=== PATIENT | male | born 1985 | race American Indian/Alaskan Native ===

== ENCOUNTER 2020-12-05 11:35 | Inpatient (IN) | payer OTHER ==
[2020-12-05] MEDS ORDERED: ACETAMINOPHEN 325 MG TAB ONE (11:54)
[2020-12-05] MEDS ORDERED: SODIUM CHLORIDE 0.9% 500 ML 500 ML IV ONE (11:56)
[2020-12-05] MEDS ORDERED: ACETAMINOPHEN 325 MG TAB PO ONE (11:57)
--- NOTE | 2020-12-05 12:08 | Event Note ---
ED Screening Note Date of service: 12/05/20 Time: 12:06 ED Screening Note: 35-year-old male patient presents emergency department with complaints of fever, nausea, vomiting, diarrhea, and fatigue for approximately 8 days. Tested negative for COVID-19 at local urgent care facility today. Temperature 102.3 in triage --> ordered Tylenol SpO2 85% on room air --> ordered supplemental O2 HR 123 --> RN ordered IVF + lactic acid & cultures per sepsis protocol General: Awake, appropriately interactive, no acute distress. Neck: Supple. Full range of motion intact. Cardiovascular: Tachycardic. Normal peripheral perfusion. Pulmonary: No respiratory distress. Patient is speaking normally without use of accessory muscles. Skin: No apparent rashes or lesions. Neurological: No facial asymmetry. Speech is clear. Follows commands. Patient is alert and oriented. Musculoskeletal: Moves all four extremities spontaneously with normal range of motion. Psych: Cooperative. Appropriate mood and affect. I have greeted and performed a focused rapid initial assessment of this patient. A comprehensive ED assessment and evaluation of the patient, analysis of all test results, and completion of the medical decision-making process will be conducted by additional ED providers. This initial assessment/diagnostic orders/clinical plan/treatment(s) is/are subject to change based on patients health status, clinical progression and re-assessment. Further treatment and workup at subsequent clinical provider's discretion. Patient/guardian urged not to elope from the ED as their condition may be serious if not clinically assessed and managed.
[2020-12-05 12:19] LABS: Basophils # (Auto) 0.1 K/mm3 (0.0-0.1); Basophils % (Auto) 1.5 % (0.0-1.8); Hematocrit 47.3 % (35.5-45.6); Hemoglobin 16.2 gm/dl (11.8-15.2); Lymphocytes # (Auto) 1.3 K/mm3 (1.2-5.4); Lymphocytes % (Auto) 24.4 % (13.4-35.0); Mean Corpuscular HGB Conc 34 % (32-34); Mean Corpuscular Volume 85 fl (84-94); Monocytes # (Auto) 0.2 K/mm3 (0.0-0.8); Monocytes % (Auto) 4.3 % (0.0-7.3); Platelet Count 256 K/mm3 (140-440); Red Blood Count 5.53 M/mm3 (3.65-5.03); Red Cell Distribution Width 14.2 % (13.2-15.2)
[2020-12-05 12:32] LABS: Albumin 3.6 g/dL (3.9-5); Calcium 8.7 mg/dL (8.4-10.2)
[2020-12-05 12:35] LABS: INR 0.94 (0.87-1.13)
--- NOTE | 2020-12-05 12:45 | XRay Report ---
CHEST 2 VIEWS INDICATION: possible Sepsis. COMPARISON: None FINDINGS: SUPPORT DEVICES: None. HEART: Within normal limits. LUNGS/PLEURA: Mild patchy bibasilar predominant airspace disease and central peribronchial thickening , all of which appears to be fairly symmetric. Given these findings, there could be an underlying com ponent of edema. No pneumothorax. ADDITIONAL FINDINGS: None. IMPRESSION: 1. Pulmonary findings as above. Signer Name: Maxx Sweeney MD Signed: 12/05/2020 12:41 PM Workstation Name: [id number]
[2020-12-05] MEDS ORDERED: ONDANSETRON 4 MG/2 ML INJ IV ONE (13:17)
[2020-12-05] MEDS ORDERED: methylPREDNISolone Sod Succinate 125 MG/2 ML INJ IV ONE (13:17)
[2020-12-05] MEDS ORDERED: cefTRIAXone/NS 1 GM/50 ML 1 GM/50 ML BAG IV ONE (13:18)
[2020-12-05] MEDS ORDERED: AZITHROMYCIN/NS 500 MG/250 ML 500 MG/250 ML BAG IV ONE (13:18)
--- NOTE | 2020-12-05 13:57 | Emergency Department Report ---
HPI - General Chief Complaint: Nausea/Vomiting/Diarrhea Time Seen by Provider: 12/05/20 12:58 - HPI HPI: This is a 35-year-old male presents to the emergency department with a complaint of a 2-week history of nausea with vomiting, generalized weakness and fatigue, intermittent shortness of breath, and subjective fever. Patient denies any cough, abdominal pain, chest pain, lower extremity swelling. Patient went to an urgent care this afternoon and had a negative [id number] Covid test, but was found to have a low oxygen saturation, and was sent to the emergency department. He denies any past medical history. He just moved here from [place] about 1 month ago and therefore does not have a local primary care physician. He denies any tobacco or illicit drug use. He has not taken anything for symptoms prior to presentation. No sick contacts at home. No obvious known exposure to anyone with COVID-19. ED Past Medical Hx - Past Medical History Previous Medical History?: No - Surgical History Past Surgical History?: No - Social History Smoking Status: Never Smoker Substance Use Type: None - Medications Home Medications: Home Medications Medication Instructions Recorded Confirmed Last Taken Type No Known Home Medications [No 12/05/20 12/05/20 Unknown History Reported Home Medications] ED Review of Systems ROS: Stated complaint: POSSIBLE FOOD POISONING Other details as noted in HPI Comment: All other systems reviewed and negative Constitutional: diaphoresis, fever (Subjective) Eyes: denies: eye pain ENT: denies: ear pain, throat pain Respiratory: shortness of breath. denies: cough Cardiovascular: denies: chest pain, edema Gastrointestinal: nausea, vomiting Genitourinary: denies: dysuria, discharge Musculoskeletal: myalgia. denies: joint swelling Skin: denies: rash, lesions Neurological: denies: numbness, paresthesias Physical Exam - Physical Exam Vital Signs: Vital Signs 12/05/20 11:52 Temperature 102.3 F H Pulse Rate 123 H Respiratory 24 Rate Blood Pressure 146/91 O2 Sat by Pulse 85 Oximetry Physical Exam: GENERAL: The patient is well-developed well-nourished. HENT: Normocephalic. Atraumatic. Patient has moist mucous membranes. EYES: Extraocular motions are intact. Pupils equal reactive to light bilaterally. NECK: Supple. Trachea is midline. CHEST/LUNGS: Clear to auscultation. There is no respiratory distress noted. HEART/CARDIOVASCULAR: Regular. There is moderate tachycardia. There is no murmur. ABDOMEN: Abdomen is soft, nontender. Patient has normal bowel sounds. There is no abdominal distention. SKIN: Patient is diaphoretic. NEURO: The patient is awake, alert, and oriented. The patient is cooperative. The patient has no focal neurologic deficits. Normal speech. MUSCULOSKELETAL: There is no tenderness or deformity. There is no limitation range of motion. ED Course Vital Signs 12/05/20 11:52 Temperature 102.3 F H Pulse Rate 123 H Respiratory 24 Rate Blood Pressure 146/91 O2 Sat by Pulse 85 Oximetry ED Medical Decision Making - Lab Data Result diagrams: 12/05/20 12:03 12/05/20 12:03 Lab Results 12/05/20 12/05/20 12/05/20 Range/Units 12:03 12:03 12:03 WBC 5.5 (4.5-11.0) K/mm3 RBC 5.53 H (3.65-5.03) M/mm3 Hgb 16.2 H (11.8-15.2) gm/dl Hct 47.3 H (35.5-45.6) % MCV 85 (84-94) fl MCH 29 (28-32) pg MCHC 34 (32-34) % RDW 14.2 (13.2-15.2) % Plt Count 256 (140-440) K/mm3 Lymph % (Auto) 24.4 (13.4-35.0) % [place] % (Auto) 4.3 (0.0-7.3) % Eos % (Auto) 0.0 (0.0-4.3) % Baso % (Auto) 1.5 (0.0-1.8) % Lymph # (Auto) 1.3 (1.2-5.4) K/mm3 [place] # (Auto) 0.2 (0.0-0.8) K/mm3 Eos # (Auto) 0.0 (0.0-0.4) K/mm3 Baso # (Auto) 0.1 (0.0-0.1) K/mm3 Seg Neutrophils % 69.8 (40.0-70.0) % Seg Neutrophils # 3.9 (1.8-7.7) K/mm3 PT 12.4 (12.2-14.9) Sec. INR 0.94 (0.87-1.13) D-Dimer (0-234) ng/mlDDU VBG pH (7.320-7.420) Sodium 132 L (137-145) mmol/L Potassium 4.1 (3.6-5.0) mmol/L Chloride 93.5 L (98-107) mmol/L Carbon Dioxide 30 (22-30) mmol/L Anion Gap 13 mmol/L BUN 19 (9-20) mg/dL Creatinine 2.0 H (0.8-1.3) mg/dL Estimated GFR 46 ml/min BUN/Creatinine Ratio 10 % Glucose 124 H (75-100) mg/dL Lactic Acid (0.7-2.0) mmol/L Calcium 8.7 (8.4-10.2) mg/dL Ferritin (30.0-300.0) ng/mL Total Bilirubin 0.40 (0.1-1.2) mg/dL AST 119 H (5-40) units/L ALT 67 H (7-56) units/L Alkaline Phosphatase 26 L (35-129) units/L Lactate Dehydrogenase (91-180) units/L C-Reactive Protein (0.00-1.30) mg/dL NT-Pro-B Natriuret Pep (0-450) pg/mL Total Protein 7.1 (6.3-8.2) g/dL Albumin 3.6 L (3.9-5) g/dL Albumin/Globulin Ratio 1.0 % 12/05/20 12/05/20 12/05/20 Range/Units 12:03 12:03 12:03 WBC (4.5-11.0) K/mm3 RBC (3.65-5.03) M/mm3 Hgb (11.8-15.2) gm/dl Hct (35.5-45.6) % MCV (84-94) fl MCH (28-32) pg MCHC (32-34) % RDW (13.2-15.2) % Plt Count (140-440) K/mm3 Lymph % (Auto) (13.4-35.0) % [place] % (Auto) (0.0-7.3) % Eos % (Auto) (0.0-4.3) % Baso % (Auto) (0.0-1.8) % Lymph # (Auto) (1.2-5.4) K/mm3 [place] # (Auto) (0.0-0.8) K/mm3 Eos # (Auto) (0.0-0.4) K/mm3 Baso # (Auto) (0.0-0.1) K/mm3 Seg Neutrophils % (40.0-70.0) % Seg Neutrophils # (1.8-7.7) K/mm3 PT (12.2-14.9) Sec. INR (0.87-1.13) D-Dimer (0-234) ng/mlDDU VBG pH 7.386 (7.320-7.420) Sodium (137-145) mmol/L Potassium (3.6-5.0) mmol/L Chloride (98-107) mmol/L Carbon Dioxide (22-30) mmol/L Anion Gap mmol/L BUN (9-20) mg/dL Creatinine (0.8-1.3) mg/dL Estimated GFR ml/min BUN/Creatinine Ratio % Glucose (75-100) mg/dL Lactic Acid 1.80 (0.7-2.0) mmol/L Calcium (8.4-10.2) mg/dL Ferritin (30.0-300.0) ng/mL Total Bilirubin (0.1-1.2) mg/dL AST (5-40) units/L ALT (7-56) units/L Alkaline Phosphatase (35-129) units/L Lactate Dehydrogenase (91-180) units/L C-Reactive Protein (0.00-1.30) mg/dL NT-Pro-B Natriuret Pep 9.40 (0-450) pg/mL Total Protein (6.3-8.2) g/dL Albumin (3.9-5) g/dL Albumin/Globulin Ratio % 12/05/20 12/05/20 12/05/20 Range/Units 14:09 14:09 14:09 WBC (4.5-11.0) K/mm3 RBC (3.65-5.03) M/mm3 Hgb (11.8-15.2) gm/dl Hct (35.5-45.6) % MCV (84-94) fl MCH (28-32) pg MCHC (32-34) % RDW (13.2-15.2) % Plt Count (140-440) K/mm3 Lymph % (Auto) (13.4-35.0) % [place] % (Auto) (0.0-7.3) % Eos % (Auto) (0.0-4.3) % Baso % (Auto) (0.0-1.8) % Lymph # (Auto) (1.2-5.4) K/mm3 [place] # (Auto) (0.0-0.8) K/mm3 Eos # (Auto) (0.0-0.4) K/mm3 Baso # (Auto) (0.0-0.1) K/mm3 Seg Neutrophils % (40.0-70.0) % Seg Neutrophils # (1.8-7.7) K/mm3 PT (12.2-14.9) Sec. INR (0.87-1.13) D-Dimer 719.22 H (0-234) ng/mlDDU VBG pH (7.320-7.420) Sodium (137-145) mmol/L Potassium (3.6-5.0) mmol/L Chloride (98-107) mmol/L Carbon Dioxide (22-30) mmol/L Anion Gap mmol/L BUN (9-20) mg/dL Creatinine (0.8-1.3) mg/dL Estimated GFR ml/min BUN/Creatinine Ratio % Glucose (75-100) mg/dL Lactic Acid (0.7-2.0) mmol/L Calcium (8.4-10.2) mg/dL Ferritin 631.9 H (30.0-300.0) ng/mL Total Bilirubin (0.1-1.2) mg/dL AST (5-40) units/L ALT (7-56) units/L Alkaline Phosphatase (35-129) units/L Lactate Dehydrogenase 700 H (91-180) units/L C-Reactive Protein 7.00 H (0.00-1.30) mg/dL NT-Pro-B Natriuret Pep (0-450) pg/mL Total Protein (6.3-8.2) g/dL Albumin (3.9-5) g/dL Albumin/Globulin Ratio % 12/05/20 Range/Units 14:50 WBC (4.5-11.0) K/mm3 RBC (3.65-5.03) M/mm3 Hgb (11.8-15.2) gm/dl Hct (35.5-45.6) % MCV (84-94) fl MCH (28-32) pg MCHC (32-34) % RDW (13.2-15.2) % Plt Count (140-440) K/mm3 Lymph % (Auto) (13.4-35.0) % [place] % (Auto) (0.0-7.3) % Eos % (Auto) (0.0-4.3) % Baso % (Auto) (0.0-1.8) % Lymph # (Auto) (1.2-5.4) K/mm3 [place] # (Auto) (0.0-0.8) K/mm3 Eos # (Auto) (0.0-0.4) K/mm3 Baso # (Auto) (0.0-0.1) K/mm3 Seg Neutrophils % (40.0-70.0) % Seg Neutrophils # (1.8-7.7) K/mm3 PT (12.2-14.9) Sec. INR (0.87-1.13) D-Dimer (0-234) ng/mlDDU VBG pH (7.320-7.420) Sodium (137-145) mmol/L Potassium (3.6-5.0) mmol/L Chloride (98-107) mmol/L Carbon Dioxide (22-30) mmol/L Anion Gap mmol/L BUN (9-20) mg/dL Creatinine (0.8-1.3) mg/dL Estimated GFR ml/min BUN/Creatinine Ratio % Glucose (75-100) mg/dL Lactic Acid 1.60 (0.7-2.0) mmol/L Calcium (8.4-10.2) mg/dL Ferritin (30.0-300.0) ng/mL Total Bilirubin (0.1-1.2) mg/dL AST (5-40) units/L ALT (7-56) units/L Alkaline Phosphatase (35-129) units/L Lactate Dehydrogenase (91-180) units/L C-Reactive Protein (0.00-1.30) mg/dL NT-Pro-B Natriuret Pep (0-450) pg/mL Total Protein (6.3-8.2) g/dL Albumin (3.9-5) g/dL Albumin/Globulin Ratio % - EKG Data -: EKG Interpreted by Me EKG shows normal: sinus rhythm, axis (Left axis deviation), intervals, QRS complexes, ST-T waves Rate: tachycardia (120 bpm) - EKG Data When compared to previous EKG there are: previous EKG unavailable Interpretation: other (Sinus tachycardia at 120 bpm, left axis deviation. No ST elevation HI.) - Radiology Data Radiology results: image reviewed interpreted by me: Chest x-ray shows mild patchy bilateral infiltrates concerning for atypical or viral pneumonia. No pneumothorax. - Medical Decision Making Patient has been dealing with some upper respiratory type symptoms over the past 1 to 2 weeks. He went to an urgent care today was found to have a low pulse ox. Despite allegedly having a negative Covid test this afternoon, the patient appears consistent with a suspected COVID-19 infection. He was 85% on room air through triage and 90 to 92% on room air when I saw him in the room. He was placed on supplemental oxygen. Chest x-ray shows bilateral patchy infiltrates concerning for atypical viral pneumonia. No leukocytosis. Patient has some mild renal insufficiency with a GFR of 45 and a creatinine of 2, transaminitis, and elevated inflammatory markers such as D- dimer, LDH, CRP and ferritin. He has been given Solu-Medrol, IV fluid resuscitation and IV antibiotics. Patient will be admitted to the hospital for further evaluation treatment was accepted for admission by the hospitalist, Dr. Roth. Critical Care Time: No Critical care attestation.: If time is entered above; I have spent that time in minutes in the direct care of this critically ill patient, excluding procedure time. ED Disposition Clinical Impression: Suspected COVID-19 virus infection, Hypoxia, Acute renal insufficiency Pneumonia Qualifiers: Pneumonia type: due to unspecified organism Laterality: bilateral Lung location: unspecified part of lung Qualified Code(s): J18.9 - Pneumonia, unspecified organism Disposition: OP ADMIT IP TO THIS HOSP Is pt being admited?: Yes Condition: Serious Time of Disposition: 14:57
[2020-12-05 16:21] LABS: Bilirubin,Urine NEG (Negative); Blood,Urine LG (Negative); Color,Urine Amber (Yellow); Mucus,Urine 1+ /HPF; Urobilinogen,Urine < 2.0 mg/dL (<2.0)
[2020-12-05] MEDS: ACETAMINOPHEN 325 MG TAB PO PRN (23:32)
--- NOTE | 2020-12-06 00:30 | History and Physical Report ---
History of Present Illness Date of examination: 12/05/20 Date of admission: 12/05/20 14:57 Chief complaint: Low oxygen levels for today Sent by urgent care clinic History of present illness: 35-year-old -[place] male with no significant past medical history comes in for nausea vomiting and generalized weakness. Also intermittent shortness of breath and subjective fever. Denies any cough. Patient went to an urgent care facility this afternoon and had a negative [id number] Covid test was false found to have a low oxygen saturation and was sent to the emergency room for evaluation. No exposure to coronavirus. Patient also has vomiting and diarrhea for the last 3 to 4 days - Past Medical History Previous Medical History?: No - Surgical History Past Surgical History?: No - Social History Smoking Status: Never Smoker Substance Use Type: None Family history Htn Review of Systems ROS: Stated complaint: POSSIBLE FOOD POISONING Other details as noted in HPI Comment: All other systems reviewed and negative Constitutional: diaphoresis, fever (Subjective) Eyes: denies: eye pain ENT: denies: ear pain, throat pain Respiratory: shortness of breath. denies: cough Cardiovascular: denies: chest pain, edema Gastrointestinal: nausea, vomiting Genitourinary: denies: dysuria, discharge Musculoskeletal: myalgia. denies: joint swelling Skin: denies: rash, lesions Neurological: denies: numbness, paresthesias Medications and Allergies Allergies Allergy/AdvReac Type Severity Reaction Status Date / Time No Known Allergies Allergy Unverified 12/05/20 11:47 Home Medications Medication Instructions Recorded Confirmed Last Taken Type No Known Home Medications [No 12/05/20 12/05/20 Unknown History Reported Home Medications] Active Meds: Active Medications Acetaminophen (Acetaminophen 325 Mg Tab) 650 mg PO Q6H PRN PRN Reason: Pain, Mild (1-3) Last Admin: 12/05/20 23:32 Dose: 650 mg Documented by: Exam - Constitutional Vitals: Temp Pulse Resp BP Pulse Ox 97.7 F 104 H 20 132/88 89 12/05/20 22:43 12/05/20 22:43 12/05/20 22:43 12/05/20 22:43 12/05/20 22:43 General appearance: Present: no acute distress, well-nourished - EENT Eyes: Present: PERRL ENT: hearing intact, clear oral mucosa - Neck Neck: Present: supple, normal ROM - Respiratory Respiratory effort: normal Respiratory: bilateral: CTA - Cardiovascular Heart rate: 88 Rhythm: regular Heart Sounds: Present: S1 & S2. Absent: rub, click - Extremities Extremities: pulses symmetrical, No edema Peripheral Pulses: within normal limits - Abdominal General gastrointestinal: Present: soft, non-tender, non-distended, normal bowel sounds Male genitourinary: Present: normal - Rectal Rectal Exam: deferred - Integumentary Integumentary: Present: clear, warm, dry - Musculoskeletal Musculoskeletal: gait normal, strength equal bilaterally - Psychiatric Psychiatric: appropriate mood/affect, intact judgment & insight - Neurologic Neurologic: CNII-XII intact, moves all extremities - Allied Health Allied health notes reviewed: nursing, case management Results - Labs CBC & Chem 7: 12/05/20 12:03 12/05/20 12:03 Labs: Laboratory Last Values WBC 5.5 K/mm3 (4.5-11.0) 12/05/20 12:03 RBC 5.53 M/mm3 (3.65-5.03) H 12/05/20 12:03 Hgb 16.2 gm/dl (11.8-15.2) H 12/05/20 12:03 Hct 47.3 % (35.5-45.6) H 12/05/20 12:03 MCV 85 fl (84-94) 12/05/20 12:03 MCH 29 pg (28-32) 12/05/20 12:03 MCHC 34 % (32-34) 12/05/20 12:03 RDW 14.2 % (13.2-15.2) 12/05/20 12:03 Plt Count 256 K/mm3 (140-440) 12/05/20 12:03 Lymph % (Auto) 24.4 % (13.4-35.0) 12/05/20 12:03 [place] % (Auto) 4.3 % (0.0-7.3) 12/05/20 12:03 Eos % (Auto) 0.0 % (0.0-4.3) 12/05/20 12:03 Baso % (Auto) 1.5 % (0.0-1.8) 12/05/20 12:03 Lymph # (Auto) 1.3 K/mm3 (1.2-5.4) 12/05/20 12:03 [place] # (Auto) 0.2 K/mm3 (0.0-0.8) 12/05/20 12:03 Eos # (Auto) 0.0 K/mm3 (0.0-0.4) 12/05/20 12:03 Baso # (Auto) 0.1 K/mm3 (0.0-0.1) 12/05/20 12:03 Seg Neutrophils % 69.8 % (40.0-70.0) 12/05/20 12:03 Seg Neutrophils # 3.9 K/mm3 (1.8-7.7) 12/05/20 12:03 PT 12.4 Sec. (12.2-14.9) 12/05/20 12:03 INR 0.94 (0.87-1.13) 12/05/20 12:03 D-Dimer 719.22 ng/mlDDU (0-234) H 12/05/20 14:09 VBG pH 7.386 (7.320-7.420) 12/05/20 12:03 Sodium 132 mmol/L (137-145) L 12/05/20 12:03 Potassium 4.1 mmol/L (3.6-5.0) 12/05/20 12:03 Chloride 93.5 mmol/L (98-107) L 12/05/20 12:03 Carbon Dioxide 30 mmol/L (22-30) 12/05/20 12:03 Anion Gap 13 mmol/L 12/05/20 12:03 BUN 19 mg/dL (9-20) 12/05/20 12:03 Creatinine 2.0 mg/dL (0.8-1.3) H 12/05/20 12:03 Estimated GFR 46 ml/min 12/05/20 12:03 BUN/Creatinine Ratio 10 % 12/05/20 12:03 Glucose 124 mg/dL (75-100) H 12/05/20 12:03 Lactic Acid 1.60 mmol/L (0.7-2.0) 12/05/20 14:50 Calcium 8.7 mg/dL (8.4-10.2) 12/05/20 12:03 Ferritin 631.9 ng/mL (30.0-300.0) H 12/05/20 14:09 Total Bilirubin 0.40 mg/dL (0.1-1.2) 12/05/20 12:03 AST 119 units/L (5-40) H 12/05/20 12:03 ALT 67 units/L (7-56) H 12/05/20 12:03 Alkaline Phosphatase 26 units/L (35-129) L 12/05/20 12:03 Lactate Dehydrogenase 700 units/L (91-180) H 12/05/20 14:09 C-Reactive Protein 7.00 mg/dL (0.00-1.30) H 12/05/20 14:09 NT-Pro-B Natriuret Pep 9.40 pg/mL (0-450) 12/05/20 12:03 Total Protein 7.1 g/dL (6.3-8.2) 12/05/20 12:03 Albumin 3.6 g/dL (3.9-5) L 12/05/20 12:03 Albumin/Globulin Ratio 1.0 % 12/05/20 12:03 Urine Color [place] (Yellow) 12/05/20 15:41 Urine Turbidity Slightly-cloudy (Clear) 12/05/20 15:41 Urine pH 5.0 (5.0-7.0) 12/05/20 15:41 Ur Specific [place] 1.023 (1.003-1.030) 12/05/20 15:41 Urine Protein 100 mg/dl mg/dL (Negative) 12/05/20 15:41 Urine Glucose (UA) Neg mg/dL (Negative) 12/05/20 15:41 Urine Ketones 20 mg/dL (Negative) 12/05/20 15:41 Urine Blood Lg (Negative) 12/05/20 15:41 Urine Nitrite Neg (Negative) 12/05/20 15:41 Urine Bilirubin Neg (Negative) 12/05/20 15:41 Urine Urobilinogen < 2.0 mg/dL (<2.0) 12/05/20 15:41 Ur Leukocyte Esterase Neg (Negative) 12/05/20 15:41 Urine WBC (Auto) 18.0 /HPF (0.0-6.0) H 12/05/20 15:41 Urine RBC (Auto) 2.0 /HPF (0.0-6.0) 04/08/21 15:41 U Epithel Cells (Auto) < 1.0 /HPF (0-13.0) 12/05/20 15:41 Urine Mucus 1+ /HPF 12/05/20 15:41 Microbiology: Microbiology 12/05/20 12:03 Peripheral/Venous Blood Culture - Preliminary Culture in Progress 12/05/20 12:03 Peripheral/Venous Blood Culture - Preliminary Culture in Progress - Imaging and Cardiology Imaging and Cardiology: Chest x-ray Mild patchy bibasilar predominant airspace disease and central peribronchial thickening all of which appears to be fairly symmetric. Given these findings there could be an underlying component of edema. No pneumothorax. Art/IV: Voiding Method Toilet Assessment and Plan Advance Directives: Yes (Full code) VTE prophylaxis?: Chemical Plan of care discussed with patient/family: Yes - Patient Problems (1) Acute respiratory failure with hypoxia Current Visit: Yes Status: Acute Plan to address problem: Oxygen as required (2) Bilateral pneumonia Current Visit: Yes Status: Acute Plan to address problem: Treat as community-acquired pneumonia for now IV ceftriaxone and Zithromax for now ID consult requested (3) Suspected COVID-19 virus infection Current Visit: Yes Status: Acute Plan to address problem: Coronavirus PCR in a.m. (4) TIESHA (acute kidney injury) Current Visit: Yes Status: Acute Plan to address problem: IV fluids for 12 hours Vasomotor nephropathy (5) Acute gastroenteritis Current Visit: Yes Status: Acute Plan to address problem: Possible secondary to Covid IV normal saline for 12 hours (6) Transaminitis Current Visit: Yes Status: Acute Plan to address problem: Elevated LFTs possible secondary to Covid (7) Hyponatremia Current Visit: Yes Status: Acute Plan to address problem: IV normal saline for 12 hours (8) DVT prophylaxis Current Visit: Yes Status: Acute Plan to address problem: Lovenox 30 mg subcu daily and GI prophylaxis
[2020-12-06] MEDS ORDERED: dexAMETHasone 4 MG/ML VIAL IV SCH (02:00)
[2020-12-06] MEDS: cefTRIAXone/NS 2 GM/100 ML 2 GM/100 ML BAG IV SCH (10:41)
[2020-12-06] MEDS: AZITHROMYCIN/NS 500 MG/250 ML 500 MG/250 ML BAG IV SCH (10:41)
--- NOTE | 2020-12-06 11:29 | Electrocardiograph Report ---
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
[2020-12-06] MEDS: dexAMETHasone 4 MG/ML VIAL IV SCH (13:33)
--- NOTE | 2020-12-06 15:36 | Progress Note ---
Assessment and Plan Assessment and plan: (1) Acute respiratory failure with hypoxia Current Visit: Yes Status: Acute Plan to address problem: Supplement O2 (2) Bilateral pneumonia Current Visit: Yes Status: Acute Plan to address problem: Treat as community-acquired pneumonia for now IV ceftriaxone and Zithromax for now procal pending (3) Suspected COVID-19 virus infection Current Visit: Yes Status: Acute Plan to address problem: Coronavirus PCR positive ID consulted (4) TIESHA (acute kidney injury) Current Visit: Yes Status: Acute Plan to address problem: IV fluids for 12 hours Vasomotor nephropathy (5) Acute gastroenteritis Current Visit: Yes Status: Acute Plan to address problem: Possible secondary to Covid IV normal saline for 12 hours (6) Transaminitis Current Visit: Yes Status: Acute Plan to address problem: Elevated LFTs possible secondary to Covid Continue to monitor (7) Hyponatremia Current Visit: Yes Status: Acute Plan to address problem: IV normal saline for 12 hours (8) DVT prophylaxis Current Visit: Yes Status: Acute Plan to address problem: Lovenox 30 mg subcu daily and GI prophylaxis DISPOSITION: continue treatment COVID+, continue O2 supplementation History Interval history: 35-year-old -[place] male with no significant past medical history comes in for nausea vomiting and generalized weakness. Also intermittent shortness of breath and subjective fever. Denies any cough. Patient went to an urgent care facility and had a negative [id number] Covid test, however pt found to have a low oxygen saturation and was sent to the emergency room for evaluation. Patient also has vomiting and diarrhea for the last 3 to 4 days. 12/06: pt continues to have SOB w/exertion, no diarrhea however decreased PO intake. COVID PCR+, infectious disease consulted. Hospitalist Physical - Physical exam Narrative exam: General appearance: Present: no acute distress, well-nourished EENT: PERRL, EOM intact, hearing intact, clear oral mucosa, dentition normal Neck: Present: supple, normal ROM Respiratory: bilateral: CTA, negative: rales, rhonchi, wheezing Cardiovascular: Rhythm: regular Heart Sounds: Present: S1 & S2. Absent: gallop, rub Extremities: no ischemia, No edema, normal temperature, normal color, Full ROM Abdominal: soft, non-tender, non-distended, normal bowel sounds Integumentary: Present: clear, warm, dry Psychiatric: appropriate mood/affect, intact judgment & insight Neurologic: CNII-XII intact, moves all extremities - Constitutional Vitals: Temp Pulse Resp BP Pulse Ox 98.8 F 107 H 24 146/97 92 12/06/20 11:11 12/06/20 11:11 12/06/20 11:11 12/06/20 11:11 12/06/20 11:11 Results - Labs CBC & Chem 7: 12/05/20 12:03 12/05/20 12:03 Labs: Laboratory Last Values WBC 5.5 K/mm3 (4.5-11.0) 12/05/20 12:03 RBC 5.53 M/mm3 (3.65-5.03) H 12/05/20 12:03 Hgb 16.2 gm/dl (11.8-15.2) H 12/05/20 12:03 Hct 47.3 % (35.5-45.6) H 12/05/20 12:03 MCV 85 fl (84-94) 12/05/20 12:03 MCH 29 pg (28-32) 12/05/20 12:03 MCHC 34 % (32-34) 12/05/20 12:03 RDW 14.2 % (13.2-15.2) 12/05/20 12:03 Plt Count 256 K/mm3 (140-440) 12/05/20 12:03 Lymph % (Auto) 24.4 % (13.4-35.0) 12/05/20 12:03 [place] % (Auto) 4.3 % (0.0-7.3) 12/05/20 12:03 Eos % (Auto) 0.0 % (0.0-4.3) 12/05/20 12:03 Baso % (Auto) 1.5 % (0.0-1.8) 12/05/20 12:03 Lymph # (Auto) 1.3 K/mm3 (1.2-5.4) 12/05/20 12:03 [place] # (Auto) 0.2 K/mm3 (0.0-0.8) 12/05/20 12:03 Eos # (Auto) 0.0 K/mm3 (0.0-0.4) 12/05/20 12:03 Baso # (Auto) 0.1 K/mm3 (0.0-0.1) 12/05/20 12:03 Seg Neutrophils % 69.8 % (40.0-70.0) 12/05/20 12:03 Seg Neutrophils # 3.9 K/mm3 (1.8-7.7) 12/05/20 12:03 PT 12.4 Sec. (12.2-14.9) 12/05/20 12:03 INR 0.94 (0.87-1.13) 12/05/20 12:03 D-Dimer 719.22 ng/mlDDU (0-234) H 12/05/20 14:09 VBG pH 7.386 (7.320-7.420) 12/05/20 12:03 Sodium 132 mmol/L (137-145) L 12/05/20 12:03 Potassium 4.1 mmol/L (3.6-5.0) 12/05/20 12:03 Chloride 93.5 mmol/L (98-107) L 12/05/20 12:03 Carbon Dioxide 30 mmol/L (22-30) 12/05/20 12:03 Anion Gap 13 mmol/L 12/05/20 12:03 BUN 19 mg/dL (9-20) 12/05/20 12:03 Creatinine 2.0 mg/dL (0.8-1.3) H 12/05/20 12:03 Estimated GFR 46 ml/min 12/05/20 12:03 BUN/Creatinine Ratio 10 % 12/05/20 12:03 Glucose 124 mg/dL (75-100) H 12/05/20 12:03 Lactic Acid 1.60 mmol/L (0.7-2.0) 12/05/20 14:50 Calcium 8.7 mg/dL (8.4-10.2) 12/05/20 12:03 Ferritin 631.9 ng/mL (30.0-300.0) H 12/05/20 14:09 Total Bilirubin 0.40 mg/dL (0.1-1.2) 12/05/20 12:03 AST 119 units/L (5-40) H 12/05/20 12:03 ALT 67 units/L (7-56) H 12/05/20 12:03 Alkaline Phosphatase 26 units/L (35-129) L 12/05/20 12:03 Lactate Dehydrogenase 700 units/L (91-180) H 12/05/20 14:09 C-Reactive Protein 7.00 mg/dL (0.00-1.30) H 12/05/20 14:09 NT-Pro-B Natriuret Pep 9.40 pg/mL (0-450) 12/05/20 12:03 Total Protein 7.1 g/dL (6.3-8.2) 12/05/20 12:03 Albumin 3.6 g/dL (3.9-5) L 12/05/20 12:03 Albumin/Globulin Ratio 1.0 % 12/05/20 12:03 Procalcitonin 0.16 ng/mL (<0.15) 12/05/20 14:09 Urine Color Zuleima (Yellow) 12/05/20 15:41 Urine Turbidity Slightly-cloudy (Clear) 12/05/20 15:41 Urine pH 5.0 (5.0-7.0) 12/05/20 15:41 Ur Specific [place] 1.023 (1.003-1.030) 12/05/20 15:41 Urine Protein 100 mg/dl mg/dL (Negative) 12/05/20 15:41 Urine Glucose (UA) Neg mg/dL (Negative) 12/05/20 15:41 Urine Ketones 20 mg/dL (Negative) 12/05/20 15:41 Urine Blood Lg (Negative) 12/05/20 15:41 Urine Nitrite Neg (Negative) 12/05/20 15:41 Urine Bilirubin Neg (Negative) 12/05/20 15:41 Urine Urobilinogen < 2.0 mg/dL (<2.0) 12/05/20 15:41 Ur Leukocyte Esterase Neg (Negative) 12/05/20 15:41 Urine WBC (Auto) 18.0 /HPF (0.0-6.0) H 12/05/20 15:41 Urine RBC (Auto) 2.0 /HPF (0.0-6.0) 12/05/20 15:41 U Epithel Cells (Auto) < 1.0 /HPF (0-13.0) 12/05/20 15:41 Urine Mucus 1+ /HPF 12/05/20 15:41 Coronavirus (PCR) Positive (Negative) A 12/06/20 Unknown Microbiology: Microbiology 12/05/20 12:03 Peripheral/Venous Blood Culture - Preliminary NO GROWTH AFTER 24 HOURS 12/05/20 12:03 Peripheral/Venous Blood Culture - Preliminary NO GROWTH AFTER 24 HOURS Art/IV: Voiding Method Toilet Active Medications - Current Medications Current Medications: Generic Name Dose Route Start Last Admin Trade Name Freq PRN Reason Stop Dose Admin Acetaminophen 650 mg 12/05/20 23:16 12/05/20 23:32 Acetaminophen 325 Mg Tab PO 650 mg Q6H PRN Administration Pain, Mild (1-3) Dexamethasone 8 mg 12/06/20 12:00 12/06/20 13:33 Dexamethasone 4 Mg/Ml Vial IV 12/14/20 10:01 8 mg Q24HR DEREK Administration Enoxaparin Sodium 40 mg 12/06/20 22:00 Enoxaparin 40 Mg/0.4 Ml Inj SUB-Q QDAY@2200 DEREK Protocol Azithromycin 500 mg in 250 mls @ 250 mls/hr 12/06/20 10:00 12/06/20 10:41 Zithromax/Ns IV 12/09/20 10:59 250 mls/hr Q24HR DEREK Administration Ceftriaxone Sodium 2 gm in 100 mls @ 200 mls/hr 12/06/20 10:00 12/06/20 10:41 Rocephin/Ns 2 Gm/100 Ml IV 200 mls/hr Q24HR DEREK Administration Protocol Nutrition/Malnutrition Assess - Dietary Evaluation Nutrition/Malnutrition Findings: Nutrition Notes Start: 12/06/20 09:06 Freq: Status: Active Protocol: Document 12/06/20 09:06 ADRYAN (Rec: 12/06/20 09:16 ADRYAN [id number]) Nutrition Notes Need for Assessment generated from: MD Order,superannuation clerk,MST Initial or Follow up Assessment Current Diagnosis Acute Kidney Injury, Respiratory Failure Other Pertinent Diagnosis pneu, acute gastroenteritis Current Diet Regular Labs/Tests 12/05: Na 132 Cr 2 AST 119 ALT 67 Pertinent Medications Decadron Height 6 ft 3 in Weight 133 kg Usual Body Weight 145.45 kg [place] Body Weight (kg) 89.09 BMI 36.6 Intake Prior to Admission Poor Weight change and time frame 8.5% wt loss in 2 weeks Weight Status Morbidly Obese Subjective/Other Information MD order for ONS, RN screen for MST. 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 Pt reports feeling better since coming in and ate 100% of dinner last night but unable to eat breakfast this AM. Pt likes the Ensures and is drinking them. Burn Absent Trauma Absent GI Symptoms None Cultural/Ethnic/Confucianist Belief No pork or beef Current % PO Poor (25-49%) Minimum of two criteria Yes Energy Intake (severe) < or equal to 50% Estimated Energy Requirement > or equal to 5 days Interpretation of Weight Loss (severe) >5% in 1 month #1 Nutrition Diagnosis Malnutrition Etiology acute illness As Evidenced by Signs and Symptoms <50% EER for > or = to 5 days, >5% wt loss in 1 month Is patient on ventilator? No Is Patient Ambulatory and/or Out of Bed Yes REE-([facility]-ambulatory/OOB) [ 3049.319 NUTR.MSJOOB] Kcal/Kg value to use for calculation 18 Approximate Energy Requirements Using 2394 kcal/Kg Calculation Used for Recommendations Kcal/kg Additional Notes Protein: 140-176g (1.2-1.5g/kg AdjBW: 117kg) Fluid: 1 ml/kcal Nutrition Intervention Change Diet Order: Continue Add Supplement/Snack (indicate name/kcal Ensure Enlive BID /protein ) Provides kCal: 700 Provides Protein (gm) 40 Goal #1 Meet at least 75% of protein and energy needs via PO and ONS Anticipated Discharge Needs: Regular Follow-Up By: 12/09/20 Additional Comments FU for intakes and ONS tolerance
[2020-12-06] MEDS: ACETAMINOPHEN 325 MG TAB PO PRN (19:13)
[2020-12-06] MEDS: ENOXAPARIN 40 MG/0.4 ML INJ SUB-Q SCH (21:19)
[2020-12-07] MEDS: ACETAMINOPHEN 325 MG TAB PO PRN ×3 (06:32→22:17)
[2020-12-07 06:55] LABS: Hematocrit 43.6 % (35.5-45.6); Hemoglobin 14.6 gm/dl (11.8-15.2); Mean Corpuscular HGB Conc 33 % (32-34); Mean Corpuscular Volume 87 fl (84-94); Platelet Count 340 K/mm3 (140-440); Red Blood Count 5.02 M/mm3 (3.65-5.03); Red Cell Distribution Width 14.4 % (13.2-15.2)
[2020-12-07 07:12] LABS: Alanine Aminotransferase 63 units/L (7-56); Albumin 3.6 g/dL (3.9-5); BUN/Creatinine Ratio 18; Blood Urea Nitrogen 24 mg/dL (9-20); Calcium 8.4 mg/dL (8.4-10.2); Hemolysis Index 2
[2020-12-07] MEDS: cefTRIAXone/NS 2 GM/100 ML 2 GM/100 ML BAG IV SCH (10:57)
[2020-12-07] MEDS: AZITHROMYCIN/NS 500 MG/250 ML 500 MG/250 ML BAG IV SCH (10:57)
[2020-12-07] MEDS: dexAMETHasone 4 MG/ML VIAL IV SCH (10:57)
--- NOTE | 2020-12-07 11:19 | Progress Note ---
Assessment and Plan Assessment and plan: 35-year-old -[place] male with no significant past medical history comes in for nausea vomiting and generalized weakness. Also intermittent shortness of breath and subjective fever. Denies any cough. Patient went to an urgent care facility and had a negative [id number] Covid test, however pt found to have a low oxygen saturation and was sent to the emergency room for evaluation. Patient also has vomiting and diarrhea for the last 3 to 4 days. (1) Acute respiratory failure with hypoxia Current Visit: Yes Status: Acute Plan to address problem: 2/2 covid PNA Supplement O2 continue dexamethasone If no improvement, consider CTA to r/o PE (2) Bilateral pneumonia Current Visit: Yes Status: Acute Plan to address problem: Treat as community-acquired pneumonia for now IV ceftriaxone and Zithromax for now Procal pending, if low, DC ABX (3) Suspected COVID-19 virus infection Current Visit: Yes Status: Acute Plan to address problem: Coronavirus PCR positive ID consulted, renal function improved, possible remdesevir initiation (4) TIESHA (acute kidney injury) Current Visit: Yes Status: Acute Plan to address problem: Improved with fluids Vasomotor nephropathy (5) Acute gastroenteritis Current Visit: Yes Status: Acute Plan to address problem: Possible secondary to Covid resolved (6) Transaminitis Current Visit: Yes Status: Acute Plan to address problem: Elevated LFTs possible secondary to Covid Continue to monitor (7) Hyponatremia Current Visit: Yes Status: Acute Plan to address problem: IV normal saline for 12 hours (8) DVT prophylaxis Current Visit: Yes Status: Acute Plan to address problem: Lovenox 30 mg subcu daily and GI prophylaxis DISPOSITION: continue treatment COVID+, continue O2 supplementation History Interval history: 12/06: pt continues to have SOB w/exertion, no diarrhea however decreased PO intake. COVID PCR+, infectious disease consulted. 12/07: pt without diarrhea, tolerating diet. on 4L NC O2, continues to have SOB Hospitalist Physical - Physical exam Narrative exam: General appearance: Present: no acute distress, well-nourished EENT: PERRL, EOM intact, hearing intact, clear oral mucosa, dentition normal Neck: Present: supple, normal ROM Respiratory: 4L NC O2, bilateral CTA, negative: rales, rhonchi, wheezing Cardiovascular: Rhythm: regular Heart Sounds: Present: S1 & S2. Absent: gallop, rub Extremities: no ischemia, No edema, normal temperature, normal color, Full ROM Abdominal: soft, non-tender, non-distended, normal bowel sounds Integumentary: Present: clear, warm, dry Psychiatric: appropriate mood/affect, intact judgment & insight Neurologic: CNII-XII intact, moves all extremities - Constitutional Vitals: Temp Pulse Resp BP Pulse Ox 102.2 F H 110 H 20 135/88 96 12/07/20 06:35 12/07/20 07:59 12/07/20 06:35 12/07/20 07:59 12/07/20 09:04 General appearance: Present: no acute distress, well-nourished Results - Labs CBC & Chem 7: 12/07/20 06:13 12/07/20 06:13 Labs: Laboratory Last Values WBC 9.8 K/mm3 (4.5-11.0) 12/07/20 06:13 RBC 5.02 M/mm3 (3.65-5.03) 12/07/20 06:13 Hgb 14.6 gm/dl (11.8-15.2) 12/07/20 06:13 Hct 43.6 % (35.5-45.6) 12/07/20 06:13 MCV 87 fl (84-94) 12/07/20 06:13 MCH 29 pg (28-32) 12/07/20 06:13 MCHC 33 % (32-34) 12/07/20 06:13 RDW 14.4 % (13.2-15.2) 12/07/20 06:13 Plt Count 340 K/mm3 (140-440) 12/07/20 06:13 Lymph % (Auto) 24.4 % (13.4-35.0) 12/05/20 12:03 [place] % (Auto) 4.3 % (0.0-7.3) 12/05/20 12:03 Eos % (Auto) 0.0 % (0.0-4.3) 12/05/20 12:03 Baso % (Auto) 1.5 % (0.0-1.8) 12/05/20 12:03 Lymph # (Auto) 1.3 K/mm3 (1.2-5.4) 12/05/20 12:03 [place] # (Auto) 0.2 K/mm3 (0.0-0.8) 12/05/20 12:03 Eos # (Auto) 0.0 K/mm3 (0.0-0.4) 12/05/20 12:03 Baso # (Auto) 0.1 K/mm3 (0.0-0.1) 12/05/20 12:03 Seg Neutrophils % 69.8 % (40.0-70.0) 12/05/20 12:03 Seg Neutrophils # 3.9 K/mm3 (1.8-7.7) 12/05/20 12:03 PT 12.4 Sec. (12.2-14.9) 12/05/20 12:03 INR 0.94 (0.87-1.13) 12/05/20 12:03 D-Dimer 719.22 ng/mlDDU (0-234) H 12/05/20 14:09 VBG pH 7.386 (7.320-7.420) 12/05/20 12:03 Sodium 143 mmol/L (137-145) D 12/07/20 06:13 Potassium 4.3 mmol/L (3.6-5.0) 12/07/20 06:13 Chloride 99.1 mmol/L (98-107) 12/07/20 06:13 Carbon Dioxide 34 mmol/L (22-30) H 12/07/20 06:13 Anion Gap 14 mmol/L 12/07/20 06:13 BUN 24 mg/dL (9-20) H 12/07/20 06:13 Creatinine 1.3 mg/dL (0.8-1.3) 12/07/20 06:13 Estimated GFR > 60 ml/min 12/07/20 06:13 BUN/Creatinine Ratio 18 % 12/07/20 06:13 Glucose 137 mg/dL (75-100) H 12/07/20 06:13 Lactic Acid 1.60 mmol/L (0.7-2.0) 12/05/20 14:50 Calcium 8.4 mg/dL (8.4-10.2) 12/07/20 06:13 Ferritin 631.9 ng/mL (30.0-300.0) H 12/05/20 14:09 Total Bilirubin 0.40 mg/dL (0.1-1.2) 12/07/20 06:13 AST 53 units/L (5-40) H 12/07/20 06:13 ALT 63 units/L (7-56) H 12/07/20 06:13 Alkaline Phosphatase 28 units/L (35-129) L 12/07/20 06:13 Lactate Dehydrogenase 700 units/L (91-180) H 12/05/20 14:09 C-Reactive Protein 7.00 mg/dL (0.00-1.30) H 12/05/20 14:09 NT-Pro-B Natriuret Pep 9.40 pg/mL (0-450) 12/05/20 12:03 Total Protein 6.5 g/dL (6.3-8.2) 12/07/20 06:13 Albumin 3.6 g/dL (3.9-5) L 12/07/20 06:13 Albumin/Globulin Ratio 1.2 % 12/07/20 06:13 Procalcitonin 0.16 ng/mL (<0.15) 12/05/20 14:09 Urine Color Zuleima (Yellow) 12/05/20 15:41 Urine Turbidity Slightly-cloudy (Clear) 12/05/20 15:41 Urine pH 5.0 (5.0-7.0) 12/05/20 15:41 Ur Specific [place] 1.023 (1.003-1.030) 12/05/20 15:41 Urine Protein 100 mg/dl mg/dL (Negative) 12/05/20 15:41 Urine Glucose (UA) Neg mg/dL (Negative) 12/05/20 15:41 Urine Ketones 20 mg/dL (Negative) 12/05/20 15:41 Urine Blood Lg (Negative) 12/05/20 15:41 Urine Nitrite Neg (Negative) 12/05/20 15:41 Urine Bilirubin Neg (Negative) 12/05/20 15:41 Urine Urobilinogen < 2.0 mg/dL (<2.0) 12/05/20 15:41 Ur Leukocyte Esterase Neg (Negative) 12/05/20 15:41 Urine WBC (Auto) 18.0 /HPF (0.0-6.0) H 12/05/20 15:41 Urine RBC (Auto) 2.0 /HPF (0.0-6.0) 12/05/20 15:41 U Epithel Cells (Auto) < 1.0 /HPF (0-13.0) 12/05/20 15:41 Urine Mucus 1+ /HPF 12/05/20 15:41 Coronavirus (PCR) Positive (Negative) A 12/06/20 Unknown Microbiology: Microbiology 12/05/20 12:03 Peripheral/Venous Blood Culture - Preliminary NO GROWTH AFTER 24 HOURS 12/05/20 12:03 Peripheral/Venous Blood Culture - Preliminary NO GROWTH AFTER 24 HOURS Art/IV: Voiding Method Toilet Active Medications - Current Medications Current Medications: Generic Name Dose Route Start Last Admin Trade Name Freq PRN Reason Stop Dose Admin Acetaminophen 650 mg 12/05/20 23:16 12/07/20 10:57 Acetaminophen 325 Mg Tab PO 650 mg Q6H PRN Administration Pain, Mild (1-3) Dexamethasone 8 mg 12/06/20 12:00 12/07/20 10:57 Dexamethasone 4 Mg/Ml Vial IV 12/14/20 10:01 8 mg Q24HR DEREK Administration Enoxaparin Sodium 40 mg 12/06/20 22:00 12/06/20 21:19 Enoxaparin 40 Mg/0.4 Ml Inj SUB-Q 40 mg QDAY@2200 DEREK Administration Protocol Azithromycin 500 mg in 250 mls @ 250 mls/hr 12/06/20 10:00 12/07/20 10:57 Zithromax/Ns IV 12/09/20 10:59 200 mls/hr Q24HR DEREK Administration Ceftriaxone Sodium 2 gm in 100 mls @ 200 mls/hr 12/06/20 10:00 12/07/20 10:57 Rocephin/Ns 2 Gm/100 Ml IV 200 mls/hr Q24HR DEREK Administration Protocol Nutrition/Malnutrition Assess - Dietary Evaluation Nutrition/Malnutrition Findings: Nutrition Notes Start: 12/06/20 09:06 Freq: Status: Active Protocol: Document 12/06/20 09:06 ADRYAN (Rec: 12/06/20 09:16 ADRYAN [id number]) Nutrition Notes 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 Pt reports feeling better since coming in and ate 100% of dinner last night but unable to eat breakfast this AM. Pt likes the Ensures and is drinking them. Burn Absent Trauma Absent GI Symptoms None Cultural/Ethnic/Episcopalian Belief No pork or beef Current % PO Poor (25-49%) Minimum of two criteria Yes Energy Intake (severe) < or equal to 50% Estimated Energy Requirement > or equal to 5 days Interpretation of Weight Loss (severe) >5% in 1 month #1 Nutrition Diagnosis Malnutrition Etiology acute illness As Evidenced by Signs and Symptoms <50% EER for > or = to 5 days, >5% wt loss in 1 month Is patient on ventilator? No Is Patient Ambulatory and/or Out of Bed Yes REE-([facility]-ambulatory/OOB) [ 3049.319 NUTR.MSJOOB] Kcal/Kg value to use for calculation 18 Approximate Energy Requirements Using 2394 kcal/Kg Calculation Used for Recommendations Kcal/kg Additional Notes Protein: 140-176g (1.2-1.5g/kg AdjBW: 117kg) Fluid: 1 ml/kcal Nutrition Intervention Change Diet Order: Continue Add Supplement/Snack (indicate name/kcal [place] Enlive BID /protein ) Provides kCal: 700 Provides Protein (gm) 40 Goal #1 Meet at least 75% of protein and energy needs via PO and ONS Anticipated Discharge Needs: Regular Follow-Up By: 12/09/20 Additional Comments FU for intakes and ONS tolerance
[2020-12-07] MEDS ORDERED: REMDESIVIR 200 MG in SODIUM CHLORIDE 0.9% 250ML 250 ML IV ONE (14:36)
--- NOTE | 2020-12-07 14:37 | Consultation ---
History of Present Illness - Reason for Consult Consult date: 12/07/20 COVID/hypoxia Requesting physician: YECENIA ASHRAF - History of Present Illness 35 years old male with no significant medical history admitted on 12/05/2020 secondary to generalized weakness, nausea, vomiting, diarrhea and subjective fever for 4 days. Patient denies cough. Patient was seen in an urgent care facility where he was found hypoxic. Covid test there was negative. On arrival, temperature 102.3, HR 123, RR 24, O2 sat 85%, BP 146/91. Initial WBC 5.5. D-dimer 719. Ferritin 631. AST 119, ALT 67. CRP 7. Procalcitonin 0.1. Urinalysis with 18 WBCs. Blood culture 12/05/2020 no growth today. Chest x-ray shows patchy bibasilar infiltrates. Review of Systems: reviewed ED and H&P notes. Review of system deferred to minimize COVID-19 transmission. Medications and Allergies Allergies Allergy/AdvReac Type Severity Reaction Status Date / Time No Known Allergies Allergy Unverified 12/05/20 11:47 Home Medications Medication Instructions Recorded Confirmed Last Taken Type No Known Home Medications [No 12/05/20 12/05/20 Unknown History Reported Home Medications] Active Meds: Active Medications Acetaminophen (Acetaminophen 325 Mg Tab) 650 mg PO Q6H PRN PRN Reason: Pain, Mild (1-3) Last Admin: 12/07/20 10:57 Dose: 650 mg Documented by: Dexamethasone (Dexamethasone 4 Mg/Ml Vial) 8 mg IV Q24HR DEREK Stop: 12/14/20 10:01 Last Admin: 12/07/20 10:57 Dose: 8 mg Documented by: Enoxaparin Sodium (Enoxaparin 40 Mg/0.4 Ml Inj) 40 mg SUB-Q QDAY@2200 DEREK; Protocol Last Admin: 12/06/20 21:19 Dose: 40 mg Documented by: Azithromycin (Zithromax/Ns) 500 mg in 250 mls @ 250 mls/hr IV Q24HR DEREK Stop: 12/09/20 10:59 Last Infusion: 12/07/20 14:07 Dose: Infused Documented by: Ceftriaxone Sodium (Rocephin/Ns 2 Gm/100 Ml) 2 gm in 100 mls @ 200 mls/hr IV Q24HR DEREK; Protocol Last Infusion: 12/07/20 14:07 Dose: Infused Documented by: REMDESIVIR 200 mg/ Sodium (Chloride) 250 mls @ 500 mls/hr IV ONCE ONE Stop: 12/07/20 15:05 REMDESIVIR 100 mg/ Sodium (Chloride) 250 mls @ 500 mls/hr IV Q24HR@2100 DEREK Stop: 12/11/20 21:29 Sodium Chloride (Sodium Chloride 0.9% 50 Ml Ivpb) 50 ml IV Q24HR@2100 DEREK Stop: 12/11/20 21:01 Physical Examination - Physical Exam Narrative exam: Physical exam deferred to minimize COVID-19 transmission during pandemic. - Constitutional Vitals: Vital Signs Temp Pulse Resp BP Pulse Ox 102.2 F H 110 H 20 135/88 96 12/07/20 06:35 12/07/20 07:59 12/07/20 06:35 12/07/20 07:59 12/07/20 09:04 Temperature -Last 24 Hours Temperature 102.2 F Temperature 99.2 F Results - Labs CBC & Chem 7: 12/07/20 06:13 12/07/20 06:13 Labs: Abnormal lab results 12/06/20 12/07/20 Range/Units Unknown 06:13 Carbon Dioxide 34 H (22-30) mmol/L BUN 24 H (9-20) mg/dL Glucose 137 H (75-100) mg/dL AST 53 H (5-40) units/L ALT 63 H (7-56) units/L Alkaline Phosphatase 28 L (35-129) units/L Albumin 3.6 L (3.9-5) g/dL Coronavirus (PCR) Positive A (Negative) Assessment and Plan Cultures: Blood culture no growth today SARS CoV2 PCR positive Assessment: 35 years old male with no significant medical history admitted on 12/05/2020 secondary to generalized weakness, nausea, vomiting, diarrhea and subjective fever for 4 days: #Severe sepsis: Present on admission with high fever, tachycardia, hypoxia, l ikely due to bilateral pneumonia. #Severe COVID pneumonia: Chest x-ray with bibasilar infiltrates. Inflammatory markers elevated. #Acute hypoxemic respiratory failure: O2 sat dropped to 85%. Patient currently on 4 L nasal cannula. #Elevated LFTs: from COVID #Nausea, vomiting, diarrhea: Likely due to acute COVID-19. #UTI: mild pyuria, no LE Recommendations: -Continue dexamethasone 6 mg IV/PO daily for 10 days -Start Remdesivir for 5 days (male>30 mg/mL) ordered -Monitor inflammatory markers - ferritin, Ddimer, CRP, LDH -Monitor liver function test on Remdesivir -Continue anticoagulation per System Protocol -Prone positioning as possible -Stop ceftriaxone and azithromycin, procalcitonin <0.25 ng/mL -Macrobid po bid for 5 days for UTI, f/u urine cx All laboratory, cultures and imaging were reviewed. Will follow Jaky Beasley MD Infectious Diseases Venue Attendant [facility] M [phone] O [phone]
[2020-12-07] MEDS ORDERED: REMDESIVIR 100 MG VIAL IV ONE (14:46)
[2020-12-07] MEDS ORDERED: SODIUM CHLORIDE 0.9% 50 ML ONE (15:01)
[2020-12-07] MEDS ORDERED: NITROFURANTOIN MONOHYD/M-CRYST 100 MG CAP PO SCH (16:00)
[2020-12-07 16:08] LABS: Alanine Aminotransferase 56 units/L (7-56); Albumin 2.8 g/dL (3.9-5); BUN/Creatinine Ratio 16; Blood Urea Nitrogen 21 mg/dL (9-20); Hemolysis Index 13
[2020-12-07] MEDS: SODIUM CHLORIDE 0.9% 50 ML IVPB IV SCH (20:48)
[2020-12-07] MEDS: ENOXAPARIN 40 MG/0.4 ML INJ SUB-Q SCH (21:00)
[2020-12-07] MEDS: NITROFURANTOIN MONOHYD/M-CRYST 100 MG CAP PO SCH (21:01)
[2020-12-07] MEDS: guaiFENesin ER 600 MG TAB PO SCH (22:17)
[2020-12-07] MEDS: BENZONATATE 100 MG CAP PO SCH (22:17)
[2020-12-08] MEDS: BENZONATATE 100 MG CAP PO SCH ×3 (06:55→21:28)
[2020-12-08 07:20] LABS: Alanine Aminotransferase 58 units/L (7-56); Albumin 3.2 g/dL (3.9-5); BUN/Creatinine Ratio 19; Blood Urea Nitrogen 19 mg/dL (9-20); Calcium 8.4 mg/dL (8.4-10.2); Hemolysis Index 1
[2020-12-08] MEDS: NITROFURANTOIN MONOHYD/M-CRYST 100 MG CAP PO SCH ×2 (09:29→21:27)
[2020-12-08] MEDS: guaiFENesin ER 600 MG TAB PO SCH ×2 (09:29→21:28)
[2020-12-08] MEDS: dexAMETHasone 4 MG/ML VIAL IV SCH (09:30)
--- NOTE | 2020-12-08 12:39 | Progress Note ---
Assessment and Plan Cultures: Blood culture no growth today SARS CoV2 PCR positive Assessment: 35 years old male with no significant medical history admitted on 12/05/2020 secondary to generalized weakness, nausea, vomiting, diarrhea and subjective fever for 4 days: #Severe sepsis: Present on admission with high fever, tachycardia, hypoxia, likely due to bilateral pneumonia. #Severe COVID pneumonia: Chest x-ray with bibasilar infiltrates. Inflammatory markers elevated. #Acute hypoxemic respiratory failure: O2 sat dropped to 85%. Desats overnight now on 5L. #Elevated LFTs: from COVID #Nausea, vomiting, diarrhea: Likely due to acute COVID-19. Resolved. #UTI: mild pyuria, no LE Recommendations: -Continue dexamethasone 6 mg IV/PO daily for 10 days -Continue Remdesivir for 5 days (male>30 mg/mL) D2 of 5 -Monitor inflammatory markers - ferritin, Ddimer, CRP, LDH, ordered today -Monitor liver function test on Remdesivir -Continue anticoagulation per System Protocol -Prone positioning as possible -Macrobid po bid for 5 days for UTI, f/u urine cx Patient seen and examined. Discussed with patient plan All laboratory, cultures and imaging were reviewed. Close monitor if further desaturation and increasing O2 req will consult pulm Will follow Jaky Beasley MD Infectious Diseases Gardener [facility] M [phone] O [phone] Subjective Date of service: 12/08/20 Principal diagnosis: COVID-19 Interval history: Patient reported feeling about the same. Had a bad night with shortness of breath and dyspnea on exertion. Noted desaturation to 89%. Now on 5 L nasal cannula. No fever overnight. Objective - Exam Narrative Exam: General appearance: Alert in NAD pleasant Eyes: anicteric sclerae, moist conjunctivae; no lid-lag; PERRLA HENT: Normocephalic, Atraumatic; normal external ears, nares open, oropharynx clear Neck: supple, tracheal midline, no JVD Lungs: Scattered crackles bilaterally CV: RRR no murmur Abdomen: Soft, non-tender; no masses or hepatosplenomegaly Extremities: no edema, no cyanosis Skin: No rash. Psych: no agitated Neuro: alert and oriented x 3. Moving all extermities - Constitutional Vitals: Vital Signs Temp Pulse Resp BP Pulse Ox 98.6 F 96 H 20 144/98 93 12/08/20 04:01 12/08/20 04:01 12/08/20 04:01 12/08/20 04:01 12/08/20 12:05 Temperature -Last 24 Hours Temperature 98.6 F Temperature 98.5 F - Labs CBC & Chem 7: 12/07/20 06:13 12/08/20 06:39 Labs: Abnormal lab results 12/07/20 12/08/20 Range/Units 14:51 06:39 BUN 21 H (9-20) mg/dL Glucose 152 H 120 H (75-100) mg/dL Calcium 8.0 L (8.4-10.2) mg/dL AST 47 H 41 H (5-40) units/L ALT 58 H (7-56) units/L Alkaline Phosphatase 24 L 27 L (35-129) units/L Total Protein 5.7 L 6.2 L (6.3-8.2) g/dL Albumin 2.8 L 3.2 L (3.9-5) g/dL
--- NOTE | 2020-12-08 13:30 | Progress Note ---
Assessment and Plan Assessment and plan: 35-year-old -Russian male with no significant past medical history comes in for nausea vomiting and generalized weakness. Also intermittent shortness of breath and subjective fever. Denies any cough. Patient went to an urgent care facility and had a negative [id number] Covid test, however pt found to have a low oxygen saturation and was sent to the emergency room for evaluation. Patient also has vomiting and diarrhea for the last 3 to 4 days. (1) Acute respiratory failure with hypoxia Current Visit: Yes Status: Acute Plan to address problem: 2/2 covid PNA Supplement O2 continue dexamethasone If no improvement, consider CTA to r/o PE (2) Bilateral pneumonia Current Visit: Yes Status: Acute Plan to address problem: CAP treated, however procal low IV ceftriaxone and Zithromax DC'd (3) Suspected COVID-19 virus infection Current Visit: Yes Status: Acute Plan to address problem: Coronavirus PCR positive ID consulted Dexamethasone and remdesevir (4) TIESHA (acute kidney injury) Current Visit: Yes Status: Acute Plan to address problem: Improved with fluids Vasomotor nephropathy resolved (5) Acute gastroenteritis Current Visit: Yes Status: Acute Plan to address problem: Possible secondary to Covid resolved (6) Transaminitis Current Visit: Yes Status: Acute Plan to address problem: Elevated LFTs possible secondary to Covid Continue to monitor (7) Hyponatremia Current Visit: Yes Status: Acute Plan to address problem: resolved w/fluids (8) DVT prophylaxis Current Visit: Yes Status: Acute Plan to address problem: Lovenox 30 mg subcu daily and GI prophylaxis DISPOSITION: continue treatment COVID+, continue O2 supplementation History Interval history: 12/06: pt continues to have SOB w/exertion, no diarrhea however decreased PO intake. COVID PCR+, infectious disease consulted. 12/07: pt without diarrhea, tolerating diet. on 4L NC O2, continues to have SOB 12/08 pt seen, no distress, on 4L O2. spoke with nurse to walk pt w/o O2, remdesivir started. pt states he's feeling better, would like to be weaned off O2 Hospitalist Physical - Physical exam Narrative exam: General appearance: Present: no acute distress, well-nourished EENT: PERRL, EOM intact, hearing intact, clear oral mucosa, dentition normal Neck: Present: supple, normal ROM Respiratory: 4L NC O2, bilateral CTA, negative: rales, rhonchi, wheezing, no acute distress Cardiovascular: Rhythm: regular Heart Sounds: Present: S1 & S2. Absent: gallop, rub Extremities: no ischemia, No edema, normal temperature, normal color, Full ROM Abdominal: soft, non-tender, non-distended, normal bowel sounds Integumentary: Present: clear, warm, dry Psychiatric: appropriate mood/affect, intact judgment & insight Neurologic: CNII-XII intact, moves all extremities - Constitutional Vitals: Temp Pulse Resp BP Pulse Ox 98.6 F 96 H 20 144/98 93 12/08/20 04:01 12/08/20 04:01 12/08/20 04:01 12/08/20 04:01 12/08/20 12:05 General appearance: Present: no acute distress, well-nourished Results - Labs CBC & Chem 7: 12/07/20 06:13 12/08/20 06:39 Labs: Laboratory Last Values WBC 9.8 K/mm3 (4.5-11.0) 12/07/20 06:13 RBC 5.02 M/mm3 (3.65-5.03) 12/07/20 06:13 Hgb 14.6 gm/dl (11.8-15.2) 12/07/20 06:13 Hct 43.6 % (35.5-45.6) 12/07/20 06:13 MCV 87 fl (84-94) 12/07/20 06:13 MCH 29 pg (28-32) 12/07/20 06:13 MCHC 33 % (32-34) 12/07/20 06:13 RDW 14.4 % (13.2-15.2) 12/07/20 06:13 Plt Count 340 K/mm3 (140-440) 12/07/20 06:13 Lymph % (Auto) 24.4 % (13.4-35.0) 12/05/20 12:03 [place] % (Auto) 4.3 % (0.0-7.3) 12/05/20 12:03 Eos % (Auto) 0.0 % (0.0-4.3) 12/05/20 12:03 Baso % (Auto) 1.5 % (0.0-1.8) 12/05/20 12:03 Lymph # (Auto) 1.3 K/mm3 (1.2-5.4) 12/05/20 12:03 [place] # (Auto) 0.2 K/mm3 (0.0-0.8) 12/05/20 12:03 Eos # (Auto) 0.0 K/mm3 (0.0-0.4) 12/05/20 12:03 Baso # (Auto) 0.1 K/mm3 (0.0-0.1) 12/05/20 12:03 Seg Neutrophils % 69.8 % (40.0-70.0) 12/05/20 12:03 Seg Neutrophils # 3.9 K/mm3 (1.8-7.7) 12/05/20 12:03 PT 12.4 Sec. (12.2-14.9) 12/05/20 12:03 INR 0.94 (0.87-1.13) 12/05/20 12:03 D-Dimer 719.22 ng/mlDDU (0-234) H 12/05/20 14:09 VBG pH 7.386 (7.320-7.420) 12/05/20 12:03 Sodium 139 mmol/L (137-145) 12/08/20 06:39 Potassium 4.6 mmol/L (3.6-5.0) 12/08/20 06:39 Chloride 100.5 mmol/L (98-107) 12/08/20 06:39 Carbon Dioxide 29 mmol/L (22-30) 12/08/20 06:39 Anion Gap 14 mmol/L 12/08/20 06:39 BUN 19 mg/dL (9-20) 12/08/20 06:39 Creatinine 1.0 mg/dL (0.8-1.3) 12/08/20 06:39 Estimated GFR > 60 ml/min 12/08/20 06:39 BUN/Creatinine Ratio 19 % 12/08/20 06:39 Glucose 120 mg/dL (75-100) H 12/08/20 06:39 Lactic Acid 1.60 mmol/L (0.7-2.0) 12/05/20 14:50 Calcium 8.4 mg/dL (8.4-10.2) 12/08/20 06:39 Ferritin 631.9 ng/mL (30.0-300.0) H 12/05/20 14:09 Total Bilirubin 0.50 mg/dL (0.1-1.2) 12/08/20 06:39 AST 41 units/L (5-40) H 12/08/20 06:39 ALT 58 units/L (7-56) H 12/08/20 06:39 Alkaline Phosphatase 27 units/L (35-129) L 12/08/20 06:39 Lactate Dehydrogenase 700 units/L (91-180) H 12/05/20 14:09 C-Reactive Protein 7.00 mg/dL (0.00-1.30) H 12/05/20 14:09 NT-Pro-B Natriuret Pep 9.40 pg/mL (0-450) 12/05/20 12:03 Total Protein 6.2 g/dL (6.3-8.2) L 12/08/20 06:39 Albumin 3.2 g/dL (3.9-5) L 12/08/20 06:39 Albumin/Globulin Ratio 1.1 % 12/08/20 06:39 Procalcitonin 0.07 ng/mL (<0.15) 12/07/20 06:13 Urine Color [place] (Yellow) 12/05/20 15:41 Urine Turbidity Slightly-cloudy (Clear) 12/05/20 15:41 Urine pH 5.0 (5.0-7.0) 12/05/20 15:41 Ur Specific [place] 1.023 (1.003-1.030) 12/05/20 15:41 Urine Protein 100 mg/dl mg/dL (Negative) 12/05/20 15:41 Urine Glucose (UA) Neg mg/dL (Negative) 12/05/20 15:41 Urine Ketones 20 mg/dL (Negative) 12/05/20 15:41 Urine Blood Lg (Negative) 12/05/20 15:41 Urine Nitrite Neg (Negative) 12/05/20 15:41 Urine Bilirubin Neg (Negative) 12/05/20 15:41 Urine Urobilinogen < 2.0 mg/dL (<2.0) 12/05/20 15:41 Ur Leukocyte Esterase Neg (Negative) 12/05/20 15:41 Urine WBC (Auto) 18.0 /HPF (0.0-6.0) H 12/05/20 15:41 Urine RBC (Auto) 2.0 /HPF (0.0-6.0) 12/05/20 15:41 U Epithel Cells (Auto) < 1.0 /HPF (0-13.0) 12/05/20 15:41 Urine Mucus 1+ /HPF 12/05/20 15:41 Coronavirus (PCR) Positive (Negative) A 12/06/20 Unknown Microbiology: Microbiology 12/05/20 12:03 Peripheral/Venous Blood Culture - Preliminary NO GROWTH AFTER 72 HOURS 12/05/20 12:03 Peripheral/Venous Blood Culture - Preliminary NO GROWTH AFTER 72 HOURS 12/05/20 15:41 Urine,Clean Catch Urine Culture - Preliminary NO GROWTH AFTER 24 HOURS Art/IV: Voiding Method Toilet Active Medications - Current Medications Current Medications: Generic Name Dose Route Start Last Admin Trade Name Freq PRN Reason Stop Dose Admin Acetaminophen 650 mg 12/05/20 23:16 12/07/20 22:17 Acetaminophen 325 Mg Tab PO 650 mg Q6H PRN Administration Pain, Mild (1-3) Benzonatate 100 mg 12/07/20 22:00 12/08/20 06:55 Benzonatate 100 Mg Cap PO 12/12/20 21:59 100 mg Q8HR DEREK Administration Dexamethasone 8 mg 12/06/20 12:00 12/08/20 09:30 Dexamethasone 4 Mg/Ml Vial IV 12/14/20 10:01 8 mg Q24HR DEREK Administration Enoxaparin Sodium 40 mg 12/06/20 22:00 12/07/20 21:00 Enoxaparin 40 Mg/0.4 Ml Inj SUB-Q 40 mg QDAY@2200 [facility] Administration Protocol Guaifenesin 600 mg 12/07/20 22:00 12/08/20 09:29 Guaifenesin Er 600 Mg Tab PO 600 mg BID DEREK Administration REMDESIVIR 100 mg/ Sodium 250 mls @ 500 mls/hr 12/08/20 21:00 Chloride IV 12/11/20 21:29 Q24HR@2100 DEREK Nitrofurantoin Macrocrystals 100 mg 12/07/20 20:00 12/08/20 09:29 Nitrofurantoin Monohyd/M-Cryst 100 Mg Cap PO 100 mg Q12H DEREK Administration Sodium Chloride 50 ml 12/07/20 21:00 12/07/20 20:48 Sodium Chloride 0.9% 50 Ml Ivpb IV 12/11/20 21:01 Not Given Q24HR@2100 [facility] Nutrition/Malnutrition Assess - Dietary Evaluation Nutrition/Malnutrition Findings: Nutrition Notes Start: 12/06/20 09:06 Freq: Status: Active Protocol: Document 12/06/20 09:06 ADRYAN (Rec: 12/06/20 09:16 ADRYAN [id number]) Nutrition Notes Need for Assessment generated from: MD Order,sand mixer machine,MST Initial or Follow up Assessment Current Diagnosis Acute Kidney Injury, Respiratory Failure Other Pertinent Diagnosis pneu, acute gastroenteritis Current Diet Regular Labs/Tests 12/05: Na 132 Cr 2 AST 119 ALT 67 Pertinent Medications Decadron Height 6 ft 3 in Weight 133 kg Usual Body Weight 145.45 kg [place] Body Weight (kg) 89.09 BMI 36.6 Intake Prior to Admission Poor Weight change and time frame 8.5% wt loss in 2 weeks Weight Status Morbidly Obese Subjective/Other Information MD order for ONS, RN screen for MST. Pt reports eating poorly for 2 weeks [employer], with not eating anything for the past week. Pt reports feeling better since coming in and ate 100% of dinner last night but unable to eat breakfast this AM. Pt likes the Ensures and is drinking them. Burn Absent Trauma Absent GI Symptoms None Cultural/Ethnic/Scientology Belief No pork or beef Current % PO Poor (25-49%) Minimum of two criteria Yes Energy Intake (severe) < or equal to 50% Estimated Energy Requirement > or equal to 5 days Interpretation of Weight Loss (severe) >5% in 1 month #1 Nutrition Diagnosis Malnutrition Etiology acute illness As Evidenced by Signs and Symptoms <50% EER for > or = to 5 days, >5% wt loss in 1 month Is patient on ventilator? No Is Patient Ambulatory and/or Out of Bed Yes REE-([place]-St. Jeor-ambulatory/OOB) [ 3049.319 NUTR.MSJOOB] Kcal/Kg value to use for calculation 18 Approximate Energy Requirements Using 2394 kcal/Kg Calculation Used for Recommendations Kcal/kg Additional Notes Protein: 140-176g (1.2-1.5g/kg AdjBW: 117kg) Fluid: 1 ml/kcal Nutrition Intervention Change Diet Order: Continue Add Supplement/Snack (indicate name/kcal Ensure Enlive BID /protein ) Provides kCal: 700 Provides Protein (gm) 40 Goal #1 Meet at least 75% of protein and energy needs via PO and ONS Anticipated Discharge Needs: Regular Follow-Up By: 12/09/20 Additional Comments FU for intakes and ONS tolerance
[2020-12-08 15:03] LABS: C-Reactive Protein 8.4 mg/dL (0.00-1.30)
[2020-12-08] MEDS: REMDESIVIR 100 MG in SODIUM CHLORIDE 0.9% 250ML 250 ML IV SCH (21:26)
[2020-12-08] MEDS: SODIUM CHLORIDE 0.9% 50 ML IVPB IV SCH (21:28)
[2020-12-08] MEDS: ENOXAPARIN 40 MG/0.4 ML INJ SUB-Q SCH (21:29)
[2020-12-08] MEDS ORDERED: METOPROLOL TARTRATE 5 MG/5 ML INJ IV ONE (21:37)
[2020-12-09] MEDS: BENZONATATE 100 MG CAP PO SCH ×3 (05:32→21:38)
[2020-12-09 07:57] LABS: Alanine Aminotransferase 56 units/L (7-56); Albumin 3.1 g/dL (3.9-5); BUN/Creatinine Ratio 19; Blood Urea Nitrogen 19 mg/dL (9-20); Calcium 8.8 mg/dL (8.4-10.2); Hemolysis Index 2
[2020-12-09] MEDS: guaiFENesin ER 600 MG TAB PO SCH ×2 (09:41→21:38)
[2020-12-09] MEDS: DEXAMETHASONE 4 MG TAB PO SCH (10:18)
[2020-12-09] MEDS: NITROFURANTOIN MONOHYD/M-CRYST 100 MG CAP PO SCH ×2 (10:19→21:38)
--- NOTE | 2020-12-09 14:08 | Progress Note ---
Assessment and Plan Cultures: Blood culture no growth today SARS CoV2 PCR positive Assessment: 35 years old male with no significant medical history admitted on 12/05/2020 secondary to generalized weakness, nausea, vomiting, diarrhea and subjective fever for 4 days: #Severe sepsis: Present on admission with high fever, tachycardia, hypoxia, likely due to bilateral pneumonia. #Severe COVID pneumonia: Chest x-ray with bibasilar infiltrates. Inflammatory markers elevated. #Acute hypoxemic respiratory failure: O2 sat dropped to 85%. Desats overnight now on 5L. #Elevated LFTs: from COVID #Nausea, vomiting, diarrhea: Likely due to acute COVID-19. Resolved. #UTI: mild pyuria, no LE Recommendations: -Continue dexamethasone 6 mg IV/PO daily for 10 days -Continue Remdesivir for 5 days. D3 of 5 -Monitor inflammatory markers - ferritin, Ddimer, CRP, LDH, ordered today -Monitor liver function test on Remdesivir -Continue anticoagulation per System Protocol -Prone positioning as possible -Macrobid po bid for 5 days for UTI, f/u urine cx G. Candy Snyder MD [facility] O: [phone] F: [phone] Subjective Date of service: 12/09/20 Principal diagnosis: COVID-19 Interval history: Afebrile, normal white count. On 5L NC Objective - Exam Narrative Exam: Physical exam deferred due to PPE conservation strategy. Please refer to primary team's note. - Constitutional Vitals: Vital Signs Temp Pulse Resp BP Pulse Ox 97.0 F L 105 H 20 127/86 91 12/09/20 04:35 12/09/20 04:35 12/09/20 04:35 12/09/20 04:35 12/09/20 04:35 Temperature -Last 24 Hours Temperature 97.0 F Temperature 98.0 F - Labs CBC & Chem 7: 12/07/20 06:13 12/09/20 05:39 Labs: Abnormal lab results 12/08/20 12/08/20 12/08/20 Range/Units 13:43 13:43 13:43 D-Dimer 486.31 H (0-234) ng/mlDDU Glucose (75-100) mg/dL Ferritin 586.6 H (30.0-300.0) ng/mL Alkaline Phosphatase (35-129) units/L Lactate Dehydrogenase 680 H (91-180) units/L C-Reactive Protein 8.40 H (0.00-1.30) mg/dL Total Protein (6.3-8.2) g/dL Albumin (3.9-5) g/dL 12/09/20 Range/Units 05:39 D-Dimer (0-234) ng/mlDDU Glucose 103 H (75-100) mg/dL Ferritin (30.0-300.0) ng/mL Alkaline Phosphatase 30 L (35-129) units/L Lactate Dehydrogenase (91-180) units/L C-Reactive Protein (0.00-1.30) mg/dL Total Protein 6.0 L (6.3-8.2) g/dL Albumin 3.1 L (3.9-5) g/dL
--- NOTE | 2020-12-09 14:20 | Progress Note ---
Assessment and Plan Assessment and plan: 35-year-old -Swiss male with no significant past medical history comes in for nausea vomiting and generalized weakness. Also intermittent shortness of breath and subjective fever. Denies any cough. Patient went to an urgent care facility and had a negative [id number] Covid test, however pt found to have a low oxygen saturation and was sent to the emergency room for evaluation. Patient also has vomiting and diarrhea for the last 3 to 4 days. Currently admitted for positive Covid test during hospital stay, currently on Solu-Medrol and remdesivir, infectious disease following. (1) Acute respiratory failure with hypoxia Current Visit: Yes Status: Acute Plan to address problem: 2/2 covid PNA Supplement O2 continue dexamethasone If no improvement, consider CTA to r/o PE (2) Bilateral pneumonia Current Visit: Yes Status: Acute Plan to address problem: CAP treated, however procal low ceftriaxone and Zithromax DC'd (3) Suspected COVID-19 virus infection Current Visit: Yes Status: Acute Plan to address problem: Coronavirus PCR positive ID consulted Dexamethasone and remdesevir (4) TIESHA (acute kidney injury) Current Visit: Yes Status: Acute Plan to address problem: Improved with fluids Vasomotor nephropathy resolved (5) Acute gastroenteritis Current Visit: Yes Status: Acute Plan to address problem: Possible secondary to Covid resolved (6) Transaminitis Current Visit: Yes Status: Acute Plan to address problem: Elevated LFTs possible secondary to Covid Continue to monitor (7) Hyponatremia Current Visit: Yes Status: Acute Plan to address problem: resolved w/fluids (8) DVT prophylaxis Current Visit: Yes Status: Acute Plan to address problem: Lovenox 30 mg subcu daily and GI prophylaxis DISPOSITION: continue treatment COVID+, continue O2 supplementation, wean as tolerated History Interval history: 12/06: pt continues to have SOB w/exertion, no diarrhea however decreased PO intake. COVID PCR+, infectious disease consulted. 12/07: pt without diarrhea, tolerating diet. on 4L NC O2, continues to have SOB 12/08 pt seen, no distress, on 4L O2. spoke with nurse to walk pt w/o O2, remdesivir started. pt states he's feeling better, would like to be weaned off O2 12/09 patient seen, on 5 L of oxygen. Spoke with respiratory, attempt to wean patient down. Patient has pending ambulatory oxygen study. Hospitalist Physical - Physical exam Narrative exam: General appearance: Present: no acute distress, well-nourished EENT: PERRL, EOM intact, hearing intact, clear oral mucosa, dentition normal Neck: Present: supple, normal ROM Respiratory: 4L NC O2, bilateral CTA, negative: rales, rhonchi, wheezing, no acute distress Cardiovascular: Rhythm: regular Heart Sounds: Present: S1 & S2. Absent: gallop, rub Extremities: no ischemia, No edema, normal temperature, normal color, Full ROM Abdominal: soft, non-tender, non-distended, normal bowel sounds Integumentary: Present: clear, warm, dry Psychiatric: appropriate mood/affect, intact judgment & insight Neurologic: CNII-XII intact, moves all extremities - Constitutional Vitals: Temp Pulse Resp BP Pulse Ox 97.0 F L 105 H 20 127/86 91 12/09/20 04:35 12/09/20 04:35 12/09/20 04:35 12/09/20 04:35 12/09/20 04:35 General appearance: Present: no acute distress, well-nourished Results - Labs CBC & Chem 7: 12/07/20 06:13 12/09/20 05:39 Labs: Laboratory Last Values WBC 9.8 K/mm3 (4.5-11.0) 12/07/20 06:13 RBC 5.02 M/mm3 (3.65-5.03) 12/07/20 06:13 Hgb 14.6 gm/dl (11.8-15.2) 12/07/20 06:13 Hct 43.6 % (35.5-45.6) 12/07/20 06:13 MCV 87 fl (84-94) 12/07/20 06:13 MCH 29 pg (28-32) 12/07/20 06:13 MCHC 33 % (32-34) 12/07/20 06:13 RDW 14.4 % (13.2-15.2) 12/07/20 06:13 Plt Count 340 K/mm3 (140-440) 12/07/20 06:13 Lymph % (Auto) 24.4 % (13.4-35.0) 12/05/20 12:03 [place] % (Auto) 4.3 % (0.0-7.3) 12/05/20 12:03 Eos % (Auto) 0.0 % (0.0-4.3) 12/05/20 12:03 Baso % (Auto) 1.5 % (0.0-1.8) 12/05/20 12:03 Lymph # (Auto) 1.3 K/mm3 (1.2-5.4) 12/05/20 12:03 [place] # (Auto) 0.2 K/mm3 (0.0-0.8) 12/05/20 12:03 Eos # (Auto) 0.0 K/mm3 (0.0-0.4) 12/05/20 12:03 Baso # (Auto) 0.1 K/mm3 (0.0-0.1) 12/05/20 12:03 Seg Neutrophils % 69.8 % (40.0-70.0) 12/05/20 12:03 Seg Neutrophils # 3.9 K/mm3 (1.8-7.7) 12/05/20 12:03 PT 12.4 Sec. (12.2-14.9) 12/05/20 12:03 INR 0.94 (0.87-1.13) 12/05/20 12:03 D-Dimer 486.31 ng/mlDDU (0-234) H 12/08/20 13:43 VBG pH 7.386 (7.320-7.420) 12/05/20 12:03 Sodium 138 mmol/L (137-145) 12/09/20 05:39 Potassium 4.6 mmol/L (3.6-5.0) 12/09/20 05:39 Chloride 101.3 mmol/L (98-107) 12/09/20 05:39 Carbon Dioxide 28 mmol/L (22-30) 12/09/20 05:39 Anion Gap 13 mmol/L 12/09/20 05:39 BUN 19 mg/dL (9-20) 12/09/20 05:39 Creatinine 1.0 mg/dL (0.8-1.3) 12/09/20 05:39 Estimated GFR > 60 ml/min 12/09/20 05:39 BUN/Creatinine Ratio 19 % 12/09/20 05:39 Glucose 103 mg/dL (75-100) H 12/09/20 05:39 Lactic Acid 1.60 mmol/L (0.7-2.0) 12/05/20 14:50 Calcium 8.8 mg/dL (8.4-10.2) 12/09/20 05:39 Ferritin 586.6 ng/mL (30.0-300.0) H 12/08/20 13:43 Total Bilirubin 0.40 mg/dL (0.1-1.2) 12/09/20 05:39 AST 31 units/L (5-40) 12/09/20 05:39 ALT 56 units/L (7-56) 12/09/20 05:39 Alkaline Phosphatase 30 units/L (35-129) L 12/09/20 05:39 Lactate Dehydrogenase 680 units/L (91-180) H 12/08/20 13:43 C-Reactive Protein 8.40 mg/dL (0.00-1.30) H 12/08/20 13:43 NT-Pro-B Natriuret Pep 9.40 pg/mL (0-450) 12/05/20 12:03 Total Protein 6.0 g/dL (6.3-8.2) L 12/09/20 05:39 Albumin 3.1 g/dL (3.9-5) L 12/09/20 05:39 Albumin/Globulin Ratio 1.1 % 12/09/20 05:39 Procalcitonin 0.07 ng/mL (<0.15) 12/07/20 06:13 Urine Color Zuleima (Yellow) 12/05/20 15:41 Urine Turbidity Slightly-cloudy (Clear) 12/05/20 15:41 Urine pH 5.0 (5.0-7.0) 12/05/20 15:41 Ur Specific [employer] 1.023 (1.003-1.030) 12/05/20 15:41 Urine Protein 100 mg/dl mg/dL (Negative) 12/05/20 15:41 Urine Glucose (UA) Neg mg/dL (Negative) 12/05/20 15:41 Urine Ketones 20 mg/dL (Negative) 12/05/20 15:41 Urine Blood Lg (Negative) 12/05/20 15:41 Urine Nitrite Neg (Negative) 12/05/20 15:41 Urine Bilirubin Neg (Negative) 12/05/20 15:41 Urine Urobilinogen < 2.0 mg/dL (<2.0) 12/05/20 15:41 Ur Leukocyte Esterase Neg (Negative) 12/05/20 15:41 Urine WBC (Auto) 18.0 /HPF (0.0-6.0) H 12/05/20 15:41 Urine RBC (Auto) 2.0 /HPF (0.0-6.0) 12/05/20 15:41 U Epithel Cells (Auto) < 1.0 /HPF (0-13.0) 12/05/20 15:41 Urine Mucus 1+ /HPF 12/05/20 15:41 Coronavirus (PCR) Positive (Negative) A 12/06/20 Unknown Microbiology: Microbiology 12/05/20 12:03 Peripheral/Venous Blood Culture - Preliminary NO GROWTH AFTER 4 DAYS 12/05/20 12:03 Peripheral/Venous Blood Culture - Preliminary NO GROWTH AFTER 4 DAYS 12/05/20 15:41 Urine,Clean Catch Urine Culture - Preliminary NO GROWTH AFTER 24 HOURS Art/IV: Voiding Method Toilet Active Medications - Current Medications Current Medications: Generic Name Dose Route Start Last Admin Trade Name Freq PRN Reason Stop Dose Admin Acetaminophen 650 mg 12/05/20 23:16 12/07/20 22:17 Acetaminophen 325 Mg Tab PO 650 mg Q6H PRN Administration Pain, Mild (1-3) Benzonatate 100 mg 12/07/20 22:00 12/09/20 05:32 Benzonatate 100 Mg Cap PO 12/12/20 21:59 100 mg Q8HR DEREK Administration Dexamethasone 6 mg 12/09/20 10:00 12/09/20 10:18 Dexamethasone 4 Mg Tab PO 12/14/20 12:00 6 mg DAILY DEREK Administration Enoxaparin Sodium 40 mg 12/06/20 22:00 12/08/20 21:29 Enoxaparin 40 Mg/0.4 Ml Inj SUB-Q 40 mg QDAY@2200 DEREK Administration Protocol Guaifenesin 600 mg 12/07/20 22:00 12/09/20 09:41 Guaifenesin Er 600 Mg Tab PO 600 mg BID DEREK Administration REMDESIVIR 100 mg/ Sodium 250 mls @ 500 mls/hr 12/08/20 21:00 12/08/20 21:26 Chloride IV 12/11/20 21:29 500 mls/hr Q24HR@2100 DEREK Administration Nitrofurantoin Macrocrystals 100 mg 12/07/20 20:00 12/09/20 10:19 Nitrofurantoin Monohyd/M-Cryst 100 Mg Cap PO 12/12/20 08:01 100 mg Q12H DEREK Administration Sodium Chloride 50 ml 12/07/20 21:00 12/08/20 21:28 Sodium Chloride 0.9% 50 Ml Ivpb IV 12/11/20 21:01 50 ml Q24HR@2100 DEREK Administration Nutrition/Malnutrition Assess - Dietary Evaluation Nutrition/Malnutrition Findings: Nutrition Notes Start: 12/06/20 09:06 Freq: Status: Active Protocol: Document 12/06/20 09:06 ADRYAN (Rec: 12/06/20 09:16 ADRYAN [id number]) Nutrition Notes 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 Pt reports feeling better since coming in and ate 100% of dinner last night but unable to eat breakfast this AM. Pt likes the Ensures and is drinking them. Burn Absent Trauma Absent GI Symptoms None Cultural/Ethnic/[employer]ism Belief No pork or beef Current % PO Poor (25-49%) Minimum of two criteria Yes Energy Intake (severe) < or equal to 50% Estimated Energy Requirement > or equal to 5 days Interpretation of Weight Loss (severe) >5% in 1 month #1 Nutrition Diagnosis Malnutrition Etiology acute illness As Evidenced by Signs and Symptoms <50% EER for > or = to 5 days, >5% wt loss in 1 month Is patient on ventilator? No Is Patient Ambulatory and/or Out of Bed Yes REE-([place]-[facility] [facility]-ambulatory/OOB) [ 3049.319 NUTR.MSJOOB] Kcal/Kg value to use for calculation 18 Approximate Energy Requirements Using 2394 kcal/Kg Calculation Used for Recommendations Kcal/kg Additional Notes Protein: 140-176g (1.2-1.5g/kg AdjBW: 117kg) Fluid: 1 ml/kcal Nutrition Intervention Change Diet Order: Continue Add Supplement/Snack (indicate name/kcal Ensure Enlive BID /protein ) Provides kCal: 700 Provides Protein (gm) 40 Goal #1 Meet at least 75% of protein and energy needs via PO and ONS Anticipated Discharge Needs: Regular Follow-Up By: 12/09/20 Additional Comments FU for intakes and ONS tolerance
--- NOTE | 2020-12-09 21:05 | Event Note ---
Date: 12/09/20 Valsartan and Lopressor added for high blood pressure Also IV labetalol as as needed medicine 10 mg every 3 as needed for blood pressure more than 160/100
[2020-12-09] MEDS: METOPROLOL TARTRATE 25 MG TAB PO SCH (21:38)
[2020-12-09] MEDS: ENOXAPARIN 40 MG/0.4 ML INJ SUB-Q SCH (21:38)
[2020-12-09] MEDS: VALSARTAN 40 MG TAB PO SCH (21:39)
[2020-12-09] MEDS: SODIUM CHLORIDE 0.9% 50 ML IVPB IV SCH (21:40)
[2020-12-09] MEDS: REMDESIVIR 100 MG in SODIUM CHLORIDE 0.9% 250ML 250 ML IV SCH (21:40)
[2020-12-10] MEDS: BENZONATATE 100 MG CAP PO SCH ×3 (06:19→21:09)
[2020-12-10] MEDS: NITROFURANTOIN MONOHYD/M-CRYST 100 MG CAP PO SCH ×2 (08:56→21:08)
[2020-12-10] MEDS: METOPROLOL TARTRATE 25 MG TAB PO SCH ×2 (09:19→21:09)
[2020-12-10] MEDS: DEXAMETHASONE 4 MG TAB PO SCH (09:19)
[2020-12-10] MEDS: guaiFENesin ER 600 MG TAB PO SCH ×2 (09:20→21:08)
[2020-12-10] MEDS: VALSARTAN 40 MG TAB PO SCH ×2 (09:21→21:08)
--- NOTE | 2020-12-10 09:48 | Progress Note ---
Assessment and Plan Assessment and plan: 35-year-old -[place]ogol[place] male with no significant past medical history comes in for nausea vomiting and generalized weakness. Also intermittent shortness of breath and subjective fever. Denies any cough. Patient went to an urgent care facility and had a negative [id number] Covid test, however pt found to have a low oxygen saturation and was sent to the emergency room for evaluation. Patient also has vomiting and diarrhea for the last 3 to 4 days. Currently admitted for positive Covid test during hospital stay, currently on Solu-Medrol and remdesivir, infectious disease following. Acute hypoxic respiratory failure COVID-19 pneumonia Bilateral pneumonia Acute kidney injury Sepsis Acute gastroenteritis Transaminitis Hyponatremia 12/06: pt continues to have SOB w/exertion, no diarrhea however decreased PO intake. COVID PCR+, infectious disease consulted. 12/07: pt without diarrhea, tolerating diet. on 4L NC O2, continues to have SOB 12/08 pt seen, no distress, on 4L O2. spoke with nurse to walk pt w/o O2, remdesivir started. pt states he's feeling better, would like to be weaned off O2 12/09 patient seen, on 5 L of oxygen. Spoke with respiratory, attempt to wean patient down. Patient has pending ambulatory oxygen study. 12/10. Patient still requiring 5 L of oxygen via nasal cannula. Check exercise pulse oximetry for further evaluation. Continue dexamethasone and remdesivir. Continue to trend inflammatory markers of ferritin, D-dimer, CRP and LDH. Prone positioning as possible. Continue Macrobid for UTI. Urine culture negative x24 hours History Interval history: No new issues overnight. Hospitalist Physical - Constitutional Vitals: Temp Pulse Resp BP Pulse Ox 99.3 F 93 H 22 149/109 93 12/10/20 09:16 12/10/20 09:16 12/10/20 09:16 12/10/20 09:16 12/10/20 09:33 General appearance: Present: no acute distress, well-nourished - EENT Eyes: Present: PERRL, EOM intact ENT: hearing intact, clear oral mucosa, dentition normal - Neck Neck: Present: supple, normal ROM - Respiratory Respiratory effort: normal Respiratory: bilateral: CTA - Cardiovascular Rhythm: regular Heart Sounds: Present: S1 & S2. Absent: gallop, rub - Extremities Extremities: no ischemia, No edema, Full ROM - Abdominal General gastrointestinal: soft, non-tender, non-distended, normal bowel sounds - Integumentary Integumentary: Present: clear, warm, dry - Neurologic Neurologic: CNII-XII intact, moves all extremities Results - Labs CBC & Chem 7: 12/07/20 06:13 12/09/20 05:39 Labs: Laboratory Last Values WBC 9.8 K/mm3 (4.5-11.0) 12/07/20 06:13 RBC 5.02 M/mm3 (3.65-5.03) 12/07/20 06:13 Hgb 14.6 gm/dl (11.8-15.2) 12/07/20 06:13 Hct 43.6 % (35.5-45.6) 12/07/20 06:13 MCV 87 fl (84-94) 12/07/20 06:13 MCH 29 pg (28-32) 12/07/20 06:13 MCHC 33 % (32-34) 12/07/20 06:13 RDW 14.4 % (13.2-15.2) 12/07/20 06:13 Plt Count 340 K/mm3 (140-440) 12/07/20 06:13 Lymph % (Auto) 24.4 % (13.4-35.0) 12/05/20 12:03 [place] % (Auto) 4.3 % (0.0-7.3) 12/05/20 12:03 Eos % (Auto) 0.0 % (0.0-4.3) 12/05/20 12:03 Baso % (Auto) 1.5 % (0.0-1.8) 12/05/20 12:03 Lymph # (Auto) 1.3 K/mm3 (1.2-5.4) 12/05/20 12:03 [place] # (Auto) 0.2 K/mm3 (0.0-0.8) 12/05/20 12:03 Eos # (Auto) 0.0 K/mm3 (0.0-0.4) 12/05/20 12:03 Baso # (Auto) 0.1 K/mm3 (0.0-0.1) 12/05/20 12:03 Seg Neutrophils % 69.8 % (40.0-70.0) 12/05/20 12:03 Seg Neutrophils # 3.9 K/mm3 (1.8-7.7) 12/05/20 12:03 PT 12.4 Sec. (12.2-14.9) 12/05/20 12:03 INR 0.94 (0.87-1.13) 12/05/20 12:03 D-Dimer 486.31 ng/mlDDU (0-234) H 12/08/20 13:43 VBG pH 7.386 (7.320-7.420) 12/05/20 12:03 Sodium 138 mmol/L (137-145) 12/09/20 05:39 Potassium 4.6 mmol/L (3.6-5.0) 12/09/20 05:39 Chloride 101.3 mmol/L (98-107) 12/09/20 05:39 Carbon Dioxide 28 mmol/L (22-30) 12/09/20 05:39 Anion Gap 13 mmol/L 12/09/20 05:39 BUN 19 mg/dL (9-20) 12/09/20 05:39 Creatinine 1.0 mg/dL (0.8-1.3) 12/09/20 05:39 Estimated GFR > 60 ml/min 12/09/20 05:39 BUN/Creatinine Ratio 19 % 12/09/20 05:39 Glucose 103 mg/dL (75-100) H 12/09/20 05:39 Lactic Acid 1.60 mmol/L (0.7-2.0) 12/05/20 14:50 Calcium 8.8 mg/dL (8.4-10.2) 12/09/20 05:39 Ferritin 586.6 ng/mL (30.0-300.0) H 12/08/20 13:43 Total Bilirubin 0.40 mg/dL (0.1-1.2) 12/09/20 05:39 AST 31 units/L (5-40) 12/09/20 05:39 ALT 56 units/L (7-56) 12/09/20 05:39 Alkaline Phosphatase 30 units/L (35-129) L 12/09/20 05:39 Lactate Dehydrogenase 680 units/L (91-180) H 12/08/20 13:43 C-Reactive Protein 8.40 mg/dL (0.00-1.30) H 12/08/20 13:43 NT-Pro-B Natriuret Pep 9.40 pg/mL (0-450) 12/05/20 12:03 Total Protein 6.0 g/dL (6.3-8.2) L 12/09/20 05:39 Albumin 3.1 g/dL (3.9-5) L 12/09/20 05:39 Albumin/Globulin Ratio 1.1 % 12/09/20 05:39 Procalcitonin 0.07 ng/mL (<0.15) 12/07/20 06:13 Urine Color Zuleima (Yellow) 12/05/20 15:41 Urine Turbidity Slightly-cloudy (Clear) 12/05/20 15:41 Urine pH 5.0 (5.0-7.0) 12/05/20 15:41 Ur Specific [place] 1.023 (1.003-1.030) 12/05/20 15:41 Urine Protein 100 mg/dl mg/dL (Negative) 12/05/20 15:41 Urine Glucose (UA) Neg mg/dL (Negative) 12/05/20 15:41 Urine Ketones 20 mg/dL (Negative) 12/05/20 15:41 Urine Blood Lg (Negative) 12/05/20 15:41 Urine Nitrite Neg (Negative) 12/05/20 15:41 Urine Bilirubin Neg (Negative) 12/05/20 15:41 Urine Urobilinogen < 2.0 mg/dL (<2.0) 12/05/20 15:41 Ur Leukocyte Esterase Neg (Negative) 12/05/20 15:41 Urine WBC (Auto) 18.0 /HPF (0.0-6.0) H 12/05/20 15:41 Urine RBC (Auto) 2.0 /HPF (0.0-6.0) 12/05/20 15:41 U Epithel Cells (Auto) < 1.0 /HPF (0-13.0) 12/05/20 15:41 Urine Mucus 1+ /HPF 12/05/20 15:41 Coronavirus (PCR) Positive (Negative) A 12/06/20 Unknown Microbiology: Microbiology 12/05/20 12:03 Peripheral/Venous Blood Culture - Preliminary NO GROWTH AFTER 4 DAYS 12/05/20 12:03 Peripheral/Venous Blood Culture - Preliminary NO GROWTH AFTER 4 DAYS Art/IV: Voiding Method Toilet Active Medications - Current Medications Current Medications: Generic Name Dose Route Start Last Admin Trade Name Freq PRN Reason Stop Dose Admin Acetaminophen 650 mg 12/05/20 23:16 12/07/20 22:17 Acetaminophen 325 Mg Tab PO 650 mg Q6H PRN Administration Pain, Mild (1-3) Benzonatate 100 mg 12/07/20 22:00 12/10/20 06:19 Benzonatate 100 Mg Cap PO 12/12/20 21:59 100 mg Q8HR DEREK Administration Dexamethasone 6 mg 12/09/20 10:00 12/10/20 09:19 Dexamethasone 4 Mg Tab PO 12/14/20 12:00 6 mg DAILY DEREK Administration Enoxaparin Sodium 40 mg 12/06/20 22:00 12/09/20 21:38 Enoxaparin 40 Mg/0.4 Ml Inj SUB-Q 40 mg QDAY@2200 DEREK Administration Protocol Guaifenesin 600 mg 12/07/20 22:00 12/10/20 09:20 Guaifenesin Er 600 Mg Tab PO 600 mg BID DEREK Administration REMDESIVIR 100 mg/ Sodium 250 mls @ 500 mls/hr 12/08/20 21:00 12/09/20 21:40 Chloride IV 12/11/20 21:29 500 mls/hr Q24HR@2100 DEREK Administration Labetalol HCl 10 mg 12/09/20 21:00 12/10/20 09:20 Labetalol 20 Mg/4 Ml Inj IV 10 mg Q3H DEREK Administration Metoprolol Tartrate 25 mg 12/09/20 22:00 12/10/20 09:19 Metoprolol Tartrate 25 Mg Tab PO 25 mg BID DEREK Administration Nitrofurantoin Macrocrystals 100 mg 12/07/20 20:00 12/10/20 08:56 Nitrofurantoin Monohyd/M-Cryst 100 Mg Cap PO 12/12/20 08:01 100 mg Q12H DEREK Administration Sodium Chloride 50 ml 12/07/20 21:00 12/09/20 21:40 Sodium Chloride 0.9% 50 Ml Ivpb IV 12/11/20 21:01 50 ml Q24HR@2100 DEREK Administration Valsartan 80 mg 12/09/20 22:00 12/10/20 09:21 Valsartan 40 Mg Tab PO 80 mg Q12HR DEREK Administration Nutrition/Malnutrition Assess - Dietary Evaluation Nutrition/Malnutrition Findings: Nutrition Notes Start: 12/06/20 09:06 Freq: Status: Active Protocol: Document 12/09/20 14:17 CW (Rec: 12/09/20 14:28 CW [email or web address]) Nutrition Notes Initial or Follow up Reassessment Current Diagnosis Acute Kidney Injury, Respiratory Failure Other Pertinent Diagnosis pneu, acute gastroenteritis Current Diet Regular Labs/Tests reviewed Pertinent Medications Decadron Height 6 ft 3 in Weight 133 kg [place] Body Weight (kg) 89.09 BMI 36.6 Weight Status Morbidly Obese Subjective/Other Information F/U for intakes and ONS. Pt reports eating 50% of breakfast and is currently eating his lunch. Pt reports drinking ensures. Percent of energy/protein needs met: 77%/61% Burn Absent Trauma Absent GI Symptoms None Cultural/Ethnic/Adventism Belief No pork or beef Current % PO Fair (50-74%) Minimum of two criteria Yes Energy Intake (severe) < or equal to 50% Estimated Energy Requirement > or equal to 5 days Interpretation of Weight Loss (severe) >5% in 1 month #1 Nutrition Diagnosis Malnutrition Diagnosis Progress(for reassessment Continues documentation) Is patient on ventilator? No Is Patient Ambulatory and/or Out of Bed Yes REE-([facility]-ambulatory/OOB) [ 3049.319 NUTR.MSJOOB] Kcal/Kg value to use for calculation 18 Approximate Energy Requirements Using 2394 kcal/Kg Calculation Used for Recommendations Kcal/kg Additional Notes Protein: 140-176g (1.2-1.5g/kg AdjBW: 117kg) Fluid: 1 ml/kcal Nutrition Intervention Change Diet Order: Continue Add Supplement/Snack (indicate name/kcal Ensure Enlive BID /protein ) Provides kCal: 700 Provides Protein (gm) 40 Goal #1 Meet at least 75% of protein and energy needs via PO and ONS Anticipated Discharge Needs: Regular Follow-Up By: 12/12/20 Additional Comments F/U for intakes and ONS tolerance
[2020-12-10 10:14] LABS: Alanine Aminotransferase 56 units/L (7-56); Albumin 2.9 g/dL (3.9-5); BUN/Creatinine Ratio 19; Blood Urea Nitrogen 19 mg/dL (9-20); Calcium 8.9 mg/dL (8.4-10.2); Hemolysis Index 1
--- NOTE | 2020-12-10 11:54 | Progress Note ---
Assessment and Plan Cultures: Blood culture no growth today SARS CoV2 PCR positive Assessment: 35 years old male with no significant medical history admitted on 12/05/2020 secondary to generalized weakness, nausea, vomiting, diarrhea and subjective fever for 4 days: #Severe sepsis: Present on admission with high fever, tachycardia, hypoxia, likely due to bilateral pneumonia. #Severe COVID pneumonia: Chest x-ray with bibasilar infiltrates. Inflammatory markers elevated. #Acute hypoxemic respiratory failure: O2 sat dropped to 85%. Desats overnight now on 5L. #Elevated LFTs: from COVID #Nausea, vomiting, diarrhea: Likely due to acute COVID-19. Resolved. #UTI: mild pyuria, no LE Recommendations: -Continue dexamethasone 6 mg IV/PO daily for 10 days -Continue Remdesivir for 5 days. D4 of 5 -Monitor inflammatory markers - ferritin, Ddimer, CRP, LDH, ordered today -Monitor liver function test on Remdesivir -Continue anticoagulation per System Protocol -Prone positioning as possible -Macrobid po bid for 5 days for UTI, f/u urine cx G. Candy Snyder MD [facility] O: [phone] F: [phone] Subjective Date of service: 12/10/20 Principal diagnosis: COVID-19 Interval history: Afebrile, no acute change. Currently on 5 L nasal cannula. Objective - Exam Narrative Exam: Physical exam deferred due to PPE conservation strategy. Please refer to primary team's note. - Constitutional Vitals: Vital Signs Temp Pulse Resp BP Pulse Ox 99.3 F 93 H 22 149/109 93 12/10/20 09:16 12/10/20 09:16 12/10/20 09:16 12/10/20 09:16 12/10/20 09:33 Temperature -Last 24 Hours Temperature 99.3 F Temperature 98.4 F Temperature 97.6 F Temperature 98.0 F - Labs CBC & Chem 7: 12/07/20 06:13 12/10/20 07:33 Labs: Abnormal lab results 12/10/20 Range/Units 07:33 Alkaline Phosphatase 27 L (35-129) units/L Total Protein 5.9 L (6.3-8.2) g/dL Albumin 2.9 L (3.9-5) g/dL
[2020-12-10] MEDS: NIFEdipine XL 30 MG TAB PO SCH ×2 (14:27→21:11)
[2020-12-10] MEDS: ENOXAPARIN 40 MG/0.4 ML INJ SUB-Q SCH (21:09)
[2020-12-10] MEDS: REMDESIVIR 100 MG in SODIUM CHLORIDE 0.9% 250ML 250 ML IV SCH (21:35)
[2020-12-10] MEDS: SODIUM CHLORIDE 0.9% 50 ML IVPB IV SCH (21:35)
[2020-12-11] MEDS: BENZONATATE 100 MG CAP PO SCH ×3 (05:04→21:46)
--- NOTE | 2020-12-11 09:12 | Progress Note ---
Assessment and Plan Assessment and plan: 35-year-old -[place] male with no significant past medical history comes in for nausea vomiting and generalized weakness. Also intermittent shortness of breath and subjective fever. Denies any cough. Patient went to an urgent care facility and had a negative [id number] Covid test, however pt found to have a low oxygen saturation and was sent to the emergency room for evaluation. Patient also has vomiting and diarrhea for the last 3 to 4 days. Currently admitted for positive Covid test during hospital stay, currently on Solu-Medrol and remdesivir, infectious disease following. Acute hypoxic respiratory failure COVID-19 pneumonia Bilateral pneumonia Acute kidney injury Sepsis Acute gastroenteritis Transaminitis Hyponatremia 12/06: pt continues to have SOB w/exertion, no diarrhea however decreased PO intake. COVID PCR+, infectious disease consulted. 12/07: pt without diarrhea, tolerating diet. on 4L NC O2, continues to have SOB 12/08 pt seen, no distress, on 4L O2. spoke with nurse to walk pt w/o O2, remdesivir started. pt states he's feeling better, would like to be weaned off O2 12/09 patient seen, on 5 L of oxygen. Spoke with respiratory, attempt to wean patient down. Patient has pending ambulatory oxygen study. 12/10. Patient still requiring 5 L of oxygen via nasal cannula. Check exercise pulse oximetry for further evaluation. Continue dexamethasone and remdesivir. Continue to trend inflammatory markers of ferritin, D-dimer, CRP and LDH. Prone positioning as possible. Continue Macrobid for UTI. Urine culture negative x24 hours 12/11. Patient still requiring 5 L of oxygen via nasal cannula. Check exercise pulse oximetry for further evaluation. Continue dexamethasone and remdesivir. Continue to trend inflammatory markers of ferritin, D-dimer, CRP and LDH. Prone positioning as possible. Continue Macrobid for UTI. Blood cultures remain negative. History Interval history: No new issues overnight. Hospitalist Physical - Constitutional Vitals: Temp Pulse Resp BP Pulse Ox 97.8 F 94 H 27 H 103/69 92 12/11/20 04:53 12/11/20 04:53 12/11/20 04:53 12/11/20 04:53 12/11/20 09:00 General appearance: Present: no acute distress, well-nourished - EENT Eyes: Present: PERRL, EOM intact ENT: hearing intact, clear oral mucosa, dentition normal - Neck Neck: Present: supple, normal ROM - Respiratory Respiratory effort: normal Respiratory: bilateral: CTA - Cardiovascular Rhythm: regular Heart Sounds: Present: S1 & S2. Absent: gallop, rub - Extremities Extremities: no ischemia, No edema, Full ROM - Abdominal General gastrointestinal: soft, non-tender, non-distended, normal bowel sounds - Integumentary Integumentary: Present: clear, warm, dry - Neurologic Neurologic: CNII-XII intact, moves all extremities Results - Labs CBC & Chem 7: 12/07/20 06:13 12/10/20 07:33 Labs: Laboratory Last Values WBC 9.8 K/mm3 (4.5-11.0) 12/07/20 06:13 RBC 5.02 M/mm3 (3.65-5.03) 12/07/20 06:13 Hgb 14.6 gm/dl (11.8-15.2) 12/07/20 06:13 Hct 43.6 % (35.5-45.6) 12/07/20 06:13 MCV 87 fl (84-94) 12/07/20 06:13 MCH 29 pg (28-32) 12/07/20 06:13 MCHC 33 % (32-34) 12/07/20 06:13 RDW 14.4 % (13.2-15.2) 12/07/20 06:13 Plt Count 340 K/mm3 (140-440) 12/07/20 06:13 Lymph % (Auto) 24.4 % (13.4-35.0) 12/05/20 12:03 [place] % (Auto) 4.3 % (0.0-7.3) 12/05/20 12:03 Eos % (Auto) 0.0 % (0.0-4.3) 12/05/20 12:03 Baso % (Auto) 1.5 % (0.0-1.8) 12/05/20 12:03 Lymph # (Auto) 1.3 K/mm3 (1.2-5.4) 12/05/20 12:03 [place] # (Auto) 0.2 K/mm3 (0.0-0.8) 12/05/20 12:03 Eos # (Auto) 0.0 K/mm3 (0.0-0.4) 12/05/20 12:03 Baso # (Auto) 0.1 K/mm3 (0.0-0.1) 12/05/20 12:03 Seg Neutrophils % 69.8 % (40.0-70.0) 12/05/20 12:03 Seg Neutrophils # 3.9 K/mm3 (1.8-7.7) 12/05/20 12:03 PT 12.4 Sec. (12.2-14.9) 12/05/20 12:03 INR 0.94 (0.87-1.13) 12/05/20 12:03 D-Dimer 486.31 ng/mlDDU (0-234) H 12/08/20 13:43 VBG pH 7.386 (7.320-7.420) 12/05/20 12:03 Sodium 138 mmol/L (137-145) 12/10/20 07:33 Potassium 4.5 mmol/L (3.6-5.0) 12/10/20 07:33 Chloride 101.0 mmol/L (98-107) 12/10/20 07:33 Carbon Dioxide 27 mmol/L (22-30) 12/10/20 07:33 Anion Gap 15 mmol/L 12/10/20 07:33 BUN 19 mg/dL (9-20) 12/10/20 07:33 Creatinine 1.0 mg/dL (0.8-1.3) 12/10/20 07:33 Estimated GFR > 60 ml/min 12/10/20 07:33 BUN/Creatinine Ratio 19 % 12/10/20 07:33 Glucose 98 mg/dL (75-100) 12/10/20 07:33 Lactic Acid 1.60 mmol/L (0.7-2.0) 12/05/20 14:50 Calcium 8.9 mg/dL (8.4-10.2) 12/10/20 07:33 Ferritin 586.6 ng/mL (30.0-300.0) H 12/08/20 13:43 Total Bilirubin 0.40 mg/dL (0.1-1.2) 12/10/20 07:33 AST 29 units/L (5-40) 12/10/20 07:33 ALT 56 units/L (7-56) 12/10/20 07:33 Alkaline Phosphatase 27 units/L (35-129) L 12/10/20 07:33 Lactate Dehydrogenase 680 units/L (91-180) H 12/08/20 13:43 C-Reactive Protein 8.40 mg/dL (0.00-1.30) H 12/08/20 13:43 NT-Pro-B Natriuret Pep 9.40 pg/mL (0-450) 12/05/20 12:03 Total Protein 5.9 g/dL (6.3-8.2) L 12/10/20 07:33 Albumin 2.9 g/dL (3.9-5) L 12/10/20 07:33 Albumin/Globulin Ratio 1.0 % 12/10/20 07:33 Procalcitonin 0.07 ng/mL (<0.15) 12/07/20 06:13 Urine Color [place] (Yellow) 12/05/20 15:41 Urine Turbidity Slightly-cloudy (Clear) 12/05/20 15:41 Urine pH 5.0 (5.0-7.0) 12/05/20 15:41 Ur Specific [place] 1.023 (1.003-1.030) 12/05/20 15:41 Urine Protein 100 mg/dl mg/dL (Negative) 12/05/20 15:41 Urine Glucose (UA) Neg mg/dL (Negative) 12/05/20 15:41 Urine Ketones 20 mg/dL (Negative) 12/05/20 15:41 Urine Blood Lg (Negative) 12/05/20 15:41 Urine Nitrite Neg (Negative) 12/05/20 15:41 Urine Bilirubin Neg (Negative) 12/05/20 15:41 Urine Urobilinogen < 2.0 mg/dL (<2.0) 12/05/20 15:41 Ur Leukocyte Esterase Neg (Negative) 12/05/20 15:41 Urine WBC (Auto) 18.0 /HPF (0.0-6.0) H 12/05/20 15:41 Urine RBC (Auto) 2.0 /HPF (0.0-6.0) 12/05/20 15:41 U Epithel Cells (Auto) < 1.0 /HPF (0-13.0) 12/05/20 15:41 Urine Mucus 1+ /HPF 12/05/20 15:41 Coronavirus (PCR) Positive (Negative) A 12/06/20 Unknown Microbiology: Microbiology 12/05/20 15:41 Urine,Clean Catch Urine Culture - Final NO GROWTH AFTER 48 HOURS 12/05/20 12:03 Peripheral/Venous Blood Culture - Final NO GROWTH AFTER 5 DAYS 12/05/20 12:03 Peripheral/Venous Blood Culture - Final NO GROWTH AFTER 5 DAYS Art/IV: Voiding Method Toilet Active Medications - Current Medications Current Medications: Generic Name Dose Route Start Last Admin Trade Name Freq PRN Reason Stop Dose Admin Acetaminophen 650 mg 12/05/20 23:16 12/07/20 22:17 Acetaminophen 325 Mg Tab PO 650 mg Q6H PRN Administration Pain, Mild (1-3) Benzonatate 100 mg 12/07/20 22:00 12/11/20 05:04 Benzonatate 100 Mg Cap PO 12/12/20 21:59 100 mg Q8HR DEREK Administration Dexamethasone 6 mg 12/09/20 10:00 12/10/20 09:19 Dexamethasone 4 Mg Tab PO 12/14/20 12:00 6 mg DAILY DEREK Administration Enoxaparin Sodium 40 mg 12/06/20 22:00 12/10/20 21:09 Enoxaparin 40 Mg/0.4 Ml Inj SUB-Q 40 mg QDAY@2200 DEREK Administration Protocol Guaifenesin 600 mg 12/07/20 22:00 12/10/20 21:08 Guaifenesin Er 600 Mg Tab PO 600 mg BID DEREK Administration REMDESIVIR 100 mg/ Sodium 250 mls @ 500 mls/hr 12/08/20 21:00 12/10/20 21:35 Chloride IV 12/11/20 21:29 500 mls/hr Q24HR@2100 DEREK Administration Labetalol HCl 10 mg 12/10/20 15:00 12/10/20 22:15 Labetalol 20 Mg/4 Ml Inj IV 10 mg Q3H PRN Administration Blood Pressure Metoprolol Tartrate 25 mg 12/09/20 22:00 12/10/20 21:09 Metoprolol Tartrate 25 Mg Tab PO 25 mg BID DEREK Administration Nifedipine 30 mg 12/10/20 15:00 12/10/20 21:11 Nifedipine Xl 30 Mg Tab PO 30 mg Q12HR DEREK Administration Nitrofurantoin Macrocrystals 100 mg 12/07/20 20:00 12/10/20 21:08 Nitrofurantoin Monohyd/M-Cryst 100 Mg Cap PO 12/12/20 08:01 100 mg Q12H DEREK Administration Sodium Chloride 50 ml 12/07/20 21:00 12/10/20 21:35 Sodium Chloride 0.9% 50 Ml Ivpb IV 12/11/20 21:01 50 ml Q24HR@2100 DEREK Administration Valsartan 80 mg 12/09/20 22:00 12/10/20 21:08 Valsartan 40 Mg Tab PO 80 mg Q12HR DEREK Administration Nutrition/Malnutrition Assess - Dietary Evaluation Nutrition/Malnutrition Findings: Nutrition Notes Start: 12/06/20 09:06 Freq: Status: Active Protocol: Document 12/09/20 14:17 CW (Rec: 12/09/20 14:28 CW [id number]) Nutrition Notes Initial or Follow up Reassessment Current Diagnosis Acute Kidney Injury, Respiratory Failure Other Pertinent Diagnosis pneu, acute gastroenteritis Current Diet Regular Labs/Tests reviewed Pertinent Medications Decadron Height 6 ft 3 in Weight 133 kg [place] Body Weight (kg) 89.09 BMI 36.6 Weight Status Morbidly Obese Subjective/Other Information F/U for intakes and ONS. Pt reports eating 50% of breakfast and is currently eating his lunch. Pt reports drinking ensures. Percent of energy/protein needs met: 77%/61% Burn Absent Trauma Absent GI Symptoms None Cultural/Ethnic/M[employer]on Belief No pork or beef Current % PO Fair (50-74%) Minimum of two criteria Yes Energy Intake (severe) < or equal to 50% Estimated Energy Requirement > or equal to 5 days Interpretation of Weight Loss (severe) >5% in 1 month #1 Nutrition Diagnosis Malnutrition Diagnosis Progress(for reassessment Continues documentation) Is patient on ventilator? No Is Patient Ambulatory and/or Out of Bed Yes REE-([place]-St. Jeor-ambulatory/OOB) [ 3049.319 NUTR.MSJOOB] Kcal/Kg value to use for calculation 18 Approximate Energy Requirements Using 2394 kcal/Kg Calculation Used for Recommendations Kcal/kg Additional Notes Protein: 140-176g (1.2-1.5g/kg AdjBW: 117kg) Fluid: 1 ml/kcal Nutrition Intervention Change Diet Order: Continue Add Supplement/Snack (indicate name/kcal Ensure Enlive BID /protein ) Provides kCal: 700 Provides Protein (gm) 40 Goal #1 Meet at least 75% of protein and energy needs via PO and ONS Anticipated Discharge Needs: Regular Follow-Up By: 12/12/20 Additional Comments F/U for intakes and ONS tolerance
[2020-12-11] MEDS: guaiFENesin ER 600 MG TAB PO SCH ×2 (09:22→21:46)
[2020-12-11] MEDS: DEXAMETHASONE 4 MG TAB PO SCH (09:22)
[2020-12-11] MEDS: NITROFURANTOIN MONOHYD/M-CRYST 100 MG CAP PO SCH ×2 (09:23→21:46)
[2020-12-11] MEDS: VALSARTAN 40 MG TAB PO SCH ×2 (09:23→21:46)
[2020-12-11] MEDS: METOPROLOL TARTRATE 25 MG TAB PO SCH ×2 (09:24→21:46)
[2020-12-11] MEDS: NIFEdipine XL 30 MG TAB PO SCH ×2 (09:24→21:46)
--- NOTE | 2020-12-11 16:59 | Progress Note ---
Assessment and Plan Cultures: Blood culture no growth today SARS CoV2 PCR positive Assessment: 35 years old male with no significant medical history admitted on 12/05/2020 secondary to generalized weakness, nausea, vomiting, diarrhea and subjective fever for 4 days: #Severe sepsis: Present on admission with high fever, tachycardia, hypoxia, likely due to bilateral pneumonia. #Severe COVID pneumonia: Chest x-ray with bibasilar infiltrates. Inflammatory markers elevated. #Acute hypoxemic respiratory failure: O2 sat dropped to 85%. Desats overnight now on 5L. #Elevated LFTs: from COVID #Nausea, vomiting, diarrhea: Likely due to acute COVID-19. Resolved. #UTI: mild pyuria, no LE Recommendations: -Continue dexamethasone 6 mg IV/PO daily for 10 days -Continue Remdesivir for 5 days. D5 of 5 -Monitor inflammatory markers - ferritin, Ddimer, CRP, LDH, ordered today -Monitor liver function test on Remdesivir -Continue anticoagulation per System Protocol -Prone positioning as possible Blayne Snyder MD [facility] ([facility] O: [phone] F: [phone] Subjective Date of service: 12/11/20 Principal diagnosis: COVID-19 Interval history: Afebrile, no acute change. Currently on 5 L nasal cannula. Objective - Exam Narrative Exam: Physical exam deferred due to PPE conservation strategy. Please refer to primary team's note. - Constitutional Vitals: Vital Signs Temp Pulse Resp BP Pulse Ox 97.7 F 91 H 18 132/86 94 12/11/20 12:34 12/11/20 12:34 12/11/20 12:34 12/11/20 12:34 12/11/20 12:34 Temperature -Last 24 Hours Temperature 97.7 F Temperature 97.8 F Temperature 98.3 F Temperature 98.1 F - Labs CBC & Chem 7: 12/07/20 06:13 12/10/20 07:33
[2020-12-11] MEDS: REMDESIVIR 100 MG in SODIUM CHLORIDE 0.9% 250ML 250 ML IV SCH (21:47)
[2020-12-11] MEDS: ENOXAPARIN 40 MG/0.4 ML INJ SUB-Q SCH (21:47)
[2020-12-11] MEDS: SODIUM CHLORIDE 0.9% 50 ML IVPB IV SCH (21:47)
[2020-12-12] MEDS: BENZONATATE 100 MG CAP PO SCH ×2 (05:35→13:45)
--- NOTE | 2020-12-12 07:41 | Progress Note ---
Assessment and Plan 35-year-old -[place] male with no significant past medical history comes in for nausea vomiting and generalized weakness. Also intermittent shortness of breath and subjective fever. Denies any cough. Patient went to an urgent care facility and had a negative [id number] Covid test, however pt found to have a low oxygen saturation and was sent to the emergency room for evaluation. Patient also has vomiting and diarrhea for the last 3 to 4 days. Currently admitted for positive Covid test during hospital stay, currently on Solu-Medrol and remdesivir, infectious disease following. Acute hypoxic respiratory failure-secondary to Covid pneumonia. Improving however slowly. Unable to wean from 5 L today. Complete remdesivir continue dexamethasone at this particular time. Continue supportive care, prone position COVID-19 pneumonia Bilateral pneumonia-secondary to COVID-19 pneumonia. Progressing however slowly. Acute kidney injury-secondary to prerenal azotemia improving follow renal function a.m. Sepsis-resolving since admission continues to improve. Clinically feels better. Still remains hypoxic. Acute gastroenteritis resolved Transaminitis secondary to COVID-19 infection. Subjective Principal diagnosis: COVID-19 Interval history: 35-year-old -[place] male with no significant past medical history comes in for nausea vomiting and generalized weakness. Also intermittent shortness of breath and subjective fever. Denies any cough. Patient went to an urgent care facility and had a negative [id number] Covid test, however pt found to have a low oxygen saturation and was sent to the emergency room for evaluation. Ashley harrington also has vomiting and diarrhea for the last 3 to 4 days. Currently admitted for positive Covid test during hospital stay, currently on Solu-Medrol and remdesivir, infectious disease following. 12/06: pt continues to have SOB w/exertion, no diarrhea however decreased PO intake. COVID PCR+, infectious disease consulted. 12/07: pt without diarrhea, tolerating diet. on 4L NC O2, continues to have SOB 12/08 pt seen, no distress, on 4L O2. spoke with nurse to walk pt w/o O2, remdesivir started. pt states he's feeling better, would like to be weaned off O2 12/09 patient seen, on 5 L of oxygen. Spoke with respiratory, attempt to wean patient down. Patient has pending ambulatory oxygen study. 12/10. Patient still requiring 5 L of oxygen via nasal cannula. Check exercise pulse oximetry for further evaluation. Continue dexamethasone and remdesivir. Continue to trend inflammatory markers of ferritin, D-dimer, CRP and LDH. Prone positioning as possible. Continue Macrobid for UTI. Urine culture negative x24 hours 12/11. Patient still requiring 5 L of oxygen via nasal cannula. Check exercise pulse oximetry for further evaluation. Continue dexamethasone and remdesivir. Continue to trend inflammatory markers of ferritin, D-dimer, CRP and LDH. Prone positioning as possible. Continue Macrobid for UTI. Blood cultures remain negative. 12/12. Patient remains on 5 L of oxygen. Attempted to decrease O2 to 4 L and sats went down into the high 80s. Unable to tolerate titration. Presently on dexamethasone remdesivir. Objective - Constitutional Vitals: Vital Signs - 12hr 12/11/20 12/11/20 12/12/20 20:39 22:18 01:32 Temperature 98.7 F Pulse Rate 93 H Respiratory 20 Rate Blood Pressure 140/102 125/83 O2 Sat by Pulse 93 93 Oximetry 12/12/20 04:24 Temperature 98.6 F Pulse Rate 91 H Respiratory 18 Rate Blood Pressure 136/84 O2 Sat by Pulse 90 Oximetry General appearance: Present: no acute distress, well-nourished - EENT Eyes: PERRL, EOM intact ENT: hearing intact, clear oral mucosa Ears: bilateral: normal - Neck Neck: supple, normal ROM - Respiratory Respiratory effort: normal Respiratory: bilateral: CTA - Breasts Breasts: normal - Cardiovascular Rhythm: regular Heart Sounds: Present: S1 & S2. Absent: gallop, rub Extremities: pulses intact, No edema, normal color, Full ROM - Gastrointestinal General gastrointestinal: Present: soft, non-tender, non-distended, normal bowel sounds - Genitourinary Male genitourinary: normal - Integumentary Integumentary: clear, warm, dry - Musculoskeletal Musculoskeletal: 1, strength equal bilaterally - Neurologic Neurologic: moves all extremities - Psychiatric Psychiatric: memory intact, appropriate mood/affect, intact judgment & insight - Labs CBC & Chem 7: 12/07/20 06:13 12/10/20 07:33
[2020-12-12] MEDS: DEXAMETHASONE 4 MG TAB PO SCH (09:27)
[2020-12-12] MEDS: guaiFENesin ER 600 MG TAB PO SCH ×2 (09:28→22:07)
[2020-12-12] MEDS: METOPROLOL TARTRATE 25 MG TAB PO SCH ×2 (09:28→22:07)
[2020-12-12] MEDS: VALSARTAN 40 MG TAB PO SCH ×2 (09:28→22:07)
[2020-12-12] MEDS: NITROFURANTOIN MONOHYD/M-CRYST 100 MG CAP PO SCH (09:28)
[2020-12-12] MEDS: NIFEdipine XL 30 MG TAB PO SCH ×2 (09:30→22:06)
--- NOTE | 2020-12-12 15:23 | Progress Note ---
Assessment and Plan Cultures: Blood culture no growth today SARS CoV2 PCR positive Assessment: 35 years old male with no significant medical history admitted on 12/05/2020 secondary to generalized weakness, nausea, vomiting, diarrhea and subjective fever for 4 days: #Severe sepsis: Present on admission with high fever, tachycardia, hypoxia, likely due to bilateral pneumonia. #Severe COVID pneumonia: Chest x-ray with bibasilar infiltrates. Inflammatory markers elevated. #Acute hypoxemic respiratory failure: O2 sat dropped to 85%. Desats overnight now on 5L. #Elevated LFTs: from COVID #Nausea, vomiting, diarrhea: Likely due to acute COVID-19. Resolved. #UTI: mild pyuria, no LE Recommendations: -Continue dexamethasone 6 mg IV/PO daily for 10 days -Completed remdesivir -Monitor inflammatory markers - ferritin, Ddimer, CRP, LDH, ordered today -Continue anticoagulation per System Protocol -Prone positioning as possible Recommend 6-minute walk test prior to discharge. Infectious disease will sign off. Blayne Snyder MD [facility] ([facility] O: [phone] F: [phone] Subjective Date of service: 12/12/20 Principal diagnosis: COVID-19 Interval history: Afebrile, no acute change. Currently on 5 L nasal cannula. Objective - Exam Narrative Exam: Physical exam deferred to reduce risk of transmission of COVID-19. Please refer to primary team's note. - Constitutional Vitals: Vital Signs Temp Pulse Resp BP Pulse Ox 98.4 F 106 H 19 144/104 92 12/12/20 11:29 12/12/20 11:29 12/12/20 11:29 12/12/20 11:29 12/12/20 11:29 Temperature -Last 24 Hours Temperature 98.4 F Temperature 98.6 F Temperature 98.7 F - Labs CBC & Chem 7: 12/07/20 06:13 12/10/20 07:33
[2020-12-12] MEDS: ENOXAPARIN 40 MG/0.4 ML INJ SUB-Q SCH (22:06)
--- NOTE | 2020-12-13 08:44 | Progress Note ---
Assessment and Plan Assessment and plan: 35-year-old -[place] male with no significant past medical history comes in for nausea vomiting and generalized weakness. Also intermittent shortness of breath and subjective fever. Denies any cough. Patient went to an urgent care facility and had a negative oficj-oa-rhdo Covid test, however pt found to have a low oxygen saturation and was sent to the emergency room for evaluation. Patient also has vomiting and diarrhea for the last 3 to 4 days. Currently admitted for positive Covid test during hospital stay, currently on Solu-Medrol and remdesivir, infectious disease following. Acute hypoxic respiratory failure COVID-19 pneumonia Bilateral pneumonia Acute kidney injury Sepsis Acute gastroenteritis Transaminitis Hyponatremia 12/06: pt continues to have SOB w/exertion, no diarrhea however decreased PO intake. COVID PCR+, infectious disease consulted. 12/07: pt without diarrhea, tolerating diet. on 4L NC O2, continues to have SOB 12/08 pt seen, no distress, on 4L O2. spoke with nurse to walk pt w/o O2, remdesivir started. pt states he's feeling better, would like to be weaned off O2 12/09 patient seen, on 5 L of oxygen. Spoke with respiratory, attempt to wean patient down. Patient has pending ambulatory oxygen study. 12/10. Patient still requiring 5 L of oxygen via nasal cannula. Check exercise pulse oximetry for further evaluation. Continue dexamethasone and remdesivir. Continue to trend inflammatory markers of ferritin, D-dimer, CRP and LDH. Prone positioning as possible. Continue Macrobid for UTI. Urine culture negative x24 hours 12/11. Patient still requiring 5 L of oxygen via nasal cannula. Check exercise pulse oximetry for further evaluation. Continue dexamethasone and remdesivir. Continue to trend inflammatory markers of ferritin, D-dimer, CRP and LDH. Prone positioning as possible. Continue Macrobid for UTI. Blood cultures remain negative. 12/12. Patient remains on 5 L of oxygen. Attempted to decrease O2 to 4 L and sats went down into the high 80s. Unable to tolerate titration. Presently on dexamethasone remdesivir. 12/13. Patient remains on 5 L of oxygen. Continue to wean oxygen supplementation as tolerated. Continue dexamethasone and remdesivir. Prone positioning as possible. Continue to trend inflammatory markers. Macrobid for UTI. History Interval history: No new issues overnight. Hospitalist Physical - Constitutional Vitals: Temp Pulse Resp BP Pulse Ox 98.4 F 93 H 20 125/80 90 12/13/20 06:18 12/13/20 06:18 12/13/20 06:18 12/13/20 06:18 12/13/20 06:18 General appearance: Present: no acute distress, well-nourished - EENT Eyes: Present: PERRL, EOM intact ENT: hearing intact, clear oral mucosa, dentition normal - Neck Neck: Present: supple, normal ROM - Respiratory Respiratory effort: normal Respiratory: bilateral: CTA - Cardiovascular Rhythm: regular Heart Sounds: Present: S1 & S2. Absent: gallop, rub - Extremities Extremities: no ischemia, No edema, Full ROM - Abdominal General gastrointestinal: soft, non-tender, non-distended, normal bowel sounds - Integumentary Integumentary: Present: clear, warm, dry - Neurologic Neurologic: CNII-XII intact, moves all extremities Results - Labs CBC & Chem 7: 12/07/20 06:13 12/10/20 07:33 Labs: Laboratory Last Values WBC 9.8 K/mm3 (4.5-11.0) 12/07/20 06:13 RBC 5.02 M/mm3 (3.65-5.03) 12/07/20 06:13 Hgb 14.6 gm/dl (11.8-15.2) 12/07/20 06:13 Hct 43.6 % (35.5-45.6) 12/07/20 06:13 MCV 87 fl (84-94) 12/07/20 06:13 MCH 29 pg (28-32) 12/07/20 06:13 MCHC 33 % (32-34) 12/07/20 06:13 RDW 14.4 % (13.2-15.2) 12/07/20 06:13 Plt Count 340 K/mm3 (140-440) 12/07/20 06:13 Lymph % (Auto) 24.4 % (13.4-35.0) 12/05/20 12:03 [place] % (Auto) 4.3 % (0.0-7.3) 12/05/20 12:03 Eos % (Auto) 0.0 % (0.0-4.3) 12/05/20 12:03 Baso % (Auto) 1.5 % (0.0-1.8) 12/05/20 12:03 Lymph # (Auto) 1.3 K/mm3 (1.2-5.4) 12/05/20 12:03 [place] # (Auto) 0.2 K/mm3 (0.0-0.8) 12/05/20 12:03 Eos # (Auto) 0.0 K/mm3 (0.0-0.4) 12/05/20 12:03 Baso # (Auto) 0.1 K/mm3 (0.0-0.1) 12/05/20 12:03 Seg Neutrophils % 69.8 % (40.0-70.0) 12/05/20 12:03 Seg Neutrophils # 3.9 K/mm3 (1.8-7.7) 12/05/20 12:03 PT 12.4 Sec. (12.2-14.9) 12/05/20 12:03 INR 0.94 (0.87-1.13) 12/05/20 12:03 D-Dimer 486.31 ng/mlDDU (0-234) H 12/08/20 13:43 VBG pH 7.386 (7.320-7.420) 12/05/20 12:03 Sodium 138 mmol/L (137-145) 12/10/20 07:33 Potassium 4.5 mmol/L (3.6-5.0) 12/10/20 07:33 Chloride 101.0 mmol/L (98-107) 12/10/20 07:33 Carbon Dioxide 27 mmol/L (22-30) 12/10/20 07:33 Anion Gap 15 mmol/L 12/10/20 07:33 BUN 19 mg/dL (9-20) 12/10/20 07:33 Creatinine 1.0 mg/dL (0.8-1.3) 12/10/20 07:33 Estimated GFR > 60 ml/min 12/10/20 07:33 BUN/Creatinine Ratio 19 % 12/10/20 07:33 Glucose 98 mg/dL (75-100) 12/10/20 07:33 Lactic Acid 1.60 mmol/L (0.7-2.0) 12/05/20 14:50 Calcium 8.9 mg/dL (8.4-10.2) 12/10/20 07:33 Ferritin 586.6 ng/mL (30.0-300.0) H 12/08/20 13:43 Total Bilirubin 0.40 mg/dL (0.1-1.2) 12/10/20 07:33 AST 29 units/L (5-40) 12/10/20 07:33 ALT 56 units/L (7-56) 12/10/20 07:33 Alkaline Phosphatase 27 units/L (35-129) L 12/10/20 07:33 Lactate Dehydrogenase 680 units/L (91-180) H 12/08/20 13:43 C-Reactive Protein 8.40 mg/dL (0.00-1.30) H 12/08/20 13:43 NT-Pro-B Natriuret Pep 9.40 pg/mL (0-450) 12/05/20 12:03 Total Protein 5.9 g/dL (6.3-8.2) L 12/10/20 07:33 Albumin 2.9 g/dL (3.9-5) L 12/10/20 07:33 Albumin/Globulin Ratio 1.0 % 12/10/20 07:33 Procalcitonin 0.07 ng/mL (<0.15) 12/07/20 06:13 Urine Color [place] (Yellow) 12/05/20 15:41 Urine Turbidity Slightly-cloudy (Clear) 12/05/20 15:41 Urine pH 5.0 (5.0-7.0) 12/05/20 15:41 Ur Specific [place] 1.023 (1.003-1.030) 12/05/20 15:41 Urine Protein 100 mg/dl mg/dL (Negative) 12/05/20 15:41 Urine Glucose (UA) Neg mg/dL (Negative) 12/05/20 15:41 Urine Ketones 20 mg/dL (Negative) 12/05/20 15:41 Urine Blood Lg (Negative) 12/05/20 15:41 Urine Nitrite Neg (Negative) 12/05/20 15:41 Urine Bilirubin Neg (Negative) 12/05/20 15:41 Urine Urobilinogen < 2.0 mg/dL (<2.0) 12/05/20 15:41 Ur Leukocyte Esterase Neg (Negative) 12/05/20 15:41 Urine WBC (Auto) 18.0 /HPF (0.0-6.0) H 12/05/20 15:41 Urine RBC (Auto) 2.0 /HPF (0.0-6.0) 12/05/20 15:41 U Epithel Cells (Auto) < 1.0 /HPF (0-13.0) 12/05/20 15:41 Urine Mucus 1+ /HPF 12/05/20 15:41 Coronavirus (PCR) Positive (Negative) A 12/06/20 Unknown Art/IV: Voiding Method Urinal Active Medications - Current Medications Current Medications: Generic Name Dose Route Start Last Admin Trade Name Freq PRN Reason Stop Dose Admin Acetaminophen 650 mg 12/05/20 23:16 12/07/20 22:17 Acetaminophen 325 Mg Tab PO 650 mg Q6H PRN Administration Pain, Mild (1-3) Dexamethasone 6 mg 12/09/20 10:00 12/12/20 09:27 Dexamethasone 4 Mg Tab PO 12/14/20 12:00 6 mg DAILY DEREK Administration Enoxaparin Sodium 40 mg 12/06/20 22:00 12/12/20 22:06 Enoxaparin 40 Mg/0.4 Ml Inj SUB-Q 40 mg QDAY@2200 DEREK Administration Protocol Guaifenesin 600 mg 12/07/20 22:00 12/12/20 22:07 Guaifenesin Er 600 Mg Tab PO 600 mg BID DEREK Administration Labetalol HCl 10 mg 12/10/20 15:00 12/12/20 14:21 Labetalol 20 Mg/4 Ml Inj IV 10 mg Q3H PRN Administration Blood Pressure Metoprolol Tartrate 25 mg 12/09/20 22:00 12/12/20 22:07 Metoprolol Tartrate 25 Mg Tab PO 25 mg BID DEREK Administration Nifedipine 30 mg 12/10/20 15:00 12/12/20 22:06 Nifedipine Xl 30 Mg Tab PO 30 mg Q12HR DEREK Administration Valsartan 80 mg 12/09/20 22:00 12/12/20 22:07 Valsartan 40 Mg Tab PO 80 mg Q12HR DEREK Administration Nutrition/Malnutrition Assess - Dietary Evaluation Nutrition/Malnutrition Findings: Nutrition Notes Start: 12/06/20 09:06 Freq: Status: Active Protocol: Document 12/12/20 09:01 ADRYAN (Rec: 12/12/20 09:05 ADRYAN [id number]) Nutrition Notes Initial or Follow up Reassessment Current Diagnosis Acute Kidney Injury, Respiratory Failure Other Pertinent Diagnosis pneu, acute gastroenteritis Current Diet Cardiac Labs/Tests 12/11: BP 140/102 Pertinent Medications Reviewed Height 6 ft 3 in Weight 132.2 kg [place] Body Weight (kg) 89.09 BMI 36.4 Weight Status Morbidly Obese Subjective/Other Information FU for intakes and ONS. Pt with elevated BP since admission. Pt given low sodium diet education. Pt reports eating 75% of meals and 100% of 2 ONS. Percent of energy/protein needs met: 100%/74% Burn Absent Trauma Absent GI Symptoms None Cultural/Ethnic/Buddhist Belief No pork or beef Current % PO Good (75-100%) Minimum of two criteria Yes Energy Intake (severe) < or equal to 50% Estimated Energy Requirement > or equal to 5 days Interpretation of Weight Loss (severe) >5% in 1 month #1 Nutrition Diagnosis Malnutrition Diagnosis Progress(for reassessment Continues documentation) Is patient on ventilator? No Is Patient Ambulatory and/or Out of Bed Yes REE-([place]. or-ambulatory/OOB) [ 3038.919 NUTR.MSJOOB] Kcal/Kg value to use for calculation 18 Approximate Energy Requirements Using 2380 kcal/Kg Calculation Used for Recommendations Kcal/kg Additional Notes Protein: 140-176g (1.2-1.5g/kg AdjBW: 117kg) Fluid: 1 ml/kcal Nutrition Intervention Change Diet Order: Continue Add Supplement/Snack (indicate name/kcal Ensure Enlive BID /protein ) Provides kCal: 700 Provides Protein (gm) 40 Goal #1 Meet at least 75% of protein and energy needs via PO and ONS Anticipated Discharge Needs: Cardiac Follow-Up By: 12/17/20 Additional Comments FU for stable intakes
[2020-12-13] MEDS: DEXAMETHASONE 4 MG TAB PO SCH (09:27)
[2020-12-13] MEDS: METOPROLOL TARTRATE 25 MG TAB PO SCH ×2 (09:28→21:27)
[2020-12-13] MEDS: NIFEdipine XL 30 MG TAB PO SCH ×2 (09:28→21:27)
[2020-12-13] MEDS: guaiFENesin ER 600 MG TAB PO SCH ×2 (09:28→21:27)
[2020-12-13] MEDS: VALSARTAN 40 MG TAB PO SCH ×2 (09:29→21:27)
[2020-12-13] MEDS: ENOXAPARIN 40 MG/0.4 ML INJ SUB-Q SCH (21:27)
[2020-12-14] MEDS: METOPROLOL TARTRATE 25 MG TAB PO SCH ×2 (09:12→21:25)
[2020-12-14] MEDS: VALSARTAN 40 MG TAB PO SCH ×2 (09:12→21:25)
[2020-12-14] MEDS: DEXAMETHASONE 4 MG TAB PO SCH (09:12)
[2020-12-14] MEDS: NIFEdipine XL 30 MG TAB PO SCH ×2 (09:12→21:25)
[2020-12-14] MEDS: guaiFENesin ER 600 MG TAB PO SCH ×2 (09:12→21:25)
--- NOTE | 2020-12-14 09:20 | Progress Note ---
Assessment and Plan Assessment and plan: 35-year-old -[place] male with no significant past medical history comes in for nausea vomiting and generalized weakness. Also intermittent shortness of breath and subjective fever. Denies any cough. Patient went to an urgent care facility and had a negative rirhs-ze-hadb Covid test, however pt found to have a low oxygen saturation and was sent to the emergency room for evaluation. Patient also has vomiting and diarrhea for the last 3 to 4 days. Currently admitted for positive Covid test during hospital stay, currently on Solu-Medrol and remdesivir, infectious disease following. Acute hypoxic respiratory failure COVID-19 pneumonia Bilateral pneumonia Acute kidney injury Sepsis Acute gastroenteritis Transaminitis Hyponatremia 12/06: pt continues to have SOB w/exertion, no diarrhea however decreased PO intake. COVID PCR+, infectious disease consulted. 12/07: pt without diarrhea, tolerating diet. on 4L [place] O2, continues to have SOB 12/08 pt seen, no distress, on 4L O2. spoke with nurse to walk pt w/o O2, remdesivir started. pt states he's feeling better, would like to be weaned off O2 12/09 patient seen, on 5 L of oxygen. Spoke with respiratory, attempt to wean patient down. Patient has pending ambulatory oxygen study. 12/10. Patient still requiring 5 L of oxygen via nasal cannula. Check exercise pulse oximetry for further evaluation. Continue dexamethasone and remdesivir. Continue to trend inflammatory markers of ferritin, D-dimer, CRP and LDH. Prone positioning as possible. Continue Macrobid for UTI. Urine culture negative x24 hours 12/11. Patient still requiring 5 L of oxygen via nasal cannula. Check exercise pulse oximetry for further evaluation. Continue dexamethasone and remdesivir. Continue to trend inflammatory markers of ferritin, D-dimer, CRP and LDH. Prone positioning as possible. Continue Macrobid for UTI. Blood cultures remain negative. 12/12. Patient remains on 5 L of oxygen. Attempted to decrease O2 to 4 L and sats went down into the high 80s. Unable to tolerate titration. Presently on dexamethasone remdesivir. 12/13. Patient remains on 5 L of oxygen. Continue to wean oxygen supplementation as tolerated. Continue dexamethasone and remdesivir. Prone positioning as possible. Continue to trend inflammatory markers. Macrobid for UTI. 12/14. Patient's oxygen requirements have been decreased to 3 L. Check exercise pulse oximetry today. Dexamethasone (5/10). Completed remdesivir. Macrobid completed for UTI. Patient is uninsured but Case management reports patient can afford home oxygen at $75 per month History Interval history: No new issues overnight. Hospitalist Physical - Constitutional Vitals: Temp Pulse Resp BP Pulse Ox 97.6 F 76 18 120/73 97 12/14/20 05:58 12/14/20 09:12 12/14/20 05:58 12/14/20 09:12 12/14/20 05:58 General appearance: Present: no acute distress, well-nourished - EENT Eyes: Present: PERRL, EOM intact ENT: hearing intact, clear oral mucosa, dentition normal - Neck Neck: Present: supple, normal ROM - Respiratory Respiratory effort: normal Respiratory: bilateral: CTA - Cardiovascular Rhythm: regular Heart Sounds: Present: S1 & S2. Absent: gallop, rub - Extremities Extremities: no ischemia, No edema, Full ROM - Abdominal General gastrointestinal: soft, non-tender, non-distended, normal bowel sounds - Integumentary Integumentary: Present: clear, warm, dry - Neurologic Neurologic: CNII-XII intact, moves all extremities Results - Labs CBC & Chem 7: 12/07/20 06:13 12/10/20 07:33 Labs: Laboratory Last Values WBC 9.8 K/mm3 (4.5-11.0) 12/07/20 06:13 RBC 5.02 M/mm3 (3.65-5.03) 12/07/20 06:13 Hgb 14.6 gm/dl (11.8-15.2) 12/07/20 06:13 Hct 43.6 % (35.5-45.6) 12/07/20 06:13 MCV 87 fl (84-94) 12/07/20 06:13 MCH 29 pg (28-32) 12/07/20 06:13 MCHC 33 % (32-34) 12/07/20 06:13 RDW 14.4 % (13.2-15.2) 12/07/20 06:13 Plt Count 340 K/mm3 (140-440) 12/07/20 06:13 Lymph % (Auto) 24.4 % (13.4-35.0) 12/05/20 12:03 [place] % (Auto) 4.3 % (0.0-7.3) 12/05/20 12:03 Eos % (Auto) 0.0 % (0.0-4.3) 12/05/20 12:03 Baso % (Auto) 1.5 % (0.0-1.8) 12/05/20 12:03 Lymph # (Auto) 1.3 K/mm3 (1.2-5.4) 12/05/20 12:03 [place] # (Auto) 0.2 K/mm3 (0.0-0.8) 12/05/20 12:03 Eos # (Auto) 0.0 K/mm3 (0.0-0.4) 12/05/20 12:03 Baso # (Auto) 0.1 K/mm3 (0.0-0.1) 12/05/20 12:03 Seg Neutrophils % 69.8 % (40.0-70.0) 12/05/20 12:03 Seg Neutrophils # 3.9 K/mm3 (1.8-7.7) 12/05/20 12:03 PT 12.4 Sec. (12.2-14.9) 12/05/20 12:03 INR 0.94 (0.87-1.13) 12/05/20 12:03 D-Dimer 486.31 ng/mlDDU (0-234) H 12/08/20 13:43 VBG pH 7.386 (7.320-7.420) 12/05/20 12:03 Sodium 138 mmol/L (137-145) 12/10/20 07:33 Potassium 4.5 mmol/L (3.6-5.0) 12/10/20 07:33 Chloride 101.0 mmol/L (98-107) 12/10/20 07:33 Carbon Dioxide 27 mmol/L (22-30) 12/10/20 07:33 Anion Gap 15 mmol/L 12/10/20 07:33 BUN 19 mg/dL (9-20) 12/10/20 07:33 Creatinine 1.0 mg/dL (0.8-1.3) 12/10/20 07:33 Estimated GFR > 60 ml/min 12/10/20 07:33 BUN/Creatinine Ratio 19 % 12/10/20 07:33 Glucose 98 mg/dL (75-100) 12/10/20 07:33 Lactic Acid 1.60 mmol/L (0.7-2.0) 12/05/20 14:50 Calcium 8.9 mg/dL (8.4-10.2) 12/10/20 07:33 Ferritin 586.6 ng/mL (30.0-300.0) H 12/08/20 13:43 Total Bilirubin 0.40 mg/dL (0.1-1.2) 12/10/20 07:33 AST 29 units/L (5-40) 12/10/20 07:33 ALT 56 units/L (7-56) 12/10/20 07:33 Alkaline Phosphatase 27 units/L (35-129) L 12/10/20 07:33 Lactate Dehydrogenase 680 units/L (91-180) H 12/08/20 13:43 C-Reactive Protein 8.40 mg/dL (0.00-1.30) H 12/08/20 13:43 NT-Pro-B Natriuret Pep 9.40 pg/mL (0-450) 12/05/20 12:03 Total Protein 5.9 g/dL (6.3-8.2) L 12/10/20 07:33 Albumin 2.9 g/dL (3.9-5) L 12/10/20 07:33 Albumin/Globulin Ratio 1.0 % 12/10/20 07:33 Procalcitonin 0.07 ng/mL (<0.15) 12/07/20 06:13 Urine Color [place] (Yellow) 12/05/20 15:41 Urine Turbidity Slightly-cloudy (Clear) 12/05/20 15:41 Urine pH 5.0 (5.0-7.0) 12/05/20 15:41 Ur Specific [place] 1.023 (1.003-1.030) 12/05/20 15:41 Urine Protein 100 mg/dl mg/dL (Negative) 12/05/20 15:41 Urine Glucose (UA) Neg mg/dL (Negative) 12/05/20 15:41 Urine Ketones 20 mg/dL (Negative) 12/05/20 15:41 Urine Blood Lg (Negative) 12/05/20 15:41 Urine Nitrite Neg (Negative) 12/05/20 15:41 Urine Bilirubin Neg (Negative) 12/05/20 15:41 Urine Urobilinogen < 2.0 mg/dL (<2.0) 12/05/20 15:41 Ur Leukocyte Esterase Neg (Negative) 12/05/20 15:41 Urine WBC (Auto) 18.0 /HPF (0.0-6.0) H 12/05/20 15:41 Urine RBC (Auto) 2.0 /HPF (0.0-6.0) 12/05/20 15:41 U Epithel Cells (Auto) < 1.0 /HPF (0-13.0) 12/05/20 15:41 Urine Mucus 1+ /HPF 12/05/20 15:41 Coronavirus (PCR) Positive (Negative) A 12/06/20 Unknown Art/IV: Voiding Method Toilet Active Medications - Current Medications Current Medications: Generic Name Dose Route Start Last Admin Trade Name Freq PRN Reason Stop Dose Admin Acetaminophen 650 mg 12/05/20 23:16 12/07/20 22:17 Acetaminophen 325 Mg Tab PO 650 mg Q6H PRN Administration Pain, Mild (1-3) Dexamethasone 6 mg 12/09/20 10:00 12/14/20 09:12 Dexamethasone 4 Mg Tab PO 12/14/20 12:00 6 mg DAILY DEREK Administration Enoxaparin Sodium 40 mg 12/06/20 22:00 12/13/20 21:27 Enoxaparin 40 Mg/0.4 Ml Inj SUB-Q 40 mg QDAY@2200 DEREK Administration Protocol Guaifenesin 600 mg 12/07/20 22:00 12/14/20 09:12 Guaifenesin Er 600 Mg Tab PO 600 mg BID DEREK Administration Labetalol HCl 10 mg 12/10/20 15:00 12/12/20 14:21 Labetalol 20 Mg/4 Ml Inj IV 10 mg Q3H PRN Administration Blood Pressure Metoprolol Tartrate 25 mg 12/09/20 22:00 12/14/20 09:12 Metoprolol Tartrate 25 Mg Tab PO 25 mg BID DEREK Administration Nifedipine 30 mg 12/10/20 15:00 12/14/20 09:12 Nifedipine Xl 30 Mg Tab PO 30 mg Q12HR DEREK Administration Valsartan 80 mg 12/09/20 22:00 12/14/20 09:12 Valsartan 40 Mg Tab PO 80 mg Q12HR DEREK Administration Nutrition/Malnutrition Assess - Dietary Evaluation Nutrition/Malnutrition Findings: Nutrition Notes Start: 12/06/20 09:06 Freq: Status: Active Protocol: Document 12/12/20 09:01 ADRYAN (Rec: 12/12/20 09:05 ADRYAN [id number]) Nutrition Notes Initial or Follow up Reassessment Current Diagnosis Acute Kidney Injury, Respiratory Failure Other Pertinent Diagnosis pneu, acute gastroenteritis Current Diet Cardiac Labs/Tests 12/11: BP 140/102 Pertinent Medications Reviewed Height 6 ft 3 in Weight 132.2 kg [place] Body Weight (kg) 89.09 BMI 36.4 Weight Status Morbidly Obese Subjective/Other Information FU for intakes and ONS. Pt with elevated BP since admission. Pt given low sodium diet education. Pt reports eating 75% of meals and 100% of 2 ONS. Percent of energy/protein needs met: 100%/74% Burn Absent Trauma Absent GI Symptoms None Cultural/Ethnic/L[employer] Day Belief No pork or beef Current % PO Good (75-100%) Minimum of two criteria Yes Energy Intake (severe) < or equal to 50% Estimated Energy Requirement > or equal to 5 days Interpretation of Weight Loss (severe) >5% in 1 month #1 Nutrition Diagnosis Malnutrition Diagnosis Progress(for reassessment Continues documentation) Is patient on ventilator? No Is Patient Ambulatory and/or Out of Bed Yes REE-([place]-[facility]. or-ambulatory/OOB) [ 3038.919 NUTR.MSJOOB] Kcal/Kg value to use for calculation 18 Approximate Energy Requirements Using 2380 kcal/Kg Calculation Used for Recommendations Kcal/kg Additional Notes Protein: 140-176g (1.2-1.5g/kg AdjBW: 117kg) Fluid: 1 ml/kcal Nutrition Intervention Change Diet Order: Continue Add Supplement/Snack (indicate name/kcal Ensure Enlive BID /protein ) Provides kCal: 700 Provides Protein (gm) 40 Goal #1 Meet at least 75% of protein and energy needs via PO and ONS Anticipated Discharge Needs: Cardiac Follow-Up By: 12/17/20 Additional Comments FU for stable intakes
[2020-12-14] MEDS: ENOXAPARIN 40 MG/0.4 ML INJ SUB-Q SCH (21:25)
--- NOTE | 2020-12-15 09:10 | Progress Note ---
Assessment and Plan Assessment and plan: 35-year-old -[place] male with no significant past medical history comes in for nausea vomiting and generalized weakness. Also intermittent shortness of breath and subjective fever. Denies any cough. Patient went to an urgent care facility and had a negative [id number] Covid test, however pt found to have a low oxygen saturation and was sent to the emergency room for evaluation. Patient also has vomiting and diarrhea for the last 3 to 4 days. Currently admitted for positive Covid test during hospital stay, currently on Solu-Medrol and remdesivir, infectious disease following. Acute hypoxic respiratory failure COVID-19 pneumonia Bilateral pneumonia Acute kidney injury Sepsis Acute gastroenteritis Transaminitis Hyponatremia 12/06: pt continues to have SOB w/exertion, no diarrhea however decreased PO intake. COVID PCR+, infectious disease consulted. 12/07: pt without diarrhea, tolerating diet. on 4L NC O2, continues to have SOB 12/08 pt seen, no distress, on 4L O2. spoke with nurse to walk pt w/o O2, remdesivir started. pt states he's feeling better, would like to be weaned off O2 12/09 patient seen, on 5 L of oxygen. Spoke with respiratory, attempt to wean patient down. Patient has pending ambulatory oxygen study. 12/10. Patient still requiring 5 L of oxygen via nasal cannula. Check exercise pulse oximetry for further evaluation. Continue dexamethasone and remdesivir. Continue to trend inflammatory markers of ferritin, D-dimer, CRP and LDH. Prone positioning as possible. Continue Macrobid for UTI. Urine culture negative x24 hours 12/11. Patient still requiring 5 L of oxygen via nasal cannula. Check exercise pulse oximetry for further evaluation. Continue dexamethasone and remdesivir. Continue to trend inflammatory markers of ferritin, D-dimer, CRP and LDH. Prone positioning as possible. Continue Macrobid for UTI. Blood cultures remain negative. 12/12. Patient remains on 5 L of oxygen. Attempted to decrease O2 to 4 L and sats went down into the high 80s. Unable to tolerate titration. Presently on dexamethasone remdesivir. 12/13. Patient remains on 5 L of oxygen. Continue to wean oxygen supplementation as tolerated. Continue dexamethasone and remdesivir. Prone positioning as possible. Continue to trend inflammatory markers. Macrobid for UTI. 12/14. Patient's oxygen requirements have been decreased to 3 L. Check exercise pulse oximetry today. Dexamethasone (5/10). Completed remdesivir. Macrobid completed for UTI. Patient is uninsured but Case management reports patient can afford home oxygen at $75 per month 12/15. Patient still with desaturations with pulse oximetry with exercise on oxygen. Patient noted to desat to mid 80s on 3 L of oxygen. Completed remdesivir. Completed Macrobid for UTI. Continue dexamethasone. History Interval history: No new issues overnight. Hospitalist Physical - Constitutional Vitals: Temp Pulse Resp BP Pulse Ox 97.9 F 74 19 121/76 94 12/15/20 04:48 12/15/20 04:48 12/15/20 04:48 12/15/20 04:48 12/15/20 04:48 General appearance: Present: no acute distress, well-nourished - EENT Eyes: Present: PERRL, EOM intact ENT: hearing intact, clear oral mucosa, dentition normal - Neck Neck: Present: supple, normal ROM - Respiratory Respiratory effort: normal Respiratory: bilateral: CTA - Cardiovascular Rhythm: regular Heart Sounds: Present: S1 & S2. Absent: gallop, rub - Extremities Extremities: no ischemia, No edema, Full ROM - Abdominal General gastrointestinal: soft, non-tender, non-distended, normal bowel sounds - Integumentary Integumentary: Present: clear, warm, dry - Neurologic Neurologic: CNII-XII intact, moves all extremities Results - Labs CBC & Chem 7: 12/07/20 06:13 12/10/20 07:33 Labs: Laboratory Last Values WBC 9.8 K/mm3 (4.5-11.0) 12/07/20 06:13 RBC 5.02 M/mm3 (3.65-5.03) 12/07/20 06:13 Hgb 14.6 gm/dl (11.8-15.2) 12/07/20 06:13 Hct 43.6 % (35.5-45.6) 12/07/20 06:13 MCV 87 fl (84-94) 12/07/20 06:13 MCH 29 pg (28-32) 12/07/20 06:13 MCHC 33 % (32-34) 12/07/20 06:13 RDW 14.4 % (13.2-15.2) 12/07/20 06:13 Plt Count 340 K/mm3 (140-440) 12/07/20 06:13 Lymph % (Auto) 24.4 % (13.4-35.0) 12/05/20 12:03 [place] % (Auto) 4.3 % (0.0-7.3) 12/05/20 12:03 Eos % (Auto) 0.0 % (0.0-4.3) 12/05/20 12:03 Baso % (Auto) 1.5 % (0.0-1.8) 12/05/20 12:03 Lymph # (Auto) 1.3 K/mm3 (1.2-5.4) 12/05/20 12:03 [place] # (Auto) 0.2 K/mm3 (0.0-0.8) 12/05/20 12:03 Eos # (Auto) 0.0 K/mm3 (0.0-0.4) 12/05/20 12:03 Baso # (Auto) 0.1 K/mm3 (0.0-0.1) 12/05/20 12:03 Seg Neutrophils % 69.8 % (40.0-70.0) 12/05/20 12:03 Seg Neutrophils # 3.9 K/mm3 (1.8-7.7) 12/05/20 12:03 PT 12.4 Sec. (12.2-14.9) 12/05/20 12:03 INR 0.94 (0.87-1.13) 12/05/20 12:03 D-Dimer 486.31 ng/mlDDU (0-234) H 12/08/20 13:43 VBG pH 7.386 (7.320-7.420) 12/05/20 12:03 Sodium 138 mmol/L (137-145) 12/10/20 07:33 Potassium 4.5 mmol/L (3.6-5.0) 12/10/20 07:33 Chloride 101.0 mmol/L (98-107) 12/10/20 07:33 Carbon Dioxide 27 mmol/L (22-30) 12/10/20 07:33 Anion Gap 15 mmol/L 12/10/20 07:33 BUN 19 mg/dL (9-20) 12/10/20 07:33 Creatinine 1.0 mg/dL (0.8-1.3) 12/10/20 07:33 Estimated GFR > 60 ml/min 12/10/20 07:33 BUN/Creatinine Ratio 19 % 12/10/20 07:33 Glucose 98 mg/dL (75-100) 12/10/20 07:33 Lactic Acid 1.60 mmol/L (0.7-2.0) 12/05/20 14:50 Calcium 8.9 mg/dL (8.4-10.2) 12/10/20 07:33 Ferritin 586.6 ng/mL (30.0-300.0) H 12/08/20 13:43 Total Bilirubin 0.40 mg/dL (0.1-1.2) 12/10/20 07:33 AST 29 units/L (5-40) 12/10/20 07:33 ALT 56 units/L (7-56) 12/10/20 07:33 Alkaline Phosphatase 27 units/L (35-129) L 12/10/20 07:33 Lactate Dehydrogenase 680 units/L (91-180) H 12/08/20 13:43 C-Reactive Protein 8.40 mg/dL (0.00-1.30) H 12/08/20 13:43 NT-Pro-B Natriuret Pep 9.40 pg/mL (0-450) 12/05/20 12:03 Total Protein 5.9 g/dL (6.3-8.2) L 12/10/20 07:33 Albumin 2.9 g/dL (3.9-5) L 12/10/20 07:33 Albumin/Globulin Ratio 1.0 % 12/10/20 07:33 Procalcitonin 0.07 ng/mL (<0.15) 12/07/20 06:13 Urine Color Zuleima (Yellow) 12/05/20 15:41 Urine Turbidity Slightly-cloudy (Clear) 12/05/20 15:41 Urine pH 5.0 (5.0-7.0) 12/05/20 15:41 Ur Specific [place] 1.023 (1.003-1.030) 12/05/20 15:41 Urine Protein 100 mg/dl mg/dL (Negative) 12/05/20 15:41 Urine Glucose (UA) Neg mg/dL (Negative) 12/05/20 15:41 Urine Ketones 20 mg/dL (Negative) 12/05/20 15:41 Urine Blood Lg (Negative) 12/05/20 15:41 Urine Nitrite Neg (Negative) 12/05/20 15:41 Urine Bilirubin Neg (Negative) 12/05/20 15:41 Urine Urobilinogen < 2.0 mg/dL (<2.0) 12/05/20 15:41 Ur Leukocyte Esterase Neg (Negative) 12/05/20 15:41 Urine WBC (Auto) 18.0 /HPF (0.0-6.0) H 12/05/20 15:41 Urine RBC (Auto) 2.0 /HPF (0.0-6.0) 12/05/20 15:41 U Epithel Cells (Auto) < 1.0 /HPF (0-13.0) 12/05/20 15:41 Urine Mucus 1+ /HPF 12/05/20 15:41 Coronavirus (PCR) Positive (Negative) A 12/06/20 Unknown Art/IV: Voiding Method Toilet Active Medications - Current Medications Current Medications: Generic Name Dose Route Start Last Admin Trade Name Freq PRN Reason Stop Dose Admin Acetaminophen 650 mg 12/05/20 23:16 12/07/20 22:17 Acetaminophen 325 Mg Tab PO 650 mg Q6H PRN Administration Pain, Mild (1-3) Enoxaparin Sodium 40 mg 12/06/20 22:00 12/14/20 21:25 Enoxaparin 40 Mg/0.4 Ml Inj SUB-Q 40 mg QDAY@2200 DEREK Administration Protocol Guaifenesin 600 mg 12/07/20 22:00 12/14/20 21:25 Guaifenesin Er 600 Mg Tab PO 600 mg BID DEREK Administration Labetalol HCl 10 mg 12/10/20 15:00 12/12/20 14:21 Labetalol 20 Mg/4 Ml Inj IV 10 mg Q3H PRN Administration Blood Pressure Metoprolol Tartrate 25 mg 12/09/20 22:00 12/14/20 21:25 Metoprolol Tartrate 25 Mg Tab PO 25 mg BID DEREK Administration Nifedipine 30 mg 12/10/20 15:00 12/14/20 21:25 Nifedipine Xl 30 Mg Tab PO 30 mg Q12HR DEREK Administration Valsartan 80 mg 12/09/20 22:00 12/14/20 21:25 Valsartan 40 Mg Tab PO 80 mg Q12HR DEREK Administration Nutrition/Malnutrition Assess - Dietary Evaluation Nutrition/Malnutrition Findings: Nutrition Notes Start: 12/06/20 09:06 Freq: Status: Active Protocol: Document 12/12/20 09:01 ADRYAN (Rec: 12/12/20 09:05 ADRYAN [id number]) Nutrition Notes Initial or Follow up Reassessment Current Diagnosis Acute Kidney Injury, Respiratory Failure Other Pertinent Diagnosis pneu, acute gastroenteritis Current Diet Cardiac Labs/Tests 12/11: BP 140/102 Pertinent Medications Reviewed Height 6 ft 3 in Weight 132.2 kg [place] Body Weight (kg) 89.09 BMI 36.4 Weight Status Morbidly Obese Subjective/Other Information FU for intakes and ONS. Pt with elevated BP since admission. Pt given low sodium diet education. Pt reports eating 75% of meals and 100% of 2 ONS. Percent of energy/protein needs met: 100%/74% Burn Absent Trauma Absent GI Symptoms None Cultural/Ethnic/Congregation Belief No pork or beef Current % PO Good (75-100%) Minimum of two criteria Yes Energy Intake (severe) < or equal to 50% Estimated Energy Requirement > or equal to 5 days Interpretation of Weight Loss (severe) >5% in 1 month #1 Nutrition Diagnosis Malnutrition Diagnosis Progress(for reassessment Continues documentation) Is patient on ventilator? No Is Patient Ambulatory and/or Out of Bed Yes REE-([facility]-ambulatory/OOB) [ 3038.919 NUTR.MSJOOB] Kcal/Kg value to use for calculation 18 Approximate Energy Requirements Using 2380 kcal/Kg Calculation Used for Recommendations Kcal/kg Additional Notes Protein: 140-176g (1.2-1.5g/kg AdjBW: 117kg) Fluid: 1 ml/kcal Nutrition Intervention Change Diet Order: Continue Add Supplement/Snack (indicate name/kcal Ensure Enlive BID /protein ) Provides kCal: 700 Provides Protein (gm) 40 Goal #1 Meet at least 75% of protein and energy needs via PO and ONS Anticipated Discharge Needs: Cardiac Follow-Up By: 12/17/20 Additional Comments FU for stable intakes
[2020-12-15] MEDS: METOPROLOL TARTRATE 25 MG TAB PO SCH ×2 (11:12→22:21)
[2020-12-15] MEDS: NIFEdipine XL 30 MG TAB PO SCH ×2 (11:13→22:21)
[2020-12-15] MEDS: guaiFENesin ER 600 MG TAB PO SCH ×2 (11:13→22:21)
[2020-12-15] MEDS: VALSARTAN 40 MG TAB PO SCH ×2 (11:17→22:21)
[2020-12-15] MEDS: ENOXAPARIN 40 MG/0.4 ML INJ SUB-Q SCH (22:21)
--- NOTE | 2020-12-16 08:27 | Progress Note ---
Assessment and Plan Assessment and plan: 35-year-old -[place] male with no significant past medical history comes in for nausea vomiting and generalized weakness. Also intermittent shortness of breath and subjective fever. Denies any cough. Patient went to an urgent care facility and had a negative [id number] Covid test, however pt found to have a low oxygen saturation and was sent to the emergency room for evaluation. Patient also has vomiting and diarrhea for the last 3 to 4 days. Currently admitted for positive Covid test during hospital stay, currently on Solu-Medrol and remdesivir, infectious disease following. Acute hypoxic respiratory failure COVID-19 pneumonia Bilateral pneumonia Acute kidney injury Sepsis Acute gastroenteritis Transaminitis Hyponatremia 12/06: pt continues to have SOB w/exertion, no diarrhea however decreased PO intake. COVID PCR+, infectious disease consulted. 12/07: pt without diarrhea, tolerating diet. on 4L NC O2, continues to have SOB 12/08 pt seen, no distress, on 4L O2. spoke with nurse to walk pt w/o O2, remdesivir started. pt states he's feeling better, would like to be weaned off O2 12/09 patient seen, on 5 L of oxygen. Spoke with respiratory, attempt to wean patient down. Patient has pending ambulatory oxygen study. 12/10. Patient still requiring 5 L of oxygen via nasal cannula. Check exercise pulse oximetry for further evaluation. Continue dexamethasone and remdesivir. Continue to trend inflammatory markers of ferritin, D-dimer, CRP and LDH. Prone positioning as possible. Continue Macrobid for UTI. Urine culture negative x24 hours 12/11. Patient still requiring 5 L of oxygen via nasal cannula. Check exercise pulse oximetry for further evaluation. Continue dexamethasone and remdesivir. Continue to trend inflammatory markers of ferritin, D-dimer, CRP and LDH. Prone positioning as possible. Continue Macrobid for UTI. Blood cultures remain negative. 12/12. Patient remains on 5 L of oxygen. Attempted to decrease O2 to 4 L and sats went down into the high 80s. Unable to tolerate titration. Presently on dexamethasone remdesivir. 12/13. Patient remains on 5 L of oxygen. Continue to wean oxygen supplementation as tolerated. Continue dexamethasone and remdesivir. Prone positioning as possible. Continue to trend inflammatory markers. Macrobid for UTI. 12/14. Patient's oxygen requirements have been decreased to 3 L. Check exercise pulse oximetry today. Dexamethasone (5/10). Completed remdesivir. Macrobid completed for UTI. Patient is uninsured but Case management reports patient can afford home oxygen at $75 per month 12/15. Patient still with desaturations with pulse oximetry with exercise on oxygen. Patient noted to desat to mid 80s on 3 L of oxygen. Completed remdesivir. Completed Macrobid for UTI. Continue dexamethasone. 12/16. Check exercise pulse oximetry today. Dexamethasone (6/10). Completed re mdesivir. Macrobid completed for UTI. Patient is uninsured but Case management reports patient can afford home oxygen at $75 per month History Interval history: No new issues overnight. Hospitalist Physical - Constitutional Vitals: Temp Pulse Resp BP Pulse Ox 98.2 F 86 17 124/86 98 12/16/20 05:16 12/16/20 05:16 12/16/20 05:16 12/16/20 05:16 12/16/20 05:16 General appearance: Present: no acute distress, well-nourished - EENT Eyes: Present: PERRL, EOM intact ENT: hearing intact, clear oral mucosa, dentition normal - Neck Neck: Present: supple, normal ROM - Respiratory Respiratory effort: normal Respiratory: bilateral: CTA - Cardiovascular Rhythm: regular Heart Sounds: Present: S1 & S2. Absent: gallop, rub - Extremities Extremities: no ischemia, No edema, Full ROM - Abdominal General gastrointestinal: soft, non-tender, non-distended, normal bowel sounds - Integumentary Integumentary: Present: clear, warm, dry - Neurologic Neurologic: CNII-XII intact, moves all extremities Results - Labs CBC & Chem 7: 12/07/20 06:13 12/10/20 07:33 Labs: Laboratory Last Values WBC 9.8 K/mm3 (4.5-11.0) 12/07/20 06:13 RBC 5.02 M/mm3 (3.65-5.03) 12/07/20 06:13 Hgb 14.6 gm/dl (11.8-15.2) 12/07/20 06:13 Hct 43.6 % (35.5-45.6) 12/07/20 06:13 MCV 87 fl (84-94) 12/07/20 06:13 MCH 29 pg (28-32) 12/07/20 06:13 MCHC 33 % (32-34) 12/07/20 06:13 RDW 14.4 % (13.2-15.2) 12/07/20 06:13 Plt Count 340 K/mm3 (140-440) 12/07/20 06:13 Lymph % (Auto) 24.4 % (13.4-35.0) 12/05/20 12:03 [place] % (Auto) 4.3 % (0.0-7.3) 12/05/20 12:03 Eos % (Auto) 0.0 % (0.0-4.3) 12/05/20 12:03 Baso % (Auto) 1.5 % (0.0-1.8) 12/05/20 12:03 Lymph # (Auto) 1.3 K/mm3 (1.2-5.4) 12/05/20 12:03 [place] # (Auto) 0.2 K/mm3 (0.0-0.8) 12/05/20 12:03 Eos # (Auto) 0.0 K/mm3 (0.0-0.4) 12/05/20 12:03 Baso # (Auto) 0.1 K/mm3 (0.0-0.1) 12/05/20 12:03 Seg Neutrophils % 69.8 % (40.0-70.0) 12/05/20 12:03 Seg Neutrophils # 3.9 K/mm3 (1.8-7.7) 12/05/20 12:03 PT 12.4 Sec. (12.2-14.9) 12/05/20 12:03 INR 0.94 (0.87-1.13) 12/05/20 12:03 D-Dimer 486.31 ng/mlDDU (0-234) H 12/08/20 13:43 VBG pH 7.386 (7.320-7.420) 12/05/20 12:03 Sodium 138 mmol/L (137-145) 12/10/20 07:33 Potassium 4.5 mmol/L (3.6-5.0) 12/10/20 07:33 Chloride 101.0 mmol/L (98-107) 12/10/20 07:33 Carbon Dioxide 27 mmol/L (22-30) 12/10/20 07:33 Anion Gap 15 mmol/L 12/10/20 07:33 BUN 19 mg/dL (9-20) 12/10/20 07:33 Creatinine 1.0 mg/dL (0.8-1.3) 12/10/20 07:33 Estimated GFR > 60 ml/min 12/10/20 07:33 BUN/Creatinine Ratio 19 % 12/10/20 07:33 Glucose 98 mg/dL (75-100) 12/10/20 07:33 Lactic Acid 1.60 mmol/L (0.7-2.0) 12/05/20 14:50 Calcium 8.9 mg/dL (8.4-10.2) 12/10/20 07:33 Ferritin 586.6 ng/mL (30.0-300.0) H 12/08/20 13:43 Total Bilirubin 0.40 mg/dL (0.1-1.2) 12/10/20 07:33 AST 29 units/L (5-40) 12/10/20 07:33 ALT 56 units/L (7-56) 12/10/20 07:33 Alkaline Phosphatase 27 units/L (35-129) L 12/10/20 07:33 Lactate Dehydrogenase 680 units/L (91-180) H 12/08/20 13:43 C-Reactive Protein 8.40 mg/dL (0.00-1.30) H 12/08/20 13:43 NT-Pro-B Natriuret Pep 9.40 pg/mL (0-450) 12/05/20 12:03 Total Protein 5.9 g/dL (6.3-8.2) L 12/10/20 07:33 Albumin 2.9 g/dL (3.9-5) L 12/10/20 07:33 Albumin/Globulin Ratio 1.0 % 12/10/20 07:33 Procalcitonin 0.07 ng/mL (<0.15) 12/07/20 06:13 Urine Color Z[place] (Yellow) 12/05/20 15:41 Urine Turbidity Slightly-cloudy (Clear) 12/05/20 15:41 Urine pH 5.0 (5.0-7.0) 12/05/20 15:41 Ur Specific [place] 1.023 (1.003-1.030) 12/05/20 15:41 Urine Protein 100 mg/dl mg/dL (Negative) 12/05/20 15:41 Urine Glucose (UA) Neg mg/dL (Negative) 12/05/20 15:41 Urine Ketones 20 mg/dL (Negative) 12/05/20 15:41 Urine Blood Lg (Negative) 12/05/20 15:41 Urine Nitrite Neg (Negative) 12/05/20 15:41 Urine Bilirubin Neg (Negative) 12/05/20 15:41 Urine Urobilinogen < 2.0 mg/dL (<2.0) 12/05/20 15:41 Ur Leukocyte Esterase Neg (Negative) 12/05/20 15:41 Urine WBC (Auto) 18.0 /HPF (0.0-6.0) H 12/05/20 15:41 Urine RBC (Auto) 2.0 /HPF (0.0-6.0) 12/05/20 15:41 U Epithel Cells (Auto) < 1.0 /HPF (0-13.0) 12/05/20 15:41 Urine Mucus 1+ /HPF 12/05/20 15:41 Coronavirus (PCR) Positive (Negative) A 12/06/20 Unknown Art/IV: Voiding Method Toilet Active Medications - Current Medications Current Medications: Generic Name Dose Route Start Last Admin Trade Name Freq PRN Reason Stop Dose Admin Acetaminophen 650 mg 12/05/20 23:16 12/07/20 22:17 Acetaminophen 325 Mg Tab PO 650 mg Q6H PRN Administration Pain, Mild (1-3) Enoxaparin Sodium 40 mg 12/06/20 22:00 12/15/20 22:21 Enoxaparin 40 Mg/0.4 Ml Inj SUB-Q 40 mg QDAY@2200 [facility] Administration Protocol Guaifenesin 600 mg 12/07/20 22:00 12/15/20 22:21 Guaifenesin Er 600 Mg Tab PO 600 mg BID [facility] Administration Labetalol HCl 10 mg 12/10/20 15:00 12/12/20 14:21 Labetalol 20 Mg/4 Ml Inj IV 10 mg Q3H PRN Administration Blood Pressure Metoprolol Tartrate 25 mg 12/09/20 22:00 12/15/20 22:21 Metoprolol Tartrate 25 Mg Tab PO 25 mg BID DEREK Administration Nifedipine 30 mg 12/10/20 15:00 12/15/20 22:21 Nifedipine Xl 30 Mg Tab PO 30 mg Q12HR DEREK Administration Valsartan 80 mg 12/09/20 22:00 12/15/20 22:21 Valsartan 40 Mg Tab PO 80 mg Q12HR DEREK Administration Nutrition/Malnutrition Assess - Dietary Evaluation Nutrition/Malnutrition Findings: Nutrition Notes Start: 12/06/20 09:06 Freq: Status: Active Protocol: Document 12/12/20 09:01 ADRYAN (Rec: 12/12/20 09:05 [id number]) Nutrition Notes Initial or Follow up Reassessment Current Diagnosis Acute Kidney Injury, Respiratory Failure Other Pertinent Diagnosis pneu, acute gastroenteritis Current Diet Cardiac Labs/Tests 12/11: BP 140/102 Pertinent Medications Reviewed Height 6 ft 3 in Weight 132.2 kg [place] Body Weight (kg) 89.09 BMI 36.4 Weight Status Morbidly Obese Subjective/Other Information FU for intakes and ONS. Pt with elevated BP since admission. Pt given low sodium diet education. Pt reports eating 75% of meals and 100% of 2 ONS. Percent of energy/protein needs met: 100%/74% Burn Absent Trauma Absent GI Symptoms None Cultural/Ethnic/Religion Belief No pork or beef Current % PO Good (75-100%) Minimum of two criteria Yes Energy Intake (severe) < or equal to 50% Estimated Energy Requirement > or equal to 5 days Interpretation of Weight Loss (severe) >5% in 1 month #1 Nutrition Diagnosis Malnutrition Diagnosis Progress(for reassessment Continues documentation) Is patient on ventilator? No Is Patient Ambulatory and/or Out of Bed Yes REE-([place]-ambulatory/OOB) [ 3038.919 NUTR.MSJOOB] Kcal/Kg value to use for calculation 18 Approximate Energy Requirements Using 2380 kcal/Kg Calculation Used for Recommendations Kcal/kg Additional Notes Protein: 140-176g (1.2-1.5g/kg AdjBW: 117kg) Fluid: 1 ml/kcal Nutrition Intervention Change Diet Order: Continue Add Supplement/Snack (indicate name/kcal Ensure Enlive BID /protein ) Provides kCal: 700 Provides Protein (gm) 40 Goal #1 Meet at least 75% of protein and energy needs via PO and ONS Anticipated Discharge Needs: Cardiac Follow-Up By: 12/17/20 Additional Comments FU for stable intakes
[2020-12-16] MEDS: METOPROLOL TARTRATE 25 MG TAB PO SCH ×2 (09:35→22:02)
[2020-12-16] MEDS: VALSARTAN 40 MG TAB PO SCH ×2 (09:36→22:02)
[2020-12-16] MEDS: guaiFENesin ER 600 MG TAB PO SCH ×2 (09:36→22:02)
[2020-12-16] MEDS: NIFEdipine XL 30 MG TAB PO SCH ×2 (09:36→22:02)
[2020-12-16] MEDS: ACETAMINOPHEN 325 MG TAB PO PRN (22:01)
[2020-12-16] MEDS: ENOXAPARIN 40 MG/0.4 ML INJ SUB-Q SCH (22:02)
--- NOTE | 2020-12-17 07:34 | Progress Note ---
Assessment and Plan Assessment and plan: 35-year-old -[place]ish male with no significant past medical history comes in for nausea vomiting and generalized weakness. Also intermittent shortness of breath and subjective fever. Denies any cough. Patient went to an urgent care facility and had a negative [id number] Covid test, however pt found to have a low oxygen saturation and was sent to the emergency room for evaluation. Patient also has vomiting and diarrhea for the last 3 to 4 days. Currently admitted for positive Covid test during hospital stay, currently on Solu-Medrol and remdesivir, infectious disease following. Acute hypoxic respiratory failure COVID-19 pneumonia Bilateral pneumonia Acute kidney injury Sepsis Acute gastroenteritis Transaminitis Hyponatremia 12/06: pt continues to have SOB w/exertion, no diarrhea however decreased PO intake. COVID PCR+, infectious disease consulted. 12/07: pt without diarrhea, tolerating diet. on 4L NC O2, continues to have SOB 12/08 pt seen, no distress, on 4L O2. spoke with nurse to walk pt w/o O2, remdesivir started. pt states he's feeling better, would like to be weaned off O2 12/09 patient seen, on 5 L of oxygen. Spoke with respiratory, attempt to wean patient down. Patient has pending ambulatory oxygen study. 12/10. Patient still requiring 5 L of oxygen via nasal cannula. Check exercise pulse oximetry for further evaluation. Continue dexamethasone and remdesivir. Continue to trend inflammatory markers of ferritin, D-dimer, CRP and LDH. Prone positioning as possible. Continue Macrobid for UTI. Urine culture negative x24 hours 12/11. Patient still requiring 5 L of oxygen via nasal cannula. Check exercise pulse oximetry for further evaluation. Continue dexamethasone and remdesivir. Continue to trend inflammatory markers of ferritin, D-dimer, CRP and LDH. Prone positioning as possible. Continue Macrobid for UTI. Blood cultures remain negative. 12/12. Patient remains on 5 L of oxygen. Attempted to decrease O2 to 4 L and sats went down into the high 80s. Unable to tolerate titration. Presently on dexamethasone remdesivir. 12/13. Patient remains on 5 L of oxygen. Continue to wean oxygen supplementation as tolerated. Continue dexamethasone and remdesivir. Prone positioning as possible. Continue to trend inflammatory markers. Macrobid for UTI. 12/14. Patient's oxygen requirements have been decreased to 3 L. Check exercise pulse oximetry today. Dexamethasone (/10). Completed remdesivir. Macrobid completed for UTI. Patient is uninsured but Case management reports patient can afford home oxygen at $75 per month 12/15. Patient still with desaturations with pulse oximetry with exercise on oxygen. Patient noted to desat to mid 80s on 3 L of oxygen. Completed remdesivir. Completed Macrobid for UTI. Continue dexamethasone. 12/16. Check exercise pulse oximetry today. Dexamethasone (/10). Completed re mdesivir. Macrobid completed for UTI. Patient is uninsured but Case management reports patient can afford home oxygen at $75 per month 12/17/2020; patient need home oxygen. Will discuss with case management for oxygen arrangement. Patient is on dexamethasone 03/08. Completed remdesivir. Patient completed will be for UTI. Patient was tachycardic yesterday and CTA was ordered and result is pending. Disposition; can be discharged once CTA chest result is obtained and oxygen is arranged. Patient oxygen saturation dropped down yesterday after 6-minute walk to 84% and recovered to 92% with 3 L of oxygen. CTA this was done this morning and patient has bilateral PE with moderate right ventricular strain. Patient placed on heparin drip, discussed with vascular surgery Dr. Armenta. Echo was ordered. BNP and troponin ordered by vascular surgery. Continue patient care and disposition is per clinical course. History Interval history: Patient was seen and evaluated this morning No new complaints, patient was on 3L of oxygen Denied chest pain Hospitalist Physical - Physical exam Narrative exam: Patient is on 3 L of oxygen The patient is morbidly obese. Vital signs as documented. Head exam is unremarkable. No scleral icterus . Neck is without jugular venous distension, thyromegaly, or carotid bruits. Lungs are clear to auscultation. Cardiac exam reveals regular rate and Rhythm. Abdominal exam reveals normal bowel sounds, nontender, no organomegaly. Extremities are nonedematous and both femoral and pedal pulses are normal. CLAIMS COUNSEL: Alert and oriented 3. No focal weakness. - Constitutional Vitals: Temp Pulse Resp BP Pulse Ox 98.2 F 82 20 132/78 94 12/16/20 23:51 12/16/20 23:51 12/16/20 23:51 12/16/20 23:51 12/16/20 23:51 General appearance: Present: no acute distress, well-nourished Results - Labs CBC & Chem 7: 12/17/20 10:14 12/10/20 07:33 Labs: Laboratory Last Values WBC 9.8 K/mm3 (4.5-11.0) 12/07/20 06:13 RBC 5.02 M/mm3 (3.65-5.03) 12/07/20 06:13 Hgb 14.6 gm/dl (11.8-15.2) 12/07/20 06:13 Hct 43.6 % (35.5-45.6) 12/07/20 06:13 MCV 87 fl (84-94) 12/07/20 06:13 MCH 29 pg (28-32) 12/07/20 06:13 MCHC 33 % (32-34) 12/07/20 06:13 RDW 14.4 % (13.2-15.2) 12/07/20 06:13 Plt Count 340 K/mm3 (140-440) 12/07/20 06:13 Lymph % (Auto) 24.4 % (13.4-35.0) 12/05/20 12:03 Delta % (Auto) 4.3 % (0.0-7.3) 12/05/20 12:03 Eos % (Auto) 0.0 % (0.0-4.3) 12/05/20 12:03 Baso % (Auto) 1.5 % (0.0-1.8) 12/05/20 12:03 Lymph # (Auto) 1.3 K/mm3 (1.2-5.4) 12/05/20 12:03 Delta # (Auto) 0.2 K/mm3 (0.0-0.8) 12/05/20 12:03 Eos # (Auto) 0.0 K/mm3 (0.0-0.4) 12/05/20 12:03 Baso # (Auto) 0.1 K/mm3 (0.0-0.1) 12/05/20 12:03 Seg Neutrophils % 69.8 % (40.0-70.0) 12/05/20 12:03 Seg Neutrophils # 3.9 K/mm3 (1.8-7.7) 12/05/20 12:03 PT 12.4 Sec. (12.2-14.9) 12/05/20 12:03 INR 0.94 (0.87-1.13) 12/05/20 12:03 D-Dimer 486.31 ng/mlDDU (0-234) H 12/08/20 13:43 VBG pH 7.386 (7.320-7.420) 12/05/20 12:03 Sodium 138 mmol/L (137-145) 12/10/20 07:33 Potassium 4.5 mmol/L (3.6-5.0) 12/10/20 07:33 Chloride 101.0 mmol/L (98-107) 12/10/20 07:33 Carbon Dioxide 27 mmol/L (22-30) 12/10/20 07:33 Anion Gap 15 mmol/L 12/10/20 07:33 BUN 19 mg/dL (9-20) 12/10/20 07:33 Creatinine 1.0 mg/dL (0.8-1.3) 12/10/20 07:33 Estimated GFR > 60 ml/min 12/10/20 07:33 BUN/Creatinine Ratio 19 % 12/10/20 07:33 Glucose 98 mg/dL (75-100) 12/10/20 07:33 Lactic Acid 1.60 mmol/L (0.7-2.0) 12/05/20 14:50 Calcium 8.9 mg/dL (8.4-10.2) 12/10/20 07:33 Ferritin 586.6 ng/mL (30.0-300.0) H 12/08/20 13:43 Total Bilirubin 0.40 mg/dL (0.1-1.2) 12/10/20 07:33 AST 29 units/L (5-40) 12/10/20 07:33 ALT 56 units/L (7-56) 12/10/20 07:33 Alkaline Phosphatase 27 units/L (35-129) L 12/10/20 07:33 Lactate Dehydrogenase 680 units/L (91-180) H 12/08/20 13:43 C-Reactive Protein 8.40 mg/dL (0.00-1.30) H 12/08/20 13:43 NT-Pro-B Natriuret Pep 9.40 pg/mL (0-450) 12/05/20 12:03 Total Protein 5.9 g/dL (6.3-8.2) L 12/10/20 07:33 Albumin 2.9 g/dL (3.9-5) L 12/10/20 07:33 Albumin/Globulin Ratio 1.0 % 12/10/20 07:33 Procalcitonin 0.07 ng/mL (<0.15) 12/07/20 06:13 Urine Color Zuleima (Yellow) 12/05/20 15:41 Urine Turbidity Slightly-cloudy (Clear) 12/05/20 15:41 Urine pH 5.0 (5.0-7.0) 12/05/20 15:41 Ur Specific [place] 1.023 (1.003-1.030) 12/05/20 15:41 Urine Protein 100 mg/dl mg/dL (Negative) 12/05/20 15:41 Urine Glucose (UA) Neg mg/dL (Negative) 12/05/20 15:41 Urine Ketones 20 mg/dL (Negative) 12/05/20 15:41 Urine Blood Lg (Negative) 12/05/20 15:41 Urine Nitrite Neg (Negative) 12/05/20 15:41 Urine Bilirubin Neg (Negative) 12/05/20 15:41 Urine Urobilinogen < 2.0 mg/dL (<2.0) 12/05/20 15:41 Ur Leukocyte Esterase Neg (Negative) 12/05/20 15:41 Urine WBC (Auto) 18.0 /HPF (0.0-6.0) H 12/05/20 15:41 Urine RBC (Auto) 2.0 /HPF (0.0-6.0) 12/05/20 15:41 U Epithel Cells (Auto) < 1.0 /HPF (0-13.0) 12/05/20 15:41 Urine Mucus 1+ /HPF 12/05/20 15:41 Coronavirus (PCR) Positive (Negative) A 12/06/20 Unknown Art/IV: Voiding Method Toilet Active Medications - Current Medications Current Medications: Generic Name Dose Route Start Last Admin Trade Name Freq PRN Reason Stop Dose Admin Acetaminophen 650 mg 12/05/20 23:16 12/16/20 22:01 Acetaminophen 325 Mg Tab PO 650 mg Q6H PRN Administration Pain, Mild (1-3) Enoxaparin Sodium 40 mg 12/06/20 22:00 12/16/20 22:02 Enoxaparin 40 Mg/0.4 Ml Inj SUB-Q 40 mg QDAY@2200 DEREK Administration Protocol Guaifenesin 600 mg 12/07/20 22:00 12/16/20 22:02 Guaifenesin Er 600 Mg Tab PO 600 mg BID DEREK Administration Labetalol HCl 10 mg 12/10/20 15:00 12/12/20 14:21 Labetalol 20 Mg/4 Ml Inj IV 10 mg Q3H PRN Administration Blood Pressure Metoprolol Tartrate 25 mg 12/09/20 22:00 12/16/20 22:02 Metoprolol Tartrate 25 Mg Tab PO 25 mg BID DEREK Administration Nifedipine 30 mg 12/10/20 15:00 12/16/20 22:02 Nifedipine Xl 30 Mg Tab PO 30 mg Q12HR DEREK Administration Valsartan 80 mg 12/09/20 22:00 12/16/20 22:02 Valsartan 40 Mg Tab PO 80 mg Q12HR DEREK Administration Nutrition/Malnutrition Assess - Dietary Evaluation Nutrition/Malnutrition Findings: Nutrition Notes Start: 12/06/20 09 :06 Freq: Status: Active Protocol: Document 12/12/20 09:01 ADRYAN (Rec: 12/12/20 09:05 ADRYAN [id number]) Nutrition Notes Initial or Follow up Reassessment Current Diagnosis Acute Kidney Injury, Respiratory Failure Other Pertinent Diagnosis pneu, acute gastroenteritis Current Diet Cardiac Labs/Tests 12/11: BP 140/102 Pertinent Medications Reviewed Height 6 ft 3 in Weight 132.2 kg [place] Body Weight (kg) 89.09 BMI 36.4 Weight Status Morbidly Obese Subjective/Other Information FU for intakes and ONS. Pt with elevated BP since admission. Pt given low sodium diet education. Pt reports eating 75% of meals and 100% of 2 ONS. Percent of energy/protein needs met: 100%/74% Burn Absent Trauma Absent GI Symptoms None Cultural/Ethnic/Mormonism Belief No pork or beef Current % PO Good (75-100%) Minimum of two criteria Yes Energy Intake (severe) < or equal to 50% Estimated Energy Requirement > or equal to 5 days Interpretation of Weight Loss (severe) >5% in 1 month #1 Nutrition Diagnosis Malnutrition Diagnosis Progress(for reassessment Continues documentation) Is patient on ventilator? No Is Patient Ambulatory and/or Out of Bed Yes REE-(Arroyo-St. Jeor-ambulatory/OOB) [ 3038.919 [id number]] Kcal/Kg value to use for calculation 18 Approximate Energy Requirements Using 2380 kcal/Kg Calculation Used for Recommendations Kcal/kg Additional Notes Protein: 140-176g (1.2-1.5g/kg AdjBW: 117kg) Fluid: 1 ml/kcal Nutrition Intervention Change Diet Order: Continue Add Supplement/Snack (indicate name/kcal Ensure Enlive BID /protein ) Provides kCal: 700 Provides Protein (gm) 40 Goal #1 Meet at least 75% of protein and energy needs via PO and ONS Anticipated Discharge Needs: Cardiac Follow-Up By: 12/17/20 Additional Comments FU for stable intakes
[2020-12-17] MEDS: METOPROLOL TARTRATE 25 MG TAB PO SCH ×2 (09:25→21:51)
[2020-12-17] MEDS: NIFEdipine XL 30 MG TAB PO SCH ×2 (09:25→21:51)
[2020-12-17] MEDS: guaiFENesin ER 600 MG TAB PO SCH ×2 (09:25→21:51)
[2020-12-17] MEDS: VALSARTAN 40 MG TAB PO SCH ×2 (09:26→21:51)
--- NOTE | 2020-12-17 09:34 | Cat Scan Report ---
CTA CHEST WITH CONTRAST INDICATION / CLINICAL INFORMATION: R/O PE. TECHNIQUE: Axial CT images were obtained through the chest after injection of 100 cc Omni 350 IV cont rast. 3 plane MIP and/or 3D reconstructions were produced. All CT scans at this location are performe d using CT dose reduction for ALARA by means of automated exposure control. COMPARISON: Chest radiograph 12/05/2020 FINDINGS: PULMONARY ARTERIES: Satisfactory opacification of the pulmonary arteries with filling defects present at the distal bilateral main pulmonary arteries extending into the lobar branches. Overall burden of embolism is moderate. THORACIC AORTA: No significant abnormality. HEART: There is some flattening of the interventricular septum with normal LV:RV ratio. CORONARY ARTERY CALCIFICATION: None. MEDIASTINUM / CHUNG: Mild hilar adenopathy worst at the right hilum measuring up to 1.4 cm. PLEURA: No pleural effusion. No pneumothorax. LUNGS: Patchy and confluent pulmonary opacities, overall moderate, and demonstrate a peripheral predo minance. ADDITIONAL FINDINGS: None. UPPER ABDOMEN: No acute findings. SKELETAL STRUCTURES: No significant osseous abnormality. IMPRESSION: 1. Pulmonary thromboembolism present at the distal bilateral main pulmonary arteries extending throug hout the lobar branches. Norman of embolism is moderate, and there is some flattening of the interven tricular septum which can be seen in the setting of early right heart strain. Normal LV: RV ratio. 2. Moderate patchy and confluent pulmonary groundglass opacities with a peripheral predominance. Find ings suggestive of atypical/viral pneumonia. Recommend clinical correlation and continued follow-up u ntil resolution. 3. Mild hilar adenopathy. CRITICAL RESULT: Time of Discovery (SUCTION PLATE CARRIER CLEANER/CDT): 0815 Time of Communication (SUCTION PLATE CARRIER CLEANER/CDT): 0825 Licensed Practitioner Receiving Report: Felicia Glover RN Read-Back Performed: Yes. Signer Name: José Miguel Schroeder MD Signed: 12/17/2020 9:29 AM Workstation Name: [id number]
[2020-12-17] MEDS ORDERED: HEPARIN 10,000 UNITS/10 ML VIAL IV ONE ×2 (09:55)
[2020-12-17] MEDS ORDERED: HEPARIN 10,000 UNITS/10 ML VIAL IV PRN (09:55)
[2020-12-17 10:21] LABS: Hematocrit 43.8 % (35.5-45.6); Hemoglobin 14.8 gm/dl (11.8-15.2)
[2020-12-17 10:31] LABS: INR 1.03 (0.87-1.13)
[2020-12-17 10:32] LABS: Partial Thromboplastin Time 30.4 Sec. (24.2-36.6)
[2020-12-17] MEDS: HEPARIN/ 0.45% NACL DRIP 25,000 UNIT/500 ML BAG IV SCH (10:40)
--- NOTE | 2020-12-17 15:58 | Consultation ---
History of Present Illness - Reason for Consult Consult date: 12/17/20 PE Requesting physician: DEYANIRA JUNIOR - History of Present Illness 35 years old male with no significant medical history admitted on 12/05/2020 secondary to generalized weakness, nausea, vomiting, diarrhea and subjective fever for 4 days. Patient denies cough. Patient was seen in an urgent care fa cility where he was found hypoxic. Patient was diagnosed with Covid pneumonia. Patient has been hospitalized with Covid pneumonia and was found to have moderate to high clot burden on CT pulmonary angiogram. BNP and troponins are within normal limits. On CT scan, there is borderline right heart strain. Echo pending. 1 month prior to admission patient had a drive from [place]. Past Medical History Previous Medical History?: No Surgical History Past Surgical History?: No Social History Smoking Status: Never Smoker Substance Use Type: None Family history Hypertension Medications and Allergies Allergies Allergy/AdvReac Type Severity Reaction Status Date / Time No Known Allergies Allergy Unverified 12/05/20 11:47 Home Medications Medication Instructions Recorded Confirmed Last Taken Type No Known Home Medications [No 12/05/20 12/05/20 Unknown History Reported Home Medications] Active Meds: Active Medications Acetaminophen (Acetaminophen 325 Mg Tab) 650 mg PO Q6H PRN PRN Reason: Pain, Mild (1-3) Last Admin: 12/16/20 22:01 Dose: 650 mg Documented by: Guaifenesin (Guaifenesin Er 600 Mg Tab) 600 mg PO BID [facility] Last Admin: 12/17/20 09:25 Dose: 600 mg Documented by: Heparin Sodium (Porcine) (Heparin 10,000 Units/10 Ml Vial) 5,000 unit IV Q6H PRN PRN Reason: Anti-Xa Assay < 0.1 units/ml Heparin Sodium/Sodium Chloride (Heparin/ 0.45% Nacl-25,000 Unit/500 Ml) 25,000 unit in 500 mls @ 30 mls/hr IV TITR [facility]; Protocol Last Admin: 12/17/20 10:40 Dose: 1,500 units/hr, 30 mls/hr Documented by: Labetalol HCl (Labetalol 20 Mg/4 Ml Inj) 10 mg IV Q3H PRN PRN Reason: Blood Pressure Last Admin: 12/12/20 14:21 Dose: 10 mg Documented by: Metoprolol Tartrate (Metoprolol Tartrate 25 Mg Tab) 25 mg PO BID [facility] Last Admin: 12/17/20 09:25 Dose: 25 mg Documented by: Nifedipine (Nifedipine Xl 30 Mg Tab) 30 mg PO Q12HR [facility] Last Admin: 12/17/20 09:25 Dose: 30 mg Documented by: Valsartan (Valsartan 40 Mg Tab) 80 mg PO Q12HR [facility] Last Admin: 12/17/20 09:26 Dose: 80 mg Documented by: Review of Systems All systems: negative (see HPI) Exam - Constitutional Vitals: Temp Pulse Resp BP Pulse Ox 97.6 F 76 18 138/73 94 12/17/20 12:00 12/17/20 12:00 12/17/20 12:00 12/17/20 12:00 12/17/20 10:00 General appearance: Present: no acute distress - EENT Eyes: Present: EOM intact ENT: hearing intact - Respiratory Respiratory effort: other (on supplementary oxygen, but not labored, speaking without issue) - Extremities Extremities: pulses intact, normal temperature, normal color Extremity abnormal: edema (Mild left lower extremity swelling) - Abdominal General gastrointestinal: Present: soft, non-tender - Psychiatric Psychiatric: appropriate mood/affect, cooperative Results - Labs CBC & Chem 7: 12/17/20 10:14 12/10/20 07:33 - Imaging and Cardiology CT scan - chest: report reviewed, image reviewed Assessment and Plan 35-year-old male with Covid pneumonia with moderate to large clot burden on CT pulmonary angiogram. BNP and troponin are negative. Moderate to large clot burden on CT scan, but biomarkers are negative and there is borderline right heart strain on CT. Echo pending. Patient has submassive pulmonary embolism, intermediate low risk stratification. No need for endovascular therapy. Recommend anticoagulation for 3 months. Discussed with patient that if he has a n additional thromboembolic event then he will need anticoagulation for life.
[2020-12-17] MEDS ORDERED: WARFARIN 7.5 MG TAB PO SCH (17:00)
[2020-12-18] MEDS: HEPARIN/ 0.45% NACL DRIP 25,000 UNIT/500 ML BAG IV SCH (02:30)
--- NOTE | 2020-12-18 08:07 | Progress Note ---
Assessment and Plan Assessment and plan: 35-year-old -Australian male with no significant past medical history comes in for nausea vomiting and generalized weakness. Also intermittent shortness of breath and subjective fever. Denies any cough. Patient went to an urgent care facility and had a negative kndlo-[id number] Covid test, however pt found to have a low oxygen saturation and was sent to the emergency room for evaluation. Patient also has vomiting and diarrhea for the last 3 to 4 days. Currently admitted for positive Covid test during hospital stay, currently on Solu-Medrol and remdesivir, infectious disease following. Acute hypoxic respiratory failure COVID-19 pneumonia Bilateral pneumonia Acute kidney injury Sepsis Acute gastroenteritis Transaminitis Hyponatremia 12/06: pt continues to have SOB w/exertion, no diarrhea however decreased PO intake. COVID PCR+, infectious disease consulted. 12/07: pt without diarrhea, tolerating diet. on 4L NC O2, continues to have SOB 12/08 pt seen, no distress, on 4L O2. spoke with nurse to walk pt w/o O2, remdesivir started. pt states he's feeling better, would like to be weaned off O2 12/09 patient seen, on 5 L of oxygen. Spoke with respiratory, attempt to wean patient down. Patient has pending ambulatory oxygen study. 12/10. Patient still requiring 5 L of oxygen via nasal cannula. Check exercise pulse oximetry for further evaluation. Continue dexamethasone and remdesivir. Continue to trend inflammatory markers of ferritin, D-dimer, CRP and LDH. Prone positioning as possible. Continue Macrobid for UTI. Urine culture negative x24 hours 12/11. Patient still requiring 5 L of oxygen via nasal cannula. Check exercise pulse oximetry for further evaluation. Continue dexamethasone and remdesivir. Continue to trend inflammatory markers of ferritin, D-dimer, CRP and LDH. Prone positioning as possible. Continue Macrobid for UTI. Blood cultures remain negative. 12/12. Patient remains on 5 L of oxygen. Attempted to decrease O2 to 4 L and sats went down into the high 80s. Unable to tolerate titration. Presently on dexamethasone remdesivir. 12/13. Patient remains on 5 L of oxygen. Continue to wean oxygen supplementation as tolerated. Continue dexamethasone and remdesivir. Prone positioning as possible. Continue to trend inflammatory markers. Macrobid for UTI. 12/14. Patient's oxygen requirements have been decreased to 3 L. Check exercise pulse oximetry today. Dexamethasone (5/10). Completed remdesivir. Macrobid completed for UTI. Patient is uninsured but Case management reports patient can afford home oxygen at $75 per month 12/15. Patient still with desaturations with pulse oximetry with exercise on oxygen. Patient noted to desat to mid 80s on 3 L of oxygen. Completed remdesivir. Completed Macrobid for UTI. Continue dexamethasone. 12/16. Check exercise pulse oximetry today. Dexamethasone (6/10). Completed re mdesivir. Macrobid completed for UTI. Patient is uninsured but Case management reports patient can afford home oxygen at $75 per month 12/17/2020; patient need home oxygen. Will discuss with case management for oxygen arrangement. Patient is on dexamethasone 03/08. Completed remdesivir. Patient completed will be for UTI. Patient was tachycardic yesterday and CTA was ordered and result is pending. Disposition; can be discharged once CTA chest result is obtained and oxygen is arranged. Patient oxygen saturation dropped down yesterday after 6-minute walk to 84% and recovered to 92% with 3 L of oxygen. CTA this was done this morning and patient has bilateral PE with moderate right ventricular strain. Patient placed on heparin drip, discussed with vascular surgery Dr. Armenta. Echo was ordered. BNP and troponin ordered by vascular surgery. Continue patient care and disposition is per clinical course. 12/18/2020; patient has PE and was evaluated by vascular surgery for right ventricular strain and he was evaluated and no intervention needed at this time. Continue with anticoagulation. BNP and troponin was negative. Echo was done and results pending. Bilateral Doppler ultrasound was ordered. Patient is uninsured and need to be on Coumadin. I have a long discussion with the patient and patient agreed to stay until his INR is therapeutic. History Interval history: Patient was seen and evaluated this morning No new complaints, patient was on 3L of oxygen Denied chest pain Hospitalist Physical - Physical exam Narrative exam: Patient is on 3 L of oxygen The patient is morbidly obese. Vital signs as documented. Head exam is unremarkable. No scleral icterus . Neck is without jugular venous distension, thyromegaly, or carotid bruits. Lungs are clear to auscultation. Cardiac exam reveals regular rate and Rhythm. Abdominal exam reveals normal bowel sounds, nontender, no organomegaly. Extremities are nonedematous and both femoral and pedal pulses are normal. LIVESTOCK AGENT: Alert and oriented 3. No focal weakness. - Constitutional Vitals: Temp Pulse Resp BP Pulse Ox 100.0 F H 120 H 20 143/100 95 12/17/20 21:49 12/17/20 22:03 12/17/20 22:03 12/17/20 21:49 12/17/20 22:03 General appearance: Present: no acute distress HEART Score - HEART Score Troponin: Troponin T < 0.010 ng/mL (0.00-0.029) 12/17/20 14:58 Results - Labs CBC & Chem 7: 12/17/20 10:14 12/10/20 07:33 Labs: Laboratory Last Values WBC 9.8 K/mm3 (4.5-11.0) 12/07/20 06:13 RBC 5.02 M/mm3 (3.65-5.03) 12/07/20 06:13 Hgb 14.8 gm/dl (11.8-15.2) 12/17/20 10:14 Hct 43.8 % (35.5-45.6) 12/17/20 10:14 MCV 87 fl (84-94) 12/07/20 06:13 MCH 29 pg (28-32) 12/07/20 06:13 MCHC 33 % (32-34) 12/07/20 06:13 RDW 14.4 % (13.2-15.2) 12/07/20 06:13 Plt Count 440 K/mm3 (140-440) 12/17/20 10:14 Lymph % (Auto) 24.4 % (13.4-35.0) 12/05/20 12:03 [place] % (Auto) 4.3 % (0.0-7.3) 12/05/20 12:03 Eos % (Auto) 0.0 % (0.0-4.3) 12/05/20 12:03 Baso % (Auto) 1.5 % (0.0-1.8) 12/05/20 12:03 Lymph # (Auto) 1.3 K/mm3 (1.2-5.4) 12/05/20 12:03 [place] # (Auto) 0.2 K/mm3 (0.0-0.8) 12/05/20 12:03 Eos # (Auto) 0.0 K/mm3 (0.0-0.4) 12/05/20 12:03 Baso # (Auto) 0.1 K/mm3 (0.0-0.1) 12/05/20 12:03 Seg Neutrophils % 69.8 % (40.0-70.0) 12/05/20 12:03 Seg Neutrophils # 3.9 K/mm3 (1.8-7.7) 12/05/20 12:03 PT 13.4 Sec. (12.2-14.9) 12/17/20 10:14 INR 1.03 (0.87-1.13) 12/17/20 10:14 APTT 30.4 Sec. (24.2-36.6) 12/17/20 10:14 D-Dimer 486.31 ng/mlDDU (0-234) H 12/08/20 13:43 Heparin Anti-Xa Level 0.28 U.I./ml (0.3-0.7) L 12/18/20 00:47 VBG pH 7.386 (7.320-7.420) 12/05/20 12:03 Sodium 138 mmol/L (137-145) 12/10/20 07:33 Potassium 4.5 mmol/L (3.6-5.0) 12/10/20 07:33 Chloride 101.0 mmol/L (98-107) 12/10/20 07:33 Carbon Dioxide 27 mmol/L (22-30) 12/10/20 07:33 Anion Gap 15 mmol/L 12/10/20 07:33 BUN 19 mg/dL (9-20) 12/10/20 07:33 Creatinine 1.0 mg/dL (0.8-1.3) 12/10/20 07:33 Estimated GFR > 60 ml/min 12/10/20 07:33 BUN/Creatinine Ratio 19 % 12/10/20 07:33 Glucose 98 mg/dL (75-100) 12/10/20 07:33 Lactic Acid 1.60 mmol/L (0.7-2.0) 12/05/20 14:50 Calcium 8.9 mg/dL (8.4-10.2) 12/10/20 07:33 Ferritin 586.6 ng/mL (30.0-300.0) H 12/08/20 13:43 Total Bilirubin 0.40 mg/dL (0.1-1.2) 12/10/20 07:33 AST 29 units/L (5-40) 12/10/20 07:33 ALT 56 units/L (7-56) 12/10/20 07:33 Alkaline Phosphatase 27 units/L (35-129) L 12/10/20 07:33 Lactate Dehydrogenase 680 units/L (91-180) H 12/08/20 13:43 Troponin T < 0.010 ng/mL (0.00-0.029) 12/17/20 14:58 C-Reactive Protein 8.40 mg/dL (0.00-1.30) H 12/08/20 13:43 NT-Pro-B Natriuret Pep 22.93 pg/mL (0-450) 12/17/20 14:58 Total Protein 5.9 g/dL (6.3-8.2) L 12/10/20 07:33 Albumin 2.9 g/dL (3.9-5) L 12/10/20 07:33 Albumin/Globulin Ratio 1.0 % 12/10/20 07:33 Procalcitonin 0.07 ng/mL (<0.15) 12/07/20 06:13 Urine Color [place] (Yellow) 12/05/20 15:41 Urine Turbidity Slightly-cloudy (Clear) 12/05/20 15:41 Urine pH 5.0 (5.0-7.0) 12/05/20 15:41 Ur Specific [place] 1.023 (1.003-1.030) 12/05/20 15:41 Urine Protein 100 mg/dl mg/dL (Negative) 12/05/20 15:41 Urine Glucose (UA) Neg mg/dL (Negative) 12/05/20 15:41 Urine Ketones 20 mg/dL (Negative) 12/05/20 15:41 Urine Blood Lg (Negative) 12/05/20 15:41 Urine Nitrite Neg (Negative) 12/05/20 15:41 Urine Bilirubin Neg (Negative) 12/05/20 15:41 Urine Urobilinogen < 2.0 mg/dL (<2.0) 12/05/20 15:41 Ur Leukocyte Esterase Neg (Negative) 12/05/20 15:41 Urine WBC (Auto) 18.0 /HPF (0.0-6.0) H 12/05/20 15:41 Urine RBC (Auto) 2.0 /HPF (0.0-6.0) 12/05/20 15:41 U Epithel Cells (Auto) < 1.0 /HPF (0-13.0) 12/05/20 15:41 Urine Mucus 1+ /HPF 12/05/20 15:41 Coronavirus (PCR) Positive (Negative) A 12/06/20 Unknown Art/IV: Voiding Method Toilet Active Medications - Current Medications Current Medications: Generic Name Dose Route Start Last Admin Trade Name Freq PRN Reason Stop Dose Admin Acetaminophen 650 mg 12/05/20 23:16 12/16/20 22:01 Acetaminophen 325 Mg Tab PO 650 mg Q6H PRN Administration Pain, Mild (1-3) Guaifenesin 600 mg 12/07/20 22:00 12/17/20 21:51 Guaifenesin Er 600 Mg Tab PO 600 mg BID DEREK Administration Heparin Sodium (Porcine) 5,000 unit 12/17/20 09:55 Heparin 10,000 Units/10 Ml Vial IV Q6H PRN Anti-Xa Assay < 0.1 units/ml Heparin Sodium/Sodium Chloride 25,000 unit in 500 mls @ 30 mls/hr 12/17/20 10:00 12/18/20 02:30 Heparin/ 0.45% Nacl-25,000 Unit/500 Ml IV 1,800 units/hr TITR DEREK 36 mls/hr Administration Protocol 1,500 UNITS/HR Labetalol HCl 10 mg 12/10/20 15:00 12/12/20 14:21 Labetalol 20 Mg/4 Ml Inj IV 10 mg Q3H PRN Administration Blood Pressure Metoprolol Tartrate 25 mg 12/09/20 22:00 12/17/20 21:51 Metoprolol Tartrate 25 Mg Tab PO 25 mg BID DEREK Administration Nifedipine 30 mg 12/10/20 15:00 12/17/20 21:51 Nifedipine Xl 30 Mg Tab PO 30 mg Q12HR DEREK Administration Valsartan 80 mg 12/09/20 22:00 12/17/20 21:51 Valsartan 40 Mg Tab PO 80 mg Q12HR DEREK Administration Warfarin Sodium 7.5 mg 12/17/20 17:00 12/17/20 17:26 Warfarin 7.5 Mg Tab PO 7.5 mg DAILY@1700 DEREK Administration Nutrition/Malnutrition Assess - Dietary Evaluation Nutrition/Malnutrition Findings: Nutrition Notes Start: 12/06/20 09:06 Freq: Status: Active Protocol: Document 12/17/20 09:51 MK (Rec: 12/17/20 09:54 MK [id number]) Nutrition Notes Initial or Follow up Reassessment Current Diagnosis Acute Kidney Injury, Respiratory Failure Other Pertinent Diagnosis pneu, acute gastroenteritis Current Diet Cardiac Labs/Tests Reviewed Pertinent Medications Reviewed Height 6 ft 3 in Weight 133 kg [place] Body Weight (kg) 89.09 BMI 36.6 Weight Status Morbidly Obese Subjective/Other Information FU for intakes. Pt reports eating 75-90% of meals and 100 % of 2 ONS. Percent of energy/protein needs met: 100%/77% Burn Absent Trauma Absent GI Symptoms None Cultural/Ethnic/Anglican Belief No pork or beef Current % PO Good (75-100%) Minimum of two criteria Yes Energy Intake (severe) < or equal to 50% Estimated Energy Requirement > or equal to 5 days Interpretation of Weight Loss (severe) >5% in 1 month #1 Nutrition Diagnosis Malnutrition Diagnosis Progress(for reassessment Continues documentation) Is patient on ventilator? No Is Patient Ambulatory and/or Out of Bed Yes REE-([facility]-ambulatory/OOB) [ 3049.319 NUTR.MSJOOB] Kcal/Kg value to use for calculation 17 Approximate Energy Requirements Using 2261 kcal/Kg Calculation Used for Recommendations Kcal/kg Additional Notes Protein: 140-176g (1.2-1.5g/kg AdjBW: 117kg) Fluid: 1 ml/kcal Nutrition Intervention Change Diet Order: Continue Add Supplement/Snack (indicate name/kcal Ensure Enlive BID /protein ) Provides kCal: 700 Provides Protein (gm) 40 Goal #1 Meet at least 75% of protein and energy needs via PO and ONS Anticipated Discharge Needs: Cardiac Follow-Up By: 12/24/20 Additional Comments FU for stable intakes
[2020-12-18 08:37] LABS: INR 1.04 (0.87-1.13)
[2020-12-18] MEDS: VALSARTAN 40 MG TAB PO SCH (10:22)
[2020-12-18] MEDS: guaiFENesin ER 600 MG TAB PO SCH (10:22)
[2020-12-18] MEDS: METOPROLOL TARTRATE 25 MG TAB PO SCH (10:22)
[2020-12-18] MEDS: NIFEdipine XL 30 MG TAB PO SCH (10:22)
[2020-12-18 10:24] VITALS: BP 136/94
[2020-12-18] MEDS ORDERED: APIXABAN 5 MG TAB PO SCH (14:00)
--- NOTE | 2020-12-18 14:24 | Event Note ---
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 Does not change recommendations of 3 months of anticoagulation. Discussed with Dr. Taylor.
--- NOTE | 2020-12-18 14:29 | Vascular Lab Report ---
DUPLEX DOPPLER LOWER EXTREMITY VEINS, BILATERAL INDICATION / CLINICAL INFORMATION: pe. Patient on heparin drip. TECHNIQUE: Duplex doppler imaging was performed through the veins of both lower extremities using johanna ous compression and other maneuvers. COMPARISON: None available. FINDINGS: RIGHT COMMON FEMORAL VEIN: Negative. RIGHT FEMORAL VEIN: Negative. RIGHT POPLITEAL VEIN: Negative. RIGHT CALF VEINS: Negative. LEFT COMMON FEMORAL VEIN: Negative. LEFT FEMORAL VEIN: Negative. LEFT POPLITEAL VEIN: Negative. LEFT CALF VEINS: There is occlusive thrombus noted within the gastrocnemius vein in the proximal calf . ADDITIONAL FINDINGS: None. IMPRESSION: 1. No sonographic evidence for DVT in either lower extremity. 2. Occlusive superficial thrombus within the left gastrocnemius vein in the proximal calf. 3. Results were communicated by the technologist to patient's nurse, Gordo, at 1316. Scribed by: Amaya Shelton RDMS, RVT Scribed: 12/18/2020 1:03 PM Signer Name: Lm Rangel MD Signed: 12/18/2020 2:25 PM Workstation Name: [id number] Dish
--- NOTE | 2020-12-18 14:32 | Discharge Summary ---
Providers - Providers Date of Admission: 12/05/20 14:57 Date of discharge: 12/18/20 Attending physician: DEYANIRA JUNIOR MD 12/06/20 15:18 Consult to Physician [CONS] Routine Comment: Consulting Provider: IDALIA CLARK Physician Instructions: Reason For Exam: COVID+ w/hypoxia 12/17/20 09:51 Consult to Interventional Radiology [CONS] Routine Consulting Provider: WATSON SU Reason For Exam: PE, Rt heart strain Notified:: notified Primary care physician: [employer] Hospitalization Reason for admission: Acute hypoxic respiratory failure, COVID-19 infection, PE, DVT Condition: Serious Pertinent studies: CTA Bilateral Doppler ultrasound of the lower extremities Hospital course: History of present illness: 35-year-old -Indian male with no significant past medical history comes in for nausea vomiting and generalized weakness. Also intermittent shortness of breath and subjective fever. Denies any cough. Patient went to an urgent care facility this afternoon and had a negative [id number] Covid test was false found to have a low oxygen saturation and was sent to the emergency room for evaluation. No exposure to coronavirus. Patient also has vomiting and diarrhea for the last 3 to 4 days Hospital Course 35-year-old -Indian male with no significant past medical history comes in for nausea vomiting and generalized weakness. Also intermittent shortness of breath and subjective fever. Denies any cough. Patient went to an urgent care facility and had a negative [id number] Covid test, however pt found to have a low oxygen saturation and was sent to the emergency room for evaluation. Patient also has vomiting and diarrhea for the last 3 to 4 days. Currently admitted for positive Covid test during hospital stay, currently on Solu-Medrol and remdesivir, infectious disease following. Acute hypoxic respiratory failure COVID-19 pneumonia Bilateral pneumonia Acute kidney injury Sepsis Acute gastroenteritis Transaminitis Hyponatremia 12/06: pt continues to have SOB w/exertion, no diarrhea however decreased PO intake. COVID PCR+, infectious disease consulted. 12/07: pt without diarrhea, tolerating diet. on 4L NC O2, continues to have SOB 12/08 pt seen, no distress, on 4L O2. spoke with nurse to walk pt w/o O2, remdesivir started. pt states he's feeling better, would like to be weaned off O2 12/09 patient seen, on 5 L of oxygen. Spoke with respiratory, attempt to wean patient down. Patient has pending ambulatory oxygen study. 12/10. Patient still requiring 5 L of oxygen via nasal cannula. Check exercise pulse oximetry for further evaluation. Continue dexamethasone and remdesivir. Continue to trend inflammatory markers of ferritin, D-dimer, CRP and LDH. Prone positioning as possible. Continue Macrobid for UTI. Urine culture negative x24 hours 12/11. Patient still requiring 5 L of oxygen via nasal cannula. Check exercise pulse oximetry for further evaluation. Continue dexamethasone and remdesivir. Continue to trend inflammatory markers of ferritin, D-dimer, CRP and LDH. Prone positioning as possible. Continue Macrobid for UTI. Blood cultures remain negative. 12/12. Patient remains on 5 L of oxygen. Attempted to decrease O2 to 4 L and sats went down into the high 80s. Unable to tolerate titration. Presently on dexamethasone remdesivir. 12/13. Patient remains on 5 L of oxygen. Continue to wean oxygen supplementation as tolerated. Continue dexamethasone and remdesivir. Prone positioning as possible. Continue to trend inflammatory markers. Macrobid for UTI. 12/14. Patient's oxygen requirements have been decreased to 3 L. Check exercise pulse oximetry today. Dexamethasone (01/06). Completed remdesivir. Macrobid completed for UTI. Patient is uninsured but Case management reports patient can afford home oxygen at $75 per month 12/15. Patient still with desaturations with pulse oximetry with exercise on oxygen. Patient noted to desat to mid 80s on 3 L of oxygen. Completed remdesivir. Completed Macrobid for UTI. Continue dexamethasone. 12/16. Check exercise pulse oximetry today. Dexamethasone (02/06). Completed remdesivir. Macrobid completed for UTI. Patient is uninsured but Case management reports patient can afford home oxygen at $75 per month 12/17/2020; patient need home oxygen. Will discuss with case management for oxygen arrangement. Patient is on dexamethasone 03/08. Completed remdesivir. Patient completed will be for UTI. Patient was tachycardic yesterday and CTA was ordered and result is pending. Disposition; can be discharged once CTA chest result is obtained and oxygen is arranged. Patient oxygen saturation dropped down yesterday after 6-minute walk to 84% and recovered to 92% with 3 L of oxygen. CTA this was done this morning and patient has bilateral PE with moderate right ventricular strain. Patient placed on heparin drip, discussed with vascular surgery Dr. Armenta. Echo was ordered. BNP and troponin ordered by vascular surgery. Continue patient care and disposition is per clinical course. 12/18/2020; patient has PE and was evaluated by vascular surgery for right ventricular strain and he was evaluated and no intervention needed at this time. Continue with anticoagulation. BNP and troponin was negative. Echo was done and results pending. Bilateral Doppler ultrasound was ordered. Patient is uninsured and need to be on Coumadin. Patient was seen and evaluated and patient was stable. Bilateral Doppler ultrasound of the lower extremity was done and showed DVT in the left lower extremity. I have discussed with Dr. Armenta and he recommended okay to discharge with anticoagulation. Echo was done and did not show right ventricular strain. I discussed with case management and said they are going to arrange Eliquis as an outpatient, they gave him a coupon and gave him doctor's office to have follow-up. Case management told me he will get Eliquis [id number]. I told him the patient need to take Eliquis at least for 3 months. Patient required home oxygen arranged for him. Patient was hemodynamically stable at the time of discharge. I have explained in detail about the management plan and was in agreement with the plan of care. Disposition: DC-01 TO HOME OR SELFCARE Final Discharge Diagnosis (Prints w/discharge instructions): Acute hypoxic respiratory failure. COVID-19 infection. PE. Left lower extremity DVT Time spent for discharge: 35-minutes - Discharge Diagnoses (1) Lower respiratory tract infection due to COVID-19 virus Status: Acute (2) Acute respiratory failure with hypoxia Status: Acute (3) DVT (deep venous thrombosis) Status: Acute (4) Pulmonary embolism Status: Acute Core Measure Documentation - Palliative Care Palliative Care/ Comfort Measures: Not Applicable - Core Measures Any of the following diagnoses?: DVT/PE - VTE Discharge Requirements Deep Vein Thrombosis/Pulmonary Embolism Present on Admission: Yes Has pt received <5 days of overlap therapy or INR<2.0: Yes Anticoagulant overlap therapy prescribed at discharge: No Contraindication No Overlap Therapy order at DC: Not Indicated Exam - Physical Exam Narrative exam: Patient is on 3 L of oxygen The patient is morbidly obese. Vital signs as documented. Head exam is unremarkable. No scleral icterus . Neck is without jugular venous distension, thyromegaly, or carotid bruits. Lungs are clear to auscultation. Cardiac exam reveals regular rate and Rhythm. Abdominal exam reveals normal bowel sounds, nontender, no organomegaly. Extremities are nonedematous and both femoral and pedal pulses are normal. 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 No focal weakness. - Constitutional Vitals: Temp Pulse Resp BP Pulse Ox 100.0 F H 120 H 20 136/94 95 12/17/20 21:49 12/17/20 22:03 12/17/20 22:03 12/18/20 10:22 12/18/20 08:40 Plan Activity: no restrictions Weight Bearing Status: Full Weight Bearing Diet: regular Follow up with: PRIMARY CARE, [Primary Care Provider] - 3-5 Days Forms: Warfarin Discharge Instruction Prescriptions: Valsartan [Diovan] 80 mg PO Q12HR #60 tablet Apixaban [Eliquis] 5 mg PO BID #74 tablet Metoprolol [Lopressor TAB] 25 mg PO BID #60 tablet NIFEdipine XL [Procardia Xl] 30 mg PO Q12HR #60 tablet
[2020-12-18 16:21] LABS: Hematocrit 41.3 % (35.5-45.6); Mean Corpuscular HGB Conc 34 % (32-34); Mean Corpuscular Volume 86 fl (84-94); Platelet Count 341 K/mm3 (140-440); Red Blood Count 4.78 M/mm3 (3.65-5.03); Red Cell Distribution Width 14.2 % (13.2-15.2)
[2020-12-18 16:30] LABS: INR 1.15 (0.87-1.13)
[2020-12-18 16:31] LABS: Partial Thromboplastin Time 37.8 Sec. (24.2-36.6)
[2020-12-18] MEDS ORDERED: WARFARIN 10 MG TAB PO SCH (17:00)
--- NOTE | 2020-12-19 09:29 | Electrocardiograph Report ---
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
--- NOTE | 2020-12-19 09:38 | Electrocardiograph Report ---
[facility] Test Date: 2020-12-18 Test Time: 14:53:12 Pat Name: CANDIE FUNG Department: Room: A359 1 Gender: M Tow Feeder: CHERI : 1985 Requested By: DEYANIRA JUNIOR Order Number: [id number] Reading MD: Jose Angel Baird Measurements Intervals [place] Rate: 102 P: 55 AR: 129 QRS: -24 QRSD: 86 T: 50 QT: 328 QTc: 429 Interpretive Statements Sinus tachycardia Compared to ECG 12/16/2020 15:41:56 No significant changes Electronically Signed On 12-19-2020 9:37:37 EDT by Jose Angel Baird
[2020-12-25] MEDS ORDERED: APIXABAN 5 MG TAB PO SCH (10:00)
== END 2020-12-18 19:40 | disposition home or self-care (01) | DRG 871 ==
LOC: ED 11:35 → 3A 14:57
PROVIDERS: ADMIT Internal Medicine; ATTEND Internal Medicine
PROC: XW033E5 Introduction of Remdesivir Anti-infective into Peripheral Vein, Percutaneous Approach, New Technology Group 5 (ICD-10-PCS; principal; 2020-12-07)
DX: A41.9 Sepsis, unspecified organism (principal); U07.1 COVID-19; J96.01 Acute respiratory failure with hypoxia; J12.82 Pneumonia due to coronavirus disease 2019; N17.9 Acute kidney failure, unspecified; E87.1 Hypo-osmolality and hyponatremia; N39.0 Urinary tract infection, site not specified; Z20.822 Contact with and (suspected) exposure to COVID-19; R65.20 Severe sepsis without septic shock; R79.89 Other specified abnormal findings of blood chemistry; K52.9 Noninfective gastroenteritis and colitis, unspecified; N28.9 Disorder of kidney and ureter, unspecified; Z82.49 Family history of ischemic heart disease and other diseases of the circulatory system; Z79.899 Other long term (current) drug therapy; Z79.891 Long term (current) use of opiate analgesic; Z79.01 Long term (current) use of anticoagulants
CPT/HCPCS: 36415; 71046; 71275; 80053; 81001; 82140; 82565; 82728; 82805; 83615; 83880; 84145; 84484; 85014; 85018; 85025; 85027; 85049; 85379; 85520; 85610; 85730; 86140; 87040; 87086; 93005; 93306; 93970; 96365; 96375; G0378; J0456; J0696; J1100; J1644; J1650; J2405; J2930; J7040; J8540; Q9967; U0003